=== PATIENT | male | born 1935 | race Caucasian/White ===

== ENCOUNTER → 2017-03-19 | Day surgery (SDC) | payer MEDICARE, BC ==
[2017-03-18 12:30] VITALS: BMI 30.7
[~2017-03-19] MED LIST: Diprivan 20 ML ONE; Propofol 200 MG/20 ML VIAL ONE
--- NOTE | 2017-03-19 09:13 | ECHO ---
TRANSESOPHAGEAL ECHOCARDIOGRAM: DATE OF PROCEDURE: 03/19/17 INDICATION: This is an 81-year-old gentleman with chronic atrial fibrillation. Status post Watchman procedure. DESCRIPTION OF PROCEDURE: The patient was taken to the PACU. The patient was sedated by anesthesiology. A transesophageal probe was placed in the distal esophagus and stomach. Echocardiographic images were obtained. The transesophageal probe was removed. FINDINGS: 1. Moderate decrease in left ventricular systolic function. 2. Biatrial enlargement. 3. Left ventricle is dilated. 4. Moderate mitral regurgitation. 5. Moderate to severe aortic regurgitation. 6. Three small leaflets were noted in the Watchman device. A 2 mm in the center of the device with two peripheral 1 mm leaks noted. 7. Atherosclerotic debris in the descending aorta. 8. Defibrillator wires noted in the right ventricle. IMPRESSION: Status post Watchman with three small leaks with the largest approximately 2 mm. MTDD
--- NOTE | 2017-03-20 06:26 | EKG ---
Test Reason : PREOP ALFONSO Blood Pressure : / mmHG Vent. Rate : 080 BPM Atrial Rate : 079 BPM P-R Int : 000 ms QRS Dur : 164 ms QT Int : 482 ms P-R-T Axes : 000 023 118 degrees QTc Int : 555 ms Electronic ventricular pacemaker Confirmed by BRENDA QUINTANILLA ([id number]) on 03/20/2017 6:26:37 AM Referred By: NETTIE Confirmed By:BRENDA QUINTANILLA
== END ==
LOC: CCL 05:43
PROVIDERS: ATTEND Internal Medicine Cardiovascular Disease
DX: I48.1 Persistent atrial fibrillation (principal); I48.2 Chronic atrial fibrillation; I08.0 Rheumatic disorders of both mitral and aortic valves; I11.9 Hypertensive heart disease without heart failure; R60.9 Edema, unspecified; C92.10 Chronic myeloid leukemia, BCR/ABL-positive, not having achieved remission; T82.538A Leakage of other cardiac and vascular devices and implants, initial encounter; N40.1 Benign prostatic hyperplasia with lower urinary tract symptoms; N39.498 Other specified urinary incontinence; R33.8 Other retention of urine; Z79.01 Long term (current) use of anticoagulants; Z79.899 Other long term (current) drug therapy; Z95.810 Presence of automatic (implantable) cardiac defibrillator; Z95.818 Presence of other cardiac implants and grafts; Z91.81 History of falling
CPT/HCPCS: 93005; 93010; 93312; J2704

== ENCOUNTER 2017-07-14 14:40 | Inpatient (IN) | payer MEDICARE, BC ==
[2017-07-14 15:49] LABS: Bilirubin Small (Negative); Blood, Urine Large (Negative); Clarity TURBID (Clear); Glucose, Urine (Dipstick) Negative (Negative); Leukocyte Large (Negative); Nitrite Negative (Negative); Protein, Urine (Dipstick) Trace mg/dL (Neg-Trace); Specific Gravity, Urine 1.018 (1.002-1.036)
--- NOTE | 2017-07-14 15:50 | RAD ---
PORTABLE CHEST ONE VIEW: 07/14/17 at 3:31 p.m. HISTORY: Cough, wheezing, shortness of breath. FINDINGS/IMPRESSION: Comparison made with exam dated 12/25/10. Left sided pacing device has been placed in the interim. The heart is enlarged. There is consolidatio n/atelectatic changes in the left lung base with probable complete effusion. No pneumothoraces are se en. There is no evidence of karoline pulmonary edema. POS: [facility]
[2017-07-14 15:51] LABS: Bacteria/HPF 3+ HPF (None Seen); Hyaline Casts/LPF 0-3 HYALINE CAST LPF (0-3 Hyaline); Pathc Cast-AUWi Flag 0.13 (0-2.49); RBC/HPF 21-50 HPF (0-3); Squamous Epithelial None Seen HPF (0-3)
--- NOTE | 2017-07-14 15:51 | CT ---
CT BRAIN WITHOUT CONTRAST: HISTORY: Altered mental status. COMPARISON: None. FINDINGS: No acute territorial infarct or hemorrhage. No midline shift or mass effect. Mild atrophy. Mild mi crovascular ischemic changes. The calvarium is intact. The paranasal sinuses and mastoids are clear. IMPRESSION: No acute intracranial abnormality. POS: [facility]
[2017-07-14 15:57] LABS: #Lymphocytes 0.4 thou/uL (1.20-3.40); #Monocytes 0.5 thou/uL (0.11-0.59); #Neutrophils 9.6 thou/uL (1.40-6.50); %Basophils 0.5 % (0.0-1.0); %Eosinophils 0.2 % (0.0-10.0); %Lymphocytes 3.7 % (21.0-51.0); %Monocytes 4.5 % (0.0-10.0); %Neutrophils 91.2 % (42.0-75.0); Hemoglobin 12.9 g/dL (14.0-18.0); Mean Corpuscular Hemoglobin 33.1 pg (27.0-31.0); Platelet Count 126 thou/uL (130-400); RBC Distribution Width 16.1 % (11.5-14.5); Red Blood Cell (RBC) Count 3.91 mill/uL (4.70-6.10); White Blood Cell (WBC) Count 10.5 thou/uL (4.8-10.8)
[2017-07-14 15:59] LABS: Yeast-AUWi Flag 114.5 (0-25.0)
[2017-07-14 16:01] LABS: INR-International Normal Ratio 1.3; PTT 24.5 SEC (22.9-36.1); Prothrombin Time 16.6 SEC (12.0-14.7)
[2017-07-14 16:09] LABS: ALT (SGPT) 33 U/L (8-55); AST (SGOT) 34 U/L (5-34); Albumin 3.2 g/dL (3.4-4.8); Alkaline Phosphatase 135 U/L (40-150); Anion Gap 14 mmol/L (10-20); BUN (Urea Nitrogen) 89 mg/dL (8.4-25.7); CK (CPK) 45 U/L (30-200); Calc. Creatinine Clearance 0 mL/min (70-130); Calcium 8.8 mg/dL (7.8-10.44); Carbon Dioxide 25 mmol/L (23-31); Chloride 106 mmol/L (98-107); Estimated GFR-MDRD 33; Glucose 149 mg/dL (83-110); Lipase 24 U/L (8-78); Potassium 5.3 mmol/L (3.5-5.1); Protein, Total 6.2 g/dL (5.8-8.1); Sodium 140 mmol/L (136-145)
[2017-07-14 16:10] LABS: Yeast-All Forms None Seen HPF (None Seen)
[2017-07-14 16:11] LABS: Actual Bicarbonate (HCO3a) 26.7 mEq/L (22-26); CO2 Tension 61.7 mmHg (35.0-45.0); O2 Tension (PaO2) 79.9 mmHg (80.0-100.0); pH, Arterial 7.25 (7.35-7.45)
[2017-07-14 16:12] LABS: Base Excess (BEa) -1.4 mEq/L (0 (+/-) 2.5); Hematocrit-ABG 38.5 % (42.0-52.0); Hemoglobin (Hb) 12.1 g/dL (14.0-18.0)
[2017-07-14 16:13] LABS: ALV-art Gradient 42.615 (0-20); Analyzer IN Cardio ER; Calcium, Ionized 1.2 mmol/L (1.12-1.30); Puncture Site RBRACH
[2017-07-14 16:14] LABS: Troponin I 0.115 ng/mL (< 0.028)
[2017-07-14 16:15] LABS: CKMB 7.4 ng/mL (0-6.6)
[2017-07-14 16:16] LABS: Anisocytosis SLIGHT = 6-15 cells (100X) (0-5/hpf); MDiff Complete? YES; Macrocytosis SLIGHT = 6-15 cells (100X) (0-5/hpf); Ovalocytes SLIGHT = 2-5 cells (100X) (0-1/hpf); PLT Morphology Comment Appears Decreased; Polychromasia SLIGHT = 2-3 cells (100X) (0-2/hpf); Tear Drops SLIGHT = 2-5 cells (100X) (0-1/hpf)
[2017-07-14] MEDS ORDERED: Vecuronium 10 MG VIAL ONE (16:46)
[2017-07-14] MEDS ORDERED: Water For Injection,Sterile 20 ML ONE (16:47)
[2017-07-14 17:35] LABS: CO2 Tension 34.6 mmHg (35.0-45.0); pH, Arterial 7.43 (7.35-7.45)
[2017-07-14 17:36] LABS: Actual Bicarbonate (HCO3a) 22.6 mEq/L (22-26); Base Excess (BEa) -1.1 mEq/L (0 (+/-) 2.5); Calcium, Ionized 1.1 mmol/L (1.12-1.30); Hematocrit-ABG 36.1 % (42.0-52.0); Hemoglobin (Hb) 11.5 g/dL (14.0-18.0); O2 Tension (PaO2) 112.7 mmHg (80.0-100.0)
[2017-07-14 17:37] LABS: Analyzer IN Cardio ER; Puncture Site LRA
[2017-07-14] MEDS ORDERED: Sedation Protocol FS ONE (17:42)
[2017-07-14] MEDS ORDERED: Aspirin 300 MG Suppository ONE (17:44)
[2017-07-14] MEDS ORDERED: cefTRIAXone\\ROCEPHIN 1 GM in Sodium Chloride 0.9% 100 ML IVPB SCH (17:45)
[2017-07-14] MEDS ORDERED: DISCONTINUE PREVIOUS NARCOTIC PAIN MEDICATIONS AND BENZODIAZEPINES FS SCH (17:55)
[2017-07-14] MEDS ORDERED: Propofol 1,000 MG/100 ML VIAL IV PRN (17:55)
[2017-07-14] MEDS ORDERED: Lorazepam 2 MG/ML VIAL SLOW IVP PRN (17:55)
[2017-07-14] MEDS ORDERED: Morphine 2 MG/ML SYRINGE SLOW IVP PRN (17:55)
[2017-07-14] MEDS ORDERED: Fentanyl BOLUS 250 ML IVPB PRN (17:55)
[2017-07-14] MEDS ORDERED: fentaNYL Citrate/PF 2,000 MCG in Sodium Chloride 0.9% 60 ML IV SCH (18:00)
[2017-07-14] MEDS ORDERED: Fentanyl CADD 0 ML ONE (19:00)
[2017-07-14] MEDS ORDERED: Fentanyl 100 MCG/2 ML VIAL ONE (19:00)
[2017-07-14 19:06] LABS: Troponin I 0.116 ng/mL (< 0.028)
[2017-07-14] MEDS ORDERED: Lorazepam 2 MG/ML VIAL ONE (19:08)
--- NOTE | 2017-07-14 19:31 | RAD ---
PORTABLE CHEST 07/14/17 HISTORY: Post central line placement. COMPARISON: Earlier exam same day. Endotracheal and NG tubes have been placed. NG tube tip is below the hemidiaphragm. Endotracheal tube is in satisfactory position. The right subclavian line is placed. Catheter tip overlying the superio r vena cava. I see no signs of pneumothorax. Pleural and parenchymal changes in the left base appears stable. IMPRESSION: 1. Right subclavian line. Catheter tip overlying the superior vena cava. No signs of pneumothora x. 2. Endotracheal and NG tubes in satisfactory position. POS: [facility]
[2017-07-14] MEDS ORDERED: Nitroglycerin 0.4 MG TAB (25 Tab Bottle) PO PRN (21:00)
[2017-07-14] MEDS ORDERED: Bisacodyl 10 MG SUPP PR PRN (21:00)
[2017-07-14] MEDS ORDERED: Ondansetron ODT 4 MG TAB PO PRN (21:00)
[2017-07-14] MEDS ORDERED: Ondansetron HCl/PF 4 MG/2 ML Vial IVP PRN (21:00)
[2017-07-14] MEDS: cefTRIAXone\\ROCEPHIN 1 GM, Syringe 0.4 ML in Sterile Water 9.6 ML SLOW IVP SCH (21:01)
[2017-07-14] MEDS ORDERED: Lacri-Lube Opth Oint 3.5 GM TUBE EA EYE PRN (21:02)
[2017-07-14] MEDS ORDERED: Acetaminophen 650 MG/20.3 ML UDCUP PO PRN (21:05)
[2017-07-14] MEDS ORDERED: Carvedilol 3.125 MG TAB PER TUBE SCH (21:15)
--- NOTE | 2017-07-14 21:35 | HP ---
DATE OF ADMISSION: 07/14/2017 PRIMARY CARE PHYSICIAN: Dr. Tico Flores. PRIMARY RECRUITING ASSISTANT: Dr. Remington Raygoza. PRIMARY UROLOGIST: Dr. Gideon Guillen. CHIEF COMPLAINT: Shortness of breath, generalized weakness with fever of 3 days' duration. HISTORY OF PRESENT ILLNESS: Patient is an 82-year-old white male with chronic systolic heart failure ; chronic atrial fibrillation, status post Watchman procedure; hypertension; prostate cancer, status post suprapubic catheter; and CML presented to the hospital by EMS with above complaints. Patient was discharged from inpatient rehabilitation last week. Over the last 3-4 days, patient deve loped gradual worsening shortness of breath along with generalized weakness. He was febrile since night. The shortness of breath was worse on lying down as well as minimal exertion. He also had some cough productive of small amount of thick phlegm. Patient tried using [id number] cough me dications without much help. The home healthcare nurse instructed, the patient to call EMS after dis cussion with his primary care physician. In the emergency room, his initial vital signs showed temperature 97.7, respirations 19, pulse of 74, blood pressure of 117/62 with O2 saturation of 88% on room air. His initial blood gas showed pH of 7.25 with pCO2 of 61.7. He was subsequently intubated and placed on mechanical ventilation. His inf luenza B testing was positive. His troponin was 0.115 with BNP closed to 9000. His creatinine was a lso elevated at 1.93 compared to his baseline of 1.3. He received Levaquin, vancomycin, aspirin with IV fluids. A central line was also placed. PAST MEDICAL HISTORY: 1. Chronic systolic heart failure, ejection fraction 30%-35% range, status post AICD. This was upgr aded to biventricular ICD in 01/2017. 2. Hypertension. 3. Chronic kidney disease, stage 3. 4. Chronic myeloid leukemia. 5. Prostatic enlargement with urinary retention, status post suprapubic catheter. 6. Chronic atrial fibrillation, status post Watchman device. Patient is not on anticoagulation at t his time. 7. History of recurrent falls. 8. Physical deconditioning. 9. Chronic venous stasis with ulceration followed by home wound care. PAST SURGICAL HISTORY: 1. Thyroglossal duct excision. 2. Hemorrhoidectomy. 3. Uvula surgery. 4. Decortication of the right chest. 5. Defibrillator placement with subsequent upgrade. 6. AV hiren ablation. ALLERGIES: No known drug allergies. CURRENT HOME MEDICATIONS: To be verified with the family. Please note that the history was obtained from the spouse at the bedside. Patient is currently intubated and sedated after noninvasive positi ve pressure ventilation failure. SOCIAL HISTORY: Patient currently lives at home with his family. No tobacco, alcohol, or drug use. He is FULL CODE, makes his own decisions with the help of his family. 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 FAMILY HISTORY: Positive for diabetes. REVIEW OF SYSTEMS: Cannot be obtained from the patient due to current cognitive status. PHYSICAL EXAMINATION: VITAL SIGNS: As discussed above. GENERAL: An 82-year-old male, intubated on mechanical ventilation. HEENT: Head atraumatic, normocephalic. Sclerae anicteric. Dry mucous membranes. No oral lesion. NECK: Supple. Neck veins somewhat distended. No carotid bruit. LUNGS: Showed bibasilar crackles with scattered rhonchi. No wheezing. Endotracheal tube noted. HEART: S1, S2 present. Regular rate and rhythm. No rubs or gallops appreciated, 2/6 systolic murmu r over the mitral area. ABDOMEN: Soft, bowel sounds present. No rigidity or guarding. EXTREMITIES: Changes from chronic venous stasis right leg more than left leg noted. There was 2+ ed yifan. NEUROLOGIC AND PSYCHIATRIC: Could not be done due to current cognitive status. SKIN: As discussed above. LYMPH NODES: No palpable lymph nodes in the neck. PERIPHERAL VASCULAR: Radial pulses palpable bilaterally. MUSCULOSKELETAL: No joint swelling or tenderness. LABORATORY FINDINGS: As discussed above. Platelet was 126 with hemoglobin 12.9. ABGs as discussed above. Potassium was 5.3. Repeat troponin 0.116. Urinalysis showed greater than 50 wbc's with 3+ b acteria. Influenza B testing was positive. Chest x-ray by my review showed consolidation at the lef t lung base. EKG by my review showed paced rhythm. IMPRESSION: 1. Acute hypoxic and hypercapnic respiratory failure secondary to pneumonia and influenza B infectio n. 2. Healthcare-associated pneumonia, suspected pneumococcal. 3. Acute influenza B infection. 4. Chronic systolic heart failure, ejection fraction 30%-35% range, status post biventricular AICD. 5. Hyperkalemia. 6. Acute kidney injury on chronic kidney disease, stage 3. 7. Chronic anemia. 8. Thrombocytopenia. 9. History of chronic-myeloid leukemia. 10. History of atrial fibrillation, status post Watchman device. 11. Chronic venous stasis with ulceration followed by Wound Care. 12. 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 13. Physical deconditioning. 14. Abnormal liver function tests, probably secondary to passive hepatic congestion from congestive heart failure. Bilirubin was 2.0. 15. Questionable urinary tract infection versus colonization from suprapubic catheter. 16. Elevated troponins probably secondary to demand ischemia. 17. Mild protein-calorie malnutrition. PLAN: Patient will be monitored in the critical care unit. Empiric antibiotics will be continued. We will treat influenza B with Tamiflu dose adjusted for renal function. Cardiology, Pulmonary, and Urology consultation. Repeat labs on the daily basis. Gentle IV hydration due to acute kidney injur y. Hold diuretics for now. Confirm home medications and start accordingly. Vital signs per protoco l. Nebulizer treatment as needed.
[2017-07-14] MEDS: Famotidine/PF 20 mg/2ml Vial SLOW IVP SCH (21:50)
[2017-07-14] MEDS: Oseltamivir 6 MG/ML ORAL SUSP PO SCH (21:51)
[2017-07-14 22:37] LABS: Troponin I 0.113 ng/mL (< 0.028)
--- NOTE | 2017-07-15 02:52 | CON ---
DATE OF CONSULTATION: 07/14/2017 HISTORY OF PRESENT ILLNESS: Clement Alvarez is an 82-year-old gentleman whom I have seen in the remote past. I got his extensive history from his . He is presently intubated. He came to the ER with mental status change, found to be hypoxic, less responsive, ER physician intubated him. states for the last week, he has been feeling poorly. He has been having a cough, but over the last 24-48 hours, his condition got worse with fever, yellow sputum. Called the primary care physici an, Dr. Flores, he was told to come to the hospital and get admitted. Extensive history as previously outlined. In January, he underwent a Watchman procedure at [facility]. Hospital course was complicated by him having a suprapubic placed and he has got a large prostate . He then saw [facility] urologist, Dr. Guillen, and placed a suprapubic. We actually planned to duffy ve resection, but because of his overall weakness, this has been postponed. He was in the rehab for a period of time, has had home health at home with marked lower extremity swelling and marked weaknes s. The appetite has been good. PAST MEDICAL HISTORY: Pertinent for previous CLL, chronic atrial fibrillation, renal failure. PAST SURGICAL HISTORY: As noted decortication years ago, hemorrhoid surgery, pacemaker insertion, AI CD. MEDICATIONS: List of medicine from home includes Coumadin 5, , Entresto, Lasix 60, , Coreg 50 twice a day, Tylenol, Xanax. ALLERGIES: None. SOCIAL HISTORY: No tobacco abuse at this time. FAMILY HISTORY: Unremarkable. 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 He does have vision problems basically. REVIEW OF SYSTEMS: Unobtainable. Post-intubation, he is sedated on the vent. PHYSICAL EXAMINATION: VITAL SIGNS: His sats were 96%, blood pressure 130/80, respirations 18. CHEST: Bilateral rhonchi. CARDIOVASCULAR: Normal S1, S2. No gallops. IMAGING: All x-rays and reports were reviewed. He has got cardiomegaly, pacemaker, left pleural eff usion. CT of the brain was unremarkable. LABORATORY DATA: White count 10,000, H&H 12 and 41, platelet count is 126. PO2 prior to intubation 79, pCO2 of 60, pH 7.25; post-intubation, pO2 of 112, pCO2 of 37, pH 7.43. INR is 1.3. Creatinine is 1.93, BUN is 89. BNP was 8883. CK-MB 74. Urine shows blood. Influenza A is positive. IMPRESSION: 1. Multiorgan failure. 2. Influenza A with superimposed tracheobronchitis pneumonia. 3. Indwelling Dailey. 4. Recent Watchman. 5. Stasis. 6. Renal failure. 7. Respiratory failure. 8. Previous decortication. PLAN: He will be transferred to the ICU once the bed is available. Vent support, Tamiflu, antibiotics, minimize sedation. Forty minutes critical care time.
[2017-07-15 05:37] LABS: #Lymphocytes 0.4 thou/uL (1.20-3.40); #Monocytes 0.3 thou/uL (0.11-0.59); #Neutrophils 8.7 thou/uL (1.40-6.50); %Basophils 0.1 % (0.0-1.0); %Eosinophils 0.2 % (0.0-10.0); %Lymphocytes 4.1 % (21.0-51.0); %Monocytes 3.4 % (0.0-10.0); %Neutrophils 92.2 % (42.0-75.0); Hemoglobin 11.4 g/dL (14.0-18.0); Mean Corpuscular HGB CONC 32.2 g/dL (32.0-36.0); Mean Corpuscular Hemoglobin 33.4 pg (27.0-31.0); Mean Platelet Volume 9.1 fL (7.4-10.4); Platelet Count 103 thou/uL (130-400); Red Blood Cell (RBC) Count 3.42 mill/uL (4.70-6.10); White Blood Cell (WBC) Count 9.5 thou/uL (4.8-10.8)
[2017-07-15 05:58] LABS: Digoxin 0.79 ng/mL (0.8-2.0)
[2017-07-15 06:05] LABS: ALT (SGPT) 28 U/L (8-55); AST (SGOT) 31 U/L (5-34); Albumin 2.5 g/dL (3.4-4.8); Alkaline Phosphatase 105 U/L (40-150); Anion Gap 12 mmol/L (10-20); BUN (Urea Nitrogen) 86 mg/dL (8.4-25.7); Bilirubin, Total 1.6 mg/dL (0.2-1.2); Calc. Creatinine Clearance 40 mL/min (70-130); Calcium 8.4 mg/dL (7.8-10.44); Carbon Dioxide 27 mmol/L (23-31); Chloride 109 mmol/L (98-107); Estimated GFR-MDRD 36; Globulin 2.4 g/dL (2.4-3.5); Glucose 74 mg/dL (83-110); Magnesium 2.2 mg/dL (1.6-2.6); Phosphorus 3.4 mg/dL (2.3-4.7); Potassium 4.5 mmol/L (3.5-5.1); Protein, Total 4.9 g/dL (5.8-8.1); Sodium 143 mmol/L (136-145)
[2017-07-15] MEDS ORDERED: ALPRAZolam 0.25 MG TAB PO SCH (06:20)
[2017-07-15 07:47] LABS: Actual Bicarbonate (HCO3a) 23.8 mEq/L (22-26); Analyzer IN Cardio ER; Base Excess (BEa) 0.3 mEq/L (0 (+/-) 2.5); CO2 Tension 34.8 mmHg (35.0-45.0); Calcium, Ionized 1.2 mmol/L (1.12-1.30); Hemoglobin (Hb) 11.4 g/dL (14.0-18.0); O2 Tension (PaO2) 108.8 mmHg (80.0-100.0); pH, Arterial 7.45 (7.35-7.45)
[2017-07-15 07:48] LABS: Puncture Site L.R.
--- NOTE | 2017-07-15 08:16 | RAD ---
PORTABLE CHEST ONE VIEW: Date: 07-15-17 Time: 5:14 a.m. History: Respiratory failure. FINDINGS/IMPRESSION: No significant interval change is seen since the previous day's exam. POS: [facility]
[2017-07-15] MEDS ORDERED: Carvedilol 3.125 MG TAB PER TUBE SCH (09:00)
[2017-07-15] MEDS: Aspirin 81 mg Enteric Coated Tablet PO SCH (09:30)
[2017-07-15] MEDS: Oseltamivir 6 MG/ML ORAL SUSP PO SCH ×2 (09:30→20:32)
[2017-07-15] MEDS: Clopidogrel Bisulfate 75 MG TAB PO SCH (09:30)
[2017-07-15] MEDS: Enoxaparin Sodium 30 MG/0.3 ML SYRINGE SC SCH (09:30)
[2017-07-15] MEDS: Saccharomyces boulardii 250 MG CAP PER TUBE SCH (09:30)
--- NOTE | 2017-07-15 11:01 | PDOC.PN ---
- Subjective Encounter Start Date: 07/15/17 Encounter Start Time: 10:59 Mr. Alvarez was seen in follow-up of acute respiratory failure. He is intubated, and wake, and alert following commands. He indicates no problems. - Objective Resuscitation Status: Resuscitation Status FULL:Full Resuscitation MAR Reviewed: Yes Vital Signs & Weight: Vital Signs (12 hours) Temp Pulse Resp BP 07/15/17 10:25 70 140/55 L 07/15/17 06:49 70 127/55 L 07/15/17 06:00 20 07/15/17 04:00 20 07/15/17 03:00 98.4 F 07/15/17 02:51 70 137/62 07/15/17 02:00 20 07/15/17 00:12 71 136/63 07/15/17 00:00 98 F 20 Weight Weight 197 lb 5.019 oz Most Recent Monitor Data Heart Rate from ECG 70 NIBP 132/60 NIBP BP-Mean 101 Respiration from ECG 20 SpO2 100 I&O: 07/14/17 07/15/17 07/16/17 06:59 06:59 06:59 Intake Total 49 Output Total 890 60 Balance -841 -60 Result Diagrams: 07/15/17 05:15 07/15/17 05:15 Additional Labs: Accuchecks 07/15/17 00:51 POC Glucose 96 Phys Exam - Physical Examination HEENT: PERRLA Respiratory: wheezing present + rhonchi and wheezing bilaterally Cardiovascular: RRR, no significant murmur Gastrointestinal: soft, non-tender, positive bowel sounds Musculoskeletal: edema present trace pedal edema, and chronic venous stasis changes Dx/Plan (1) Acute and chronic respiratory failure Code(s): J96.20 - ACUTE AND CHR RESP FAILURE, UNSP W HYPOXIA OR HYPERCAPNIA Status: Acute (2) Pneumonia, community acquired Code(s): J18.9 - PNEUMONIA, UNSPECIFIED ORGANISM Status: Acute (3) Chronic systolic heart failure Code(s): I50.22 - CHRONIC SYSTOLIC (CONGESTIVE) HEART FAILURE Status: Acute (4) Chronic kidney disease, stage 3 Code(s): N18.3 - CHRONIC KIDNEY DISEASE, STAGE 3 (MODERATE) Status: Acute - Plan * Acute on chronic respiratory failure due to Pneumonia, and INfluenza B- he is currently on the ventilator, wean as per Pulmonary/Critical care * Continue Rocephin and Levaquin * Influenza B- Continue Tamiflu * Chronic systolic heart failure- clinically compensated * Continue GI, and DVT prophylaxis.
--- NOTE | 2017-07-15 11:35 | PRG ---
DATE OF SERVICE: 07/15/2017 SUBJECTIVE: This morning, he is sedated in low dose Diprivan. OBJECTIVE: VITAL SIGNS: Sats are 100%, respirations 18, pulse 80, blood pressure 130/80. GENERAL: He opens his eyes. He is weak. CHEST: Decreased breath sounds without any wheezing. CARDIAC: Normal S1, S2, no gallops. ABDOMEN: Soft, no masses. LABORATORY DATA AND X-RAY FINDINGS: X-ray shows left pleural effusion. White count 9000, H&H is 11 and 35, platelet count is low 103, PO2 was 108, PCO2 34, pH 7.45, rate of 20, 40%. Creatinine is 1.8 , BUN is 86. Albumin is low 2.5. IMPRESSION: Respiratory failure, azotemia, influenza A, severe deconditioning and dementia. PLAN: Start IV fluids at 50 an hour, start nutrition, PT, minimize sedation. In the meantime, deep venous thrombosis prophylaxis, proton pump inhibitors, Tamiflu, antibiotics. W e will follow. One-half hour critical care time.
[2017-07-15] MEDS ORDERED: Sodium Chloride 0.9% 1,000 ML IV SCH (12:00)
[2017-07-15] MEDS ORDERED: DC Sedation Protocol FS ONE (14:16)
[2017-07-15] MEDS: Meropenem 1 GM in Sterile Water 20 ML SLOW IVP SCH (16:07)
--- NOTE | 2017-07-15 18:37 | CON ---
DATE OF CONSULTATION: 07/15/2017 HISTORY OF PRESENT ILLNESS: Clement Alvarez is an 82-year-old gentleman who presents with weakness and respiratory failure. The patient has a history of cardiomyopathy. He previously has had an automatic implantable cardiac defibrillator. He also has had a history of chronic renal insufficiency. The patient also has atrial fibrillation and has undergone Watchman procedure. The patient also has had a suprapubic catheter placed for prostate carcinoma. The patient was in his usual state of health when he started having fevers and chills for several days and he has started feeling extremely weak. The patient was emergently intubated and sent to the ICU. PAST MEDICAL HISTORY: 1. Cardiomyopathy. 2. CML. 3. CAD. 4. Prostate carcinoma. 5. Atrial fibrillation. PAST SURGICAL HISTORY: Hemorrhoidectomy, uvula surgery, and decortication of his chest. ALLERGIES: None. MEDICATIONS: See nursing list. SOCIAL HISTORY: Lives with his . REVIEW OF SYSTEMS: Not obtainable. PHYSICAL EXAMINATION: GENERAL: Intubated gentleman who was sedated with blood pressure 132/57. NECK: Full. LUNGS: Coarse breath sounds bilateral. HEART: Regular rate and rhythm, normal S1, S2 with a 2/6 systolic murmur. ABDOMEN: Distended. EXTREMITIES: Showed moderate bilateral edema. LABORATORY DATA AND IMAGING DATA: White blood count 9.5, hemoglobin 11.4, hematocrit 35.5, and platelets 103. Sodium is 143, potassium 4.5, chloride 109 , bicarbonate 27, BUN 86, creatinine 1.8, troponin 0.113. His EKG revealed ventricular paced rhythm. IMPRESSION: 1. Sepsis, enterococcal sepsis. 2. Influenza. 3. Cardiomyopathy. 4. History of automated implantable cardioverter-defibrillator placement. 5. Permanent atrial fibrillation. 6. History of Watchman device. 7. Chronic renal failure. 8. Prostate carcinoma. 9. History of CLL. PLAN: This gentleman presents with enterococcal sepsis. From a cardiac standpoint, he is receiving IV antibiotics for his infection. We will check an echocardiogram to see if there is any evidence of vegetations. We will follow this patient with you through his hospitalization. Critical care time 30 minutes. [facility]
[2017-07-15] MEDS: Famotidine/PF 20 mg/2ml Vial SLOW IVP SCH (20:31)
[2017-07-15] MEDS: Carvedilol 6.25 MG TAB PER TUBE SCH (20:31)
[2017-07-15] MEDS: cefTRIAXone\\ROCEPHIN 1 GM, Syringe 0.4 ML in Sterile Water 9.6 ML SLOW IVP SCH (20:31)
[2017-07-15] MEDS ORDERED: Meropenem 1 GM in Sodium Chloride 0.9% 100 ML IVPB SCH (22:00)
[2017-07-16] MEDS ORDERED: Dextrose 5% in Water 1,000 ML IV PRN (00:06)
[2017-07-16] MEDS ORDERED: Dextrose 50% Abboject 50 ML SYRINGE IVP PRN (00:06)
[2017-07-16] MEDS: Dextrose 5 %-0.45 % NaCl 1,000 ML IV SCH ×2 (00:07→18:17)
[2017-07-16 04:45] LABS: #Basophils 0.1 thou/uL (0.0-0.2); #Lymphocytes 0.3 thou/uL (1.20-3.40); #Monocytes 0.6 thou/uL (0.11-0.59); #Neutrophils 9.5 thou/uL (1.40-6.50); %Basophils 0.8 % (0.0-1.0); %Eosinophils 0.2 % (0.0-10.0); %Monocytes 5.4 % (0.0-10.0); %Neutrophils 90.7 % (42.0-75.0); Hemoglobin 11.8 g/dL (14.0-18.0); Mean Corpuscular HGB CONC 31.1 g/dL (32.0-36.0); Mean Platelet Volume 8.9 fL (7.4-10.4); Platelet Count 103 thou/uL (130-400); RBC Distribution Width 16.3 % (11.5-14.5); Red Blood Cell (RBC) Count 3.57 mill/uL (4.70-6.10); White Blood Cell (WBC) Count 10.5 thou/uL (4.8-10.8)
[2017-07-16 05:43] LABS: ALT (SGPT) 26 U/L (8-55); AST (SGOT) 27 U/L (5-34); Albumin 2.5 g/dL (3.4-4.8); Alkaline Phosphatase 102 U/L (40-150); Anion Gap 11 mmol/L (10-20); BUN (Urea Nitrogen) 71 mg/dL (8.4-25.7); Bilirubin, Total 1.6 mg/dL (0.2-1.2); Calc. Creatinine Clearance 46 mL/min (70-130); Calcium 8.1 mg/dL (7.8-10.44); Carbon Dioxide 27 mmol/L (23-31); Chloride 112 mmol/L (98-107); Estimated GFR-MDRD 42; Globulin 2.6 g/dL (2.4-3.5); Glucose 77 mg/dL (83-110); Magnesium 2.2 mg/dL (1.6-2.6); Phosphorus 4.1 mg/dL (2.3-4.7); Potassium 4.1 mmol/L (3.5-5.1); Protein, Total 5.1 g/dL (5.8-8.1); Sodium 146 mmol/L (136-145)
--- NOTE | 2017-07-16 08:43 | RAD ---
PORTABLE UPRIGHT FRONTAL CHEST RADIOGRAPH: Date: 07-16-17 History: Ventilated patient. Comparison: 07-15-17 FINDINGS: There is a metallic structure overlying the left aspect of the cardiac silhouette inferior to the lef t mainstem bronchus, stable. This may represent a closure device. Stable right sided vascular cathete r. Nasogastric tube and endotracheal tube have been removed. There is no pneumothorax. There is mild increased linear density in the medial right base, stable. There is dense opacity in the left lung base suggesting left lower lobe consolidation/collapse and le ft pleural effusion. IMPRESSION: Interval removal of endotracheal tube and nasogastric tube. Dense opacity in the left lung base for w hich follow up is advised. POS: [facility]
--- NOTE | 2017-07-16 08:59 | PRG ---
DATE OF SERVICE: 07/16/2017 This morning he is awake and responsive. He was choking on some liquids. X-ray shows pleural effusi on. Echo was done which shows EF is 20% plus apparently there is vegetation in the mitral valve, thi s is something unusual. PHYSICAL EXAMINATION: VITAL SIGNS: Blood pressure 130/56, sats 97, respirations 21, temperature 97. CHEST: Chest revealed decreased breath sounds without any wheezing. CARDIAC: Normal S1-S2. ABDOMEN: Soft. No masses. LABORATORY: White count 10,000, H&H 11 and 30, platelet count 103. Creatinine is 1.5, BUN 71. Albu min 2.4. Enterococcus in the blood. IMPRESSION: 1. Respiratory failure. 2. Encephalopathy with influenza A. 3. Left pleural effusion. 4. Renal failure. 5. Congestive heart failure. 6. Encephalopathy. 7. Deconditioning. 8. Presumably endocarditis. PLAN: Meropenem was started yesterday, adjusted for his renal dose for his Enterococcus, so far the blood cultures are negative. 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 Await input from Cardiology. He already has and elevated BUN and creatinine. He was given diuretics, monitor his renal function. Prognosis remains guarded. I will follow.
[2017-07-16] MEDS: Spironolactone 25 MG TAB PO SCH (09:25)
[2017-07-16] MEDS: Clopidogrel Bisulfate 75 MG TAB PO SCH ×2 (09:26→11:53)
[2017-07-16] MEDS: Aspirin 81 mg Enteric Coated Tablet PO SCH ×3 (09:26→11:54)
[2017-07-16] MEDS: Carvedilol 6.25 MG TAB PER TUBE SCH ×3 (09:26→20:31)
[2017-07-16] MEDS: Sacubitril 24.5 MG/Valsartan 25.5 MG TABLET PO SCH ×3 (09:27→20:32)
[2017-07-16] MEDS: Oseltamivir 6 MG/ML ORAL SUSP PO SCH ×3 (09:27→20:32)
[2017-07-16] MEDS: Saccharomyces boulardii 250 MG CAP PER TUBE SCH ×2 (09:27→11:53)
[2017-07-16] MEDS: Enoxaparin Sodium 30 MG/0.3 ML SYRINGE SC SCH (09:29)
[2017-07-16] MEDS: Meropenem 1 GM in Sterile Water 20 ML SLOW IVP SCH ×4 (09:29→23:41)
--- NOTE | 2017-07-16 09:36 | PDOC.PN ---
- Subjective Encounter Start Date: 07/16/17 Encounter Start Time: 09:34 Mr. Alvarez has been extubated. He is very weak. He denies feeling short of breath. He denies chest pain. - Objective Resuscitation Status: Resuscitation Status FULL:Full Resuscitation MAR Reviewed: Yes Vital Signs & Weight: Vital Signs (12 hours) Temp Pulse Resp Pulse Ox 07/16/17 07:31 97 07/16/17 07:29 70 21 H 97 07/16/17 07:14 97.8 F 70 20 97 07/16/17 03:00 98.8 F 07/15/17 23:33 70 24 H 100 07/15/17 23:00 98.8 F Weight Admit Weight 197 lb Weight 198 lb 6.656 oz Most Recent Monitor Data Heart Rate from ECG 70 NIBP 130/58 NIBP BP-Mean 67 Respiration from ECG 20 SpO2 99 I&O: 07/15/17 07/16/17 07/17/17 06:59 06:59 06:59 Intake Total 49 1420 50 Output Total 890 2075 234 [facility] -841 -655 -184 Result Diagrams: 07/16/17 04:20 07/16/17 04:20 Additional Labs: Accuchecks 07/16/17 07/15/17 07/15/17 04:25 22:57 16:50 POC Glucose 74 68 L 77 Phys Exam - Physical Examination HEENT: PERRLA + wheezing bilaterally no rales Cardiovascular: RRR, no significant murmur Gastrointestinal: soft, non-tender, positive bowel sounds Musculoskeletal: no edema + chronic venous stasis changes Dx/Plan (1) Acute and chronic respiratory failure Code(s): J96.20 - ACUTE AND CHR RESP FAILURE, UNSP W HYPOXIA OR HYPERCAPNIA Status: Acute (2) Pneumonia, community acquired Code(s): J18.9 - PNEUMONIA, UNSPECIFIED ORGANISM Status: Acute (3) Chronic systolic heart failure Code(s): I50.22 - CHRONIC SYSTOLIC (CONGESTIVE) HEART FAILURE Status: Acute (4) Chronic kidney disease, stage 3 Code(s): N18.3 - CHRONIC KIDNEY DISEASE, STAGE 3 (MODERATE) Status: Acute - Plan * Influenza B with Pneumonia- Continue Tamiflu, and Meropenem and Levaquin * Patient has been found to have Enterococcus sepsis, and a possible vegetation on one of his heart valves- will continue Meropenem, and Consult ID for further recommendations * Chronic systolic heart failure- compensated * History of AFIB, and s/p Watchman procedure * CKD stage 3- stable .
[2017-07-16] MEDS: Furosemide 40 MG/4 ML VIAL SLOW IVP SCH (15:28)
--- NOTE | 2017-07-16 17:40 | CON ---
DATE OF CONSULTATION: 07/16/2017 REASON FOR CONSULTATION: Bacteremia. HISTORY OF PRESENT ILLNESS: An 82-year-old who has a history of renal insufficiency and chronic myeloid leukemia and cardiomyopathy with systolic CHF , EF 30%-35% with an AICD in place, recently upgraded to a biventricular ICD in 01/2017. The patient also had a Watchman device placed to allow withholding of anticoagulation because of concern with his falling episodes. Patient also has prostate cancer and enlarged prostate gland and has had a suprapubic catheter placed and is monitored by Dr. Gideon Guillen. The patient was in rehab and then was discharged and over the past few days developed worsening dyspnea and fever and then it became dyspneic to the extent that he could not tolerate any effort. A little bit of cough, but no sputum production. He was then brought to emergency room. In the emergency room, he had a temperature 97, respirations 19, pulse 74, pressure 117/62, O2 sat 88%. Initial pH 7.25 and pCO2 61. Following this, he was intubated. His influenza B test was positive, troponin 0.115. BNP was 9000, creatinine was 1.93, which was elevated compared with his baseline. He was given vancomycin, Levaquin, and IV fluids, central line placed in the right subclavian position, has been extubated and was transferred to the [facility]. He is awake and oriented, a little drowsy, in the room with him, has had no headaches, no visual symptoms, sore throat, odynophagia, dysphagia, no back pain, no chest pain or abdominal pain. His suprapubic catheter has been exchanged by Dr. Guillen. He has had no diarrhea. PAST MEDICAL HISTORY: Cardiomyopathy with EF 30%-35%, AICD in place, Watchman device placed, hypertension, renal insufficiency stage 3, CML, prostate cancer with suprapubic catheter, chronic atrial fibrillation, and venous stasis with ulceration. PAST SURGICAL HISTORY: Thyroglossal duct excision, some uvula surgery, right chest decortication for unknown reason, AICD placement, AV hiren ablation, and Watchman procedure placement. ALLERGIES: None. CURRENT MEDICATIONS: Tylenol, DuoNeb, Ecotrin, Dulcolax, Coreg, ceftriaxone, Plavix, dextrose, enoxaparin, furosemide, levofloxacin, meropenem, oseltamivir, and sacubitril/valsartan. 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 Never smoker, and lives in [place]. FAMILY HISTORY: Diabetes mellitus type 2. PHYSICAL EXAMINATION: VITAL SIGNS: Temperature max of 101, is currently 97.7, blood pressure 119/49, pulse 70, respirations 21, and O2 sat 100%. SKIN: Shows area of bruising in the mental region. He has a lot of areas of bruising in some superficial lacerations in the upper extremities and evidence of stasis dermatitis with shallow punched out ulcers in the feet, right and left side area of extensive bruising in the left lower extremity. The patient has a right subclavian central line and a suprapubic catheter in place. There is no lymphadenopathy. Male pattern alopecia. Oral cavity with still quite numerous teeth in place with the expected decay and gum disease. HEENT: Ocular movements are conjugate. Pupils are equal and reactive. NECK: Supple neck and some jugular venous distention. LUNGS: Basilar inspiratory crackles. HEART: S1, S2 with a soft murmur at the aortic area. Irregular rate. ABDOMEN: Soft, not distended or tender. No ascites. No bladder distention. The suprapubic catheter exit site appears normal, diffusely weak, but able to move four extremities equally. Trace edema in lower extremities. Pulses are 1 + in dorsalis pedis. NEUROLOGIC: He is awake, knows his name, recognizes his , oriented. LABORATORY DATA: White cell count 10.5, hemoglobin 11.8, MCV 106, platelets 103 with 90% neutrophils. INR 1.3. Last blood gas pH 7.45, pCO2 of 34, pO2 108 , sodium 146, creatinine is down to 1.59, calcium 8.1, bilirubin 1.6, AST and ALT normal, alkaline phosphatase is 102, albumin 2.5. Urinalysis with greater than 50 wbcs. The microbiology showed Enterococcus faecalis in 2/2 sets of blood cultures, the vancomycin resistance gene was not detected. Urine culture had gram negative monique and gram positive cocci and Enterococcus species identified. All three had greater than 100,000 CFUs per mL. The patient had a chest x-ray with interval removal of endotracheal tube and dense opacity of the left lung base for which followup was advised. Brain CT with no acute intracranial abnormality. ASSESSMENT: 1. Cardiomyopathy, does not appear to be ischemic cardiomyopathy by the history with AICD in place. 2. Watchman on device in place. 3. Atrial fibrillation. 4. Prostate cancer with suprapubic catheter. 5. Chronic myeloid leukemia. 4. Enterococcus faecalis bacteremia. 5. Abnormal urinalysis with positive urine cultures with polymicrobial jeffrey. 6. Influenza B infection. DISCUSSION: The main issue here that needs yet to be addressed is the Enterococcus faecalis bacteremia source. The main concern evidently would be the colonization of the device in the chest with endocarditis as a possibility. The patients with suprapubic catheters will inevitably carry bacteria in their bladders and those are (00:00) not necessarily associated with clinical symptoms. In his case, it is possible that the urinary isolate of Enterococcus could be the same, one in the blood and therefore, there could be a relationship between the urine findings and the blood cultures, however, it is also possible that he became colonized in the AICD leads and now we are having bacteremia from AICD involvement. Once he is stable enough for testing, I would recommend a transesophageal echocardiogram to clarify this issue. This would then help us decide if he would need long-term antimicrobial therapy. If the AICD has shown to be colonized then evidently would have to consider removal of the device or conservative treatments. Other areas of involvement at this time could also include the lungs, but no evidence of bone or joint involvement. No evidence of intra-abdominal inflammatory process either. MTDD
[2017-07-16] MEDS: cefTRIAXone\\ROCEPHIN 1 GM, Syringe 0.4 ML in Sterile Water 9.6 ML SLOW IVP SCH (18:17)
[2017-07-16] MEDS: Famotidine/PF 20 mg/2ml Vial SLOW IVP SCH (20:31)
--- NOTE | 2017-07-17 06:10 | CON ---
DATE OF CONSULTATION: 07/16/2017 REASON FOR CONSULTATION: 1. 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 2. Indwelling suprapubic tube. 3. Enterococcus bacteremia. 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 The patient has Enterococcus in his blood and this has also been isolated from his indwelling suprapubic tube, which was placed outside of the hospital. I know Mr. Alvarez due to his history of prostate cancer and ongoing urinary retention, which has been going on since this summer. Mr. Alvarez had Dailey catheters for a number of months and ultimately switched to a suprapubic tube for management of his outlet obstruction. He has unfortunately never been healthy enough to undergo any type of treatment for his prostate cancer related outlet obstruction. Professor Alvarez, at the present time, has altered mental status and is not suitable to provide any history. His provides all of the history today. Mrs. Alvarez relates that professor Alvarez's suprapubic tube would intermittently drain for few days approximately 2 weeks after placement. She noticed that urine would soak his clothing and bedding and she was having the used towels to catch the urine that was coming around the suprapubic tube. This suggests that transient obstruction of some type or the catheter being pulled up into the suprapubic tube tract. The patient eventually started draining urine, but by that time he had become dehydrated and had altered mental status. He was brought to the emergency room for evaluation and assessment. Since hospital admission he has had urine and blood specimens, which returned with evidence of Enterococcus. Ordinarily colonization of a suprapubic tube is not a major concern; however, in this case we have an oral history of probable obstruction of the suprapubic tube, which would allow an infection to fester and potentially become a sepsis episode. PAST MEDICAL HISTORY: 1. Cardiomyopathy with reduced ejection fraction of 30% to 35%. 2. AICD in place. 3. Watchman device placed. 4. Hypertension. 5. Renal insufficiency, stage 3. 6. Chronic myelogenous leukemia. 7. Prostate cancer. 8. 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 9. Chronic atrial fibrillation. 10. 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 PAST SURGICAL HISTORY: 1. Thyroglossal duct excision. 2. Uvula surgery. 3. Right chest decortication. 4. AICD placement. 5. AV hiren ablation. 6. Watchman procedure. 7. Prostate needle biopsy. ALLERGIES: No known drug allergies. CURRENT MEDICATIONS: List includes the followin. Tylenol. 2. DuoNebs. 3. Aspirin. 4. Dulcolax. 5. Carvedilol. 6. Ceftriaxone. 7. Clopidogrel bisulfate. 8. Lovenox. 9. Famotidine. 10. Furosemide. 11. Glucagon. 12. Lactulose. 13. Levofloxacin. 14. Meropenem. 15. Zofran ODT. 16. Tamiflu. 17. Entresto. 18. Spironolactone. 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 He is a lifelong nonsmoker and is . His is very attentive and is at bedside. They reside in [place]. FAMILY MEDICAL HISTORY: Significant for diabetes mellitus type 2. REVIEW OF SYSTEMS: The patient himself is unable to participate in the review of systems. Subjectively, Constitutional: The patient had development of altered mental status and generalized illness prior to hospital admission. Eyes : Negative. Head, Ears, Nose, and Throat: Negative. Respiratory: Positive for pulmonary difficulties. Cardiovascular: The patient has known past history of congestive heart failure and atrial fibrillation. Gastrointestinal: No complaints. Genitourinary: The obstructive history of patient's suprapubic tube is relevant to this presentation. The patient also has chronic urinary retention secondary to outlet obstruction from prostate cancer and has renal insufficiency as well. Musculoskeletal: The patient has motor use of the bilateral lower extremities, but does have chronic difficulties with venous stasis ulcers on the bilateral lower extremities. Neurologic: The patient is not able to participate in exam, evaluation, or assessment today. Behavior and Psychologic: The patient acts appropriately, but has altered mental status today. Allergic and Immunologic: Negative history. The patient has no history of drug allergies. PHYSICAL EXAMINATION: VITAL SIGNS: Currently afebrile at 97.6, pulse 70, respirations 22, O2 saturation 99%, blood pressure 124/51. GENERAL: This is a pleasant, elderly white male with altered mental status, not able to participate in his evaluation and assessment. HEAD, EYES, EARS, NOSE AND THROAT: Extraocular movements are intact. Sclerae are anicteric. Oropharynx is clear. LUNGS: Coarse breath sounds heard bilaterally with fine crackles. The patient has an AICD and Watchman device. ABDOMEN: Soft and nontender. Suprapubic tube is in place and appears to be draining correctly at the present time. Due to the acute consideration and contamination of the bladder with an infected SP tube, I did recommend changing that today and did perform sterile change of the patient's suprapubic tube. We replaced his existing 18 Malawian SP tube with a new 18 Malawian SP tube, which passed into the bladder without difficulty. The patient's bladder was irrigated prior to the exchange until clear and then exchanged for a new SP tube. GENITOURINARY: Digital rectal examination was not repeated due to the patient' s known history of prostate cancer. The patient's prostate gland is enlarged to greater than 60 grams by palpation on his last exam and by ultrasound is known to be about 77 grams. The patient's urethra is notable for changes consistent with erosion secondary to indwelling Dailey catheter. EXTREMITIES: The patient's bilateral lower extremities are notable today for markedly reduced edema relative to his usual state. He has chronic changes associated with venous stasis. There is no significant edema present on exam today. LABORATORY STUDIES: The patient's PSA on 12/10/2016 was 10.1, while on maximal medical therapy for obstruction and due to Avodart use the corrected PSA would be over 20. Anatomical pathology reviewed from [facility] shows the patient's multicore prostate needle biopsy performed on 02/24/2017 demonstrated the presence of Brittney pattern 3+4=7 prostate cancer in the patient's right transition zone and patterns of 3+3=6 in the left base and left apex areas of the prostate gland. Current laboratories from [facility] show a white count of 10,500, hemoglobin today is 11.8 with hematocrit of 37.9. The patient does have left shift with 90.7% neutrophils. His ANC is elevated at 9500. Microbiology results showed the presence of blood culture obtained on 07/14/2017 with Enterococcus faecalis in the blood from his right arm, also had Enterococcus species isolated from his bladder as well as gram positive and gram negative cocci consistent with general colonization of the SP tube. Influenza nasal swab obtained on 07/14/2017 was positive for influenza B antigen. ASSESSMENT AND PLAN: 1. Pulmonary presentation with both influenza B and Enterococcus findings. The patient likely has an Enterococcus sepsis, I have think this is probably from a urinary origin based on the patient's 's oral history of several days of obstruction of the suprapubic tube. Usually a functioning suprapubic tube may drain a small amount about the catheter, but not large amounts like described. She also a decreased output through the actual suprapubic tube during the same time. As there was drainage that suggest obstruction event, possibly the catheter being pulled into the tract or kinking of the catheter within the patient's bladder itself. I did go ahead and change his suprapubic tube today with respect to current colonization issues. 2. Prostate cancer. The patient's prostate cancer is not a major at this point , is not contributed to his current presentation. 3. Long-term urinary retention management. Patient and I previously discussed possible radical prostatectomy. He is 82 years old and main reason for that would be to unobstruct him and to get him out of a constant need for an indwelling Dailey catheter or suprapubic tube. At the present time, he does not appear to be in any type of medical condition, we will allow him to proceed with an intervention. Based on the patient's 's request, I am taking him off of the operative schedule and we will reassess his condition at follow up. 4. Suprapubic tube management. I am recommending his suprapubic tube will be changed on a weekly basis, this could be performed by home health. Over 80 minutes of consultation time was spent on the evaluation, assessment of this patient. Coordination with providers and review of records from two hospitalist systems [id number]. RANDA
[2017-07-17] MEDS: Furosemide 40 MG/4 ML VIAL SLOW IVP SCH ×2 (06:30→14:23)
--- NOTE | 2017-07-17 08:14 | RAD ---
PORTABLE CHEST 1 VIEW: DATE: 07/17/17. TIME: 4:48 a.m. HISTORY: Respiratory failure. FINDINGS: Comparison is made with the exam from the previous day. A right-sided central line and left-sided pacemaker device remain in place. The heart is enlarged. There is increased opacification of the left hemithorax likely due to layering of the pleural effusio n. There is pulmonary vascular congestion. No pneumothoraces are seen. POS: CRUZ
[2017-07-17] MEDS: Sacubitril 24.5 MG/Valsartan 25.5 MG TABLET PO SCH ×2 (09:13→20:39)
[2017-07-17] MEDS: Carvedilol 6.25 MG TAB PER TUBE SCH ×2 (09:14→20:39)
[2017-07-17] MEDS: Saccharomyces boulardii 250 MG CAP PER TUBE SCH (09:14)
[2017-07-17] MEDS: Spironolactone 25 MG TAB PO SCH (09:15)
[2017-07-17] MEDS: Oseltamivir 6 MG/ML ORAL SUSP PO SCH ×2 (09:16→20:40)
[2017-07-17] MEDS: Enoxaparin Sodium 30 MG/0.3 ML SYRINGE SC SCH (09:16)
[2017-07-17] MEDS: Clopidogrel Bisulfate 75 MG TAB PO SCH (09:16)
--- NOTE | 2017-07-17 11:56 | PRG ---
DATE OF SERVICE: 07/17/2017 OBJECTIVE: GENERAL: This morning, he is more awake and responsive. VITAL SIGNS: Blood pressure is 133/57, sats on 2 liters, respirations 18, responsive, but extr nel weak. CHEST: Decreased breath sounds, no wheezing. CARDIAC: Normal S1, S2. No gallops. ABDOMEN: Soft. No masses. IMPRESSION: 1. Influenza A. 2. Respiratory failure. 3. Encephalopathy. 4. Possible endocarditis. 5. Enterococcus urinary tract infection. 6. Sepsis. 7. Left-sided pleural effusion. PLAN: He still has a large volume of pleural effusion. He is asymptomatic. We will consider thoracentesis if effusion persists. Continue antibiotics, supportive care. We will follow.
[2017-07-17] MEDS ORDERED: Meropenem 1 GM in Sterile Water 20 ML SLOW IVP SCH (12:00)
--- NOTE | 2017-07-17 12:46 | PDOC.PN ---
- Subjective Encounter Start Date: 07/17/17 Encounter Start Time: 10:40 -: old records requested/rev Pt seen and exmained, chart reviewe din its entirety, this is my first visit with this patient Wfie at bedside, updated to findings and plan Pt cold today, no chills, no Fevers, no CP, no SOB, no N/V/D/C, no GI bleeding, non-productive cough. 10 point ROS performed and neg for all systems except as per HPI - Objective Resuscitation Status: Resuscitation Status FULL:Full Resuscitation MAR Reviewed: Yes Vital Signs & Weight: Vital Signs (12 hours) Temp Pulse Pulse Pulse Pulse Pulse Pulse 07/17/17 09:14 07/17/17 08:46 70 72 80 76 87 07/17/17 08:09 07/17/17 08:06 70 07/17/17 08:00 98.0 F 70 07/17/17 07:00 98.0 F 07/17/17 03:00 98.6 F Resp BP BP BP BP BP BP 07/17/17 09:14 133/54 L 07/17/17 08:46 128/53 L 133/54 L 112/50 L 108/67 110/54 L 07/17/17 08:09 07/17/17 08:06 20 07/17/17 08:00 20 07/17/17 07:00 07/17/17 03:00 Pulse Ox Pulse Ox Pulse Ox Pulse Ox Pulse Ox 07/17/17 09:14 07/17/17 08:46 100 100 98 98 07/17/17 08:09 100 07/17/17 08:06 100 07/17/17 08:00 100 07/17/17 07:00 07/17/17 03:00 Weight Admit Weight 197 lb Weight 192 lb 0.362 oz Most Recent Monitor Data Heart Rate from ECG 86 NIBP 110/54 NIBP BP-Mean 61 Respiration from ECG 23 SpO2 97 I&O: 07/16/17 07/17/17 07/18/17 06:59 06:59 06:59 Intake Total 1420 1258 60 Output Total 4528 1908 800 Balance -655 -1836 -740 Result Diagrams: 07/16/17 04:20 07/16/17 04:20 Additional Labs: Accuchecks 07/17/17 07/17/17 07/16/17 11:48 06:34 23:54 POC Glucose 140 H 128 H 143 H Radiology Reviewed by me: Yes EKG Reviewed by me: Yes Phys Exam - Physical Examination Constitutional: NAD HEENT: PERRLA, moist MMs, sclera anicteric, oral pharynx no lesions Neck: no nodes, no JVD, supple, full ROM Respiratory: no wheezing, no rales, no rhonchi, clear to auscultation bilateral Cardiovascular: RRR, no significant murmur, no rub Gastrointestinal: soft, non-tender, no distention, positive bowel sounds Musculoskeletal: pulses present, edema present Neurological: non-focal, normal sensation, moves all 4 limbs Lymphatic: no nodes Psychiatric: normal affect, A&O x 3 Skin: no rash, normal turgor, cap refill <2 seconds Dx/Plan (1) Influenza Code(s): J11.1 - FLU DUE TO UNIDENTIFIED INFLUENZA VIRUS W OTH RESP MANIFEST Status: Acute Comment: on tamiflu. on prophylaxis (2) Bacteremia due to Enterococcus Code(s): R78.81 - BACTEREMIA; B95.2 - ENTEROCOCCUS THE CAUSE OF DISEASES CLASSIFIED ELSEWHERE Status: Acute Comment: 2/2 sets poitive. on rocpehin - doesnt cover enterococcus, will adjust (3) Acute and chronic respiratory failure Code(s): J96.20 - ACUTE AND CHR RESP FAILURE, UNSP W HYPOXIA OR HYPERCAPNIA Status: Acute Qualifiers: Respiratory failure complication: hypoxia Qualified Code(s): J96.21 - Acute and chronic respiratory failure with hypoxia (4) Chronic kidney disease, stage 3 Code(s): N18.3 - CHRONIC KIDNEY DISEASE, STAGE 3 (MODERATE) Status: Acute Comment: Cr trendign down. 1.59 yesterday. recheck in AM (5) Chronic systolic heart failure Code(s): I50.22 - CHRONIC SYSTOLIC (CONGESTIVE) HEART FAILURE Status: Chronic (6) Pneumonia, community acquired Code(s): J18.9 - PNEUMONIA, UNSPECIFIED ORGANISM Status: Acute Qualifiers: Lung location: unspecified part of lung - Plan cont current plan of care, continue antibiotics, PT/OT, respiratory therapy, out of bed/ambulate * .
[2017-07-17] MEDS: Acetaminophen 325 MG TAB PO PRN (14:19)
[2017-07-17] MEDS ORDERED: Ampicillin 2 GM in Sodium Chloride 0.9% 100 ML IVPB SCH (18:00)
[2017-07-17] MEDS: Ampicillin 2 GM, Syringe 5.2 ML in Sterile Water 14.8 ML SLOW IVP SCH ×2 (18:20→23:46)
[2017-07-17] MEDS: Dextrose 5 %-0.45 % NaCl 1,000 ML IV SCH (18:20)
[2017-07-17] MEDS: Famotidine/PF 20 mg/2ml Vial SLOW IVP SCH (20:39)
[2017-07-17] MEDS ORDERED: Piperacillin/Tazobactam 2.25 GM in Sodium Chloride 0.9% 100 ML IVPB SCH (22:00)
[2017-07-18 04:40] LABS: #Eosinphils 0.1 thou/uL (0.0-0.7); #Lymphocytes 0.5 thou/uL (1.20-3.40); #Monocytes 0.6 thou/uL (0.11-0.59); #Neutrophils 8.3 thou/uL (1.40-6.50); %Eosinophils 0.8 % (0.0-10.0); %Lymphocytes 5.5 % (21.0-51.0); %Monocytes 5.9 % (0.0-10.0); %Neutrophils 87.7 % (42.0-75.0); Hemoglobin 12.1 g/dL (14.0-18.0); Mean Corpuscular Hemoglobin 32.7 pg (27.0-31.0); Mean Platelet Volume 9.1 fL (7.4-10.4); Platelet Count 84 thou/uL (130-400); Red Blood Cell (RBC) Count 3.68 mill/uL (4.70-6.10); White Blood Cell (WBC) Count 9.5 thou/uL (4.8-10.8)
[2017-07-18] MEDS: Furosemide 40 MG/4 ML VIAL SLOW IVP SCH ×2 (05:13→13:13)
[2017-07-18 05:15] LABS: Anion Gap 11 mmol/L (10-20); BUN (Urea Nitrogen) 56 mg/dL (8.4-25.7); Calc. Creatinine Clearance 58 mL/min (70-130); Calcium 8.4 mg/dL (7.8-10.44); Carbon Dioxide 30 mmol/L (23-31); Chloride 110 mmol/L (98-107); Estimated GFR-MDRD 58; Glucose 154 mg/dL (83-110); Potassium 3.8 mmol/L (3.5-5.1); Sodium 147 mmol/L (136-145)
[2017-07-18] MEDS: Ampicillin 2 GM, Syringe 5.2 ML in Sterile Water 14.8 ML SLOW IVP SCH ×3 (06:19→17:31)
[2017-07-18] MEDS: Spironolactone 25 MG TAB PO SCH (07:57)
[2017-07-18] MEDS: Carvedilol 6.25 MG TAB PER TUBE SCH ×2 (08:02→20:08)
[2017-07-18] MEDS: Clopidogrel Bisulfate 75 MG TAB PO SCH (08:03)
[2017-07-18] MEDS: Enoxaparin Sodium 30 MG/0.3 ML SYRINGE SC SCH (08:03)
[2017-07-18] MEDS: Saccharomyces boulardii 250 MG CAP PER TUBE SCH (08:03)
[2017-07-18] MEDS: Aspirin 81 mg Enteric Coated Tablet PO SCH (08:03)
--- NOTE | 2017-07-18 10:19 | PRG ---
DATE OF SERVICE: 07/18/2017 SERVICE: Pulmonary Medicine. INTERVAL HISTORY: The patient is doing well from a respiratory standpoint. He is breathing comforta enoch on room air. He remains extraordinarily weak. He requires 2 people to assist him out of bed int o a chair. Outside of this, there has been no interval change to his condition and he seems to be mo ving in right direction. PHYSICAL EXAMINATION: VITAL SIGNS: Afebrile, pulse 71, blood pressure 110/41, respirations 30, saturation 99% on room air. GENERAL: The patient is awake and alert, in no apparent distress. LUNGS: Decent air entry. There are crackles present. No prolonged expiratory phase or wheezing is appreciated. Rhonchi are present, but clear with cough. HEART: Normal rate, regular. ABDOMEN: Soft, nontender, nondistended. Bowel sounds are positive. MUSCULOSKELETAL: No cyanosis or clubbing. There is trace pitting in the bilateral lower extremities with signs of rapid water loss. GENITOURINARY: Dailey catheter in place. NEUROLOGIC: Grossly nonfocal. LABORATORY DATA: WBC 9.5, hemoglobin 12.1, platelets 84,000 and down trending. INR 1.3. Prior pH w as 7.45 with pCO2 of 35, pO2 of 108. Creatinine 1.20 and down trending. BUN 56 and also down trendi ng. Sodium 147 and trending upward. Basic metabolic profile is otherwise unremarkable. Blood cultu re is growing Enterococcus faecalis in 2/2. There is a pansensitive organism. Urine culture is grow ing Enterococcus, Staph, and Pseudomonas. Staph organism is essentially villa resistant, but does demo nstrate sensitivity to vancomycin and linezolid. Influenza A is negative. Influenza B is positive. ASSESSMENT: 1. Acute hypoxic respiratory failure, resolved. 2. Metabolic encephalopathy, resolved. 3. Deconditioning, severe. 4. 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 5. Urinary tract infection. 6. Severe sepsis, improving. 7. Acute kidney injury, improving. 8. Influenza B. 9. Pleural effusion on the left. PLAN: I will switch his which fluids over to D5 water and continue to make 50 mL per hour for the ne xt 24 hours. We will continue to allow the patient to auto diurese if possible. A dose of Lasix paige l be considered in the morning. If the pleural effusion persists, thoracentesis may need to be consi dered, but he seems to have cleared his inflammatory profile quite nicely. We will continue our mobi lization efforts. The patient is stable for transition out of the ICU to either IMCU or telemetry un it. Pulmonary will continue to follow.
[2017-07-18] MEDS: Dextrose 5% in Water 1,000 ML IV SCH (11:01)
[2017-07-18] MEDS: Acetaminophen 325 MG TAB PO PRN ×2 (11:05→16:28)
[2017-07-18] MEDS: Sacubitril 24.5 MG/Valsartan 25.5 MG TABLET PO SCH ×2 (11:35→20:08)
[2017-07-18] MEDS: Oseltamivir 6 MG/ML ORAL SUSP PO SCH ×2 (11:36→20:08)
--- NOTE | 2017-07-18 12:07 | EKG ---
Test Reason : Blood Pressure : / mmHG Vent. Rate : 070 BPM Atrial Rate : 153 BPM P-R Int : 000 ms QRS Dur : 164 ms QT Int : 430 ms P-R-T Axes : 000 006 053 degrees QTc Int : 464 ms Ventricular-paced rhythm Abnormal ECG Confirmed by YOLANDE BRICE, ROBERT ([id number]), telegraph editor NAKUL ERICKSON ([id number]) on 07/18/2017 12:07:31 PM Referred By: Confirmed By:ROBERT LANIER MD
--- NOTE | 2017-07-18 15:58 | PDOC.PN ---
- Subjective Encounter Start Date: 07/18/17 Encounter Start Time: 11:45 Pt sitting up, getting tired. Breathin g is stable. No CP, no N/V, david po when fed. at bedsdie, still hypervigilant. No overnight vents. questions answered. Pt streamlined to ampicillin for enterococcal bacteremia, ID note reviewed, obvious concern for infected watchman or AICD. PTs said ALFONSO planned for thursday. TTE with possible small mobile vegetation. Would give 2 major Post's Criteria.\ On Cipro for Urine coiverage, though no evidence its more than colonization no other overnight events 10 point ROS performed and neg for all systems except as above - Objective Resuscitation Status: Resuscitation Status FULL:Full Resuscitation MAR Reviewed: Yes Vital Signs & Weight: Vital Signs (12 hours) Temp Pulse Resp BP Pulse Ox 07/18/17 08:02 104/44 L 07/18/17 08:00 97.8 F 70 24 H 100 07/18/17 07:00 97.8 F 07/18/17 06:56 96 07/18/17 06:53 70 23 H 96 07/18/17 04:00 97.7 F Weight Admit Weight 197 lb Weight 191 lb 12.835 oz Most Recent Monitor Data Heart Rate from ECG 70 NIBP 123/54 NIBP BP-Mean 92 Respiration from ECG 17 SpO2 93 I&O: 07/17/17 07/18/17 07/19/17 06:59 06:59 06:59 Intake Total 1258 2122 725 Output Total 3094 2150 985 [facility] -1836 -28 -260 Result Diagrams: 07/18/17 04:15 07/18/17 04:15 Additional Labs: Accuchecks 07/18/17 00:20 POC Glucose 176 H Radiology Reviewed by me: Yes EKG Reviewed by me: Yes Phys Exam - Physical Examination Constitutional: NAD HEENT: PERRLA, moist MMs, sclera anicteric, oral pharynx no lesions Neck: no nodes, no JVD, supple, full ROM coarse rales bilaterally in all lung jackson, sounds wet Cardiovascular: RRR, no significant murmur, no rub Gastrointestinal: soft, non-tender, no distention, positive bowel sounds Musculoskeletal: pulses present, edema present Neurological: non-focal, normal sensation, moves all 4 limbs Lymphatic: no nodes Psychiatric: normal affect, A&O x 3 Skin: no rash, normal turgor, cap refill <2 seconds Dx/Plan (1) Influenza Code(s): J11.1 - FLU DUE TO UNIDENTIFIED INFLUENZA VIRUS W OTH RESP MANIFEST Status: Acute Comment: on tamiflu. on prophylaxis (2) Bacteremia due to Enterococcus Code(s): R78.81 - BACTEREMIA; B95.2 - ENTEROCOCCUS THE CAUSE OF DISEASES CLASSIFIED ELSEWHERE Status: Acute Comment: 2/2 sets positive. on rocephin - doesn't cover enterococcus, changed to Ampicillin. ? ALFONSO thursday. ID following, will need 4-6 weeks of IV antibiotics if endocarditis diagnosed. May need ot consider adding in Gent for artificial device incolvement, but given history of ASHLEY/CKD would be cautius. Cr continues to improve now (3) Acute and chronic respiratory failure Code(s): J96.20 - ACUTE AND CHR RESP FAILURE, UNSP W HYPOXIA OR HYPERCAPNIA Status: Acute Qualifiers: Respiratory failure complication: hypoxia Qualified Code(s): J96.21 - Acute and chronic respiratory failure with hypoxia (4) Chronic kidney disease, stage 3 Code(s): N18.3 - CHRONIC KIDNEY DISEASE, STAGE 3 (MODERATE) Status: Acute Comment: Cr trendign down. 1.59 yesterday. recheck in AM (5) Chronic systolic heart failure Code(s): I50.22 - CHRONIC SYSTOLIC (CONGESTIVE) HEART FAILURE Status: Chronic (6) Pneumonia, community acquired Code(s): J18.9 - PNEUMONIA, UNSPECIFIED ORGANISM Status: Acute Qualifiers: Lung location: unspecified part of lung - Plan * .
[2017-07-18] MEDS: Famotidine/PF 20 mg/2ml Vial SLOW IVP SCH (20:08)
[2017-07-18] MEDS: Insulin Regular 300 UNITS/3 ML VIAL SC PRN (20:57)
[2017-07-19] MEDS: Ampicillin 2 GM, Syringe 5.2 ML in Sterile Water 14.8 ML SLOW IVP SCH ×5 (00:19→23:56)
[2017-07-19 05:11] LABS: Anion Gap 10 mmol/L (10-20); BUN (Urea Nitrogen) 54 mg/dL (8.4-25.7); Calc. Creatinine Clearance 55 mL/min (70-130); Carbon Dioxide 32 mmol/L (23-31); Chloride 106 mmol/L (98-107); Estimated GFR-MDRD 54; Glucose 79 mg/dL (83-110); Magnesium 1.9 mg/dL (1.6-2.6); Phosphorus 2.3 mg/dL (2.3-4.7); Sodium 144 mmol/L (136-145)
[2017-07-19 05:48] LABS: #Eosinphils 0.1 thou/uL (0.0-0.7); #Lymphocytes 0.4 thou/uL (1.20-3.40); #Monocytes 0.5 thou/uL (0.11-0.59); #Neutrophils 7.9 thou/uL (1.40-6.50); %Lymphocytes 4.8 % (21.0-51.0); %Monocytes 5.2 % (0.0-10.0); Hemoglobin 11.8 g/dL (14.0-18.0); MDiff Complete? YES; Mean Corpuscular HGB CONC 30.8 g/dL (32.0-36.0); Mean Corpuscular Hemoglobin 32.6 pg (27.0-31.0); Mean Platelet Volume 9.9 fL (7.4-10.4); Ovalocytes SLIGHT = 2-5 cells (100X) (0-1/hpf); PLT Morphology Comment Appears Decreased; Platelet Count 80 thou/uL (130-400); RBC Distribution Width 16.1 % (11.5-14.5); Red Blood Cell (RBC) Count 3.61 mill/uL (4.70-6.10); White Blood Cell (WBC) Count 8.8 thou/uL (4.8-10.8)
[2017-07-19] MEDS: Furosemide 40 MG/4 ML VIAL SLOW IVP SCH ×2 (06:20→13:29)
[2017-07-19] MEDS: Dextrose 5% in Water 1,000 ML IV SCH (06:20)
[2017-07-19] MEDS: Spironolactone 25 MG TAB PO SCH (07:56)
[2017-07-19] MEDS: Carvedilol 6.25 MG TAB PER TUBE SCH ×2 (08:00→20:09)
[2017-07-19] MEDS: Clopidogrel Bisulfate 75 MG TAB PO SCH (08:00)
[2017-07-19] MEDS: Saccharomyces boulardii 250 MG CAP PER TUBE SCH (08:00)
[2017-07-19] MEDS: Aspirin 81 mg Enteric Coated Tablet PO SCH (08:00)
[2017-07-19] MEDS: Enoxaparin Sodium 30 MG/0.3 ML SYRINGE SC SCH (08:01)
[2017-07-19] MEDS: Sacubitril 24.5 MG/Valsartan 25.5 MG TABLET PO SCH ×2 (09:37→20:10)
[2017-07-19] MEDS: Oseltamivir 6 MG/ML ORAL SUSP PO SCH (09:37)
[2017-07-19] MEDS: Acetaminophen 325 MG TAB PO PRN (12:24)
--- NOTE | 2017-07-19 14:16 | PDOC.PN ---
- Subjective Encounter Start Date: 07/19/17 Encounter Start Time: 11:40 Sitting up, looks a little stronger. no F/c, very weak cough. no N/V/D/C, no CP, still very SOB with HARE not at bedside at present 10 point ROS performed and neg for all systems except as above - Objective Resuscitation Status: Resuscitation Status FULL:Full Resuscitation MAR Reviewed: Yes Vital Signs & Weight: Vital Signs (12 hours) Temp Pulse Pulse Pulse Resp BP BP 07/19/17 12:00 98.0 F 07/19/17 09:20 83 72 120/53 L 07/19/17 09:00 97.9 F 07/19/17 08:00 97.9 F 70 14 115/47 L 07/19/17 06:58 07/19/17 06:54 70 16 07/19/17 04:00 97.9 F BP Pulse Ox Pulse Ox Pulse Ox 07/19/17 12:00 07/19/17 09:20 109/44 L 96 99 07/19/17 09:00 07/19/17 08:00 97 07/19/17 06:58 96 07/19/17 06:54 96 07/19/17 04:00 Weight Admit Weight 197 lb Weight 192 lb 10.944 oz Most Recent Monitor Data Heart Rate from ECG 70 NIBP 131/61 NIBP BP-Mean 70 Respiration from ECG 28 SpO2 98 I&O: 07/18/17 07/19/17 07/20/17 06:59 06:59 06:59 Intake Total 2122 2397 250 Output Total 2150 2175 595 Balance -28 222 -345 Result Diagrams: 07/19/17 03:35 07/19/17 03:35 Additional Labs: Accuchecks 07/19/17 07/18/17 07/18/17 11:36 20:07 16:15 POC Glucose 141 H 239 H 174 H Radiology Reviewed by me: Yes EKG Reviewed by me: Yes Phys Exam - Physical Examination Constitutional: NAD HEENT: PERRLA, moist MMs, sclera anicteric, oral pharynx no lesions Neck: no nodes, no JVD, supple, full ROM coarse bilateral BS, soem upper gurgling, no wheezes, + rhonchi Cardiovascular: RRR, no significant murmur, no rub Gastrointestinal: soft, non-tender, no distention, positive bowel sounds Musculoskeletal: pulses present, edema present Neurological: non-focal, normal sensation, moves all 4 limbs srength 3-4/5 X 4 Lymphatic: no nodes Psychiatric: normal affect, A&O x 3 Deviation from normal: slow Skin: no rash, normal turgor, cap refill <2 seconds Dx/Plan (1) Influenza Code(s): J11.1 - FLU DUE TO UNIDENTIFIED INFLUENZA VIRUS W OTH RESP MANIFEST Status: Acute Comment: on tamiflu. on prophylaxis (2) Bacteremia due to Enterococcus Code(s): R78.81 - BACTEREMIA; B95.2 - ENTEROCOCCUS THE CAUSE OF DISEASES CLASSIFIED ELSEWHERE Status: Acute Comment: 2/2 sets positive. on rocephin - doesn't cover enterococcus, changed to Ampicillin. ? ALFONSO thursday. ID following, will need 4-6 weeks of IV antibiotics if endocarditis diagnosed. May need ot consider adding in Gent for artificial device incolvement, but given history of ASHLEY/CKD would be cautius. Cr continues to improve now (3) Acute and chronic respiratory failure Code(s): J96.20 - ACUTE AND CHR RESP FAILURE, UNSP W HYPOXIA OR HYPERCAPNIA Status: Acute Qualifiers: Respiratory failure complication: hypoxia Qualified Code(s): J96.21 - Acute and chronic respiratory failure with hypoxia (4) Chronic kidney disease, stage 3 Code(s): N18.3 - CHRONIC KIDNEY DISEASE, STAGE 3 (MODERATE) Status: Acute Comment: Cr trendign down. 1.59 yesterday. recheck in AM (5) Chronic systolic heart failure Code(s): I50.22 - CHRONIC SYSTOLIC (CONGESTIVE) HEART FAILURE Status: Chronic (6) Pneumonia, community acquired Code(s): J18.9 - PNEUMONIA, UNSPECIFIED ORGANISM Status: Acute Qualifiers: Lung location: unspecified part of lung - Plan * .
--- NOTE | 2017-07-19 14:53 | PRG ---
DATE OF SERVICE: 07/19/2017 SERVICE: Pulmonary Medicine. INTERVAL HISTORY: The patient is doing fine from a respiratory standpoint. He is breathing comforta enoch on 1 liter nasal cannula. There were no events overnight. He still remains extraordinarily weak and deconditioned. That being said, he has been getting up into a chair and this seems to be cleari ng slowly. PHYSICAL EXAMINATION: VITAL SIGNS: Afebrile, pulse 70, blood pressure is 132/55, respirations 31, saturation 99% on 1 lite r nasal cannula. GENERAL: The patient is awake and alert, no apparent distress. LUNGS: Decent air entry. There is no prolonged expiratory phase, wheezing, rhonchi or crackles. HEART: Normal rate, regular. ABDOMEN: Soft, nontender, nondistended. Bowel sounds are positive. MUSCULOSKELETAL: No cyanosis or clubbing. There is no pitting in the bilateral lower extremities. NEUROLOGIC: Grossly nonfocal. LABORATORY DATA: WBC 8.8, hemoglobin 11.8, platelets 80,000 and stable. INR is 1.3. BUN is 54 and down trending gently. Creatinine has up trended to 1.27. Basic metabolic profile, magnesium and cher sphorus are otherwise unremarkable. Blood cultures are positive for Enterococcus faecalis in 2/2. U rine cultures are positive for multiple species. Repeat blood cultures are negative to date. IMAGING: Possible for probable small mobile vegetation possibly consistent with endocarditis. ASSESSMENT: 1. Acute hypoxic respiratory failure, resolved. 2. Metabolic encephalopathy, resolved. 3. Deconditioning, severe. 4. Bacteremia secondary to Enterococcus. 5. Endocarditis, possible. 6. Urinary tract infection. 7. Severe sepsis, improving. 8. Acute kidney injury, resolved. 9. Influenza B. 10. Left-sided pleural effusion. PLAN: I will continue the free water for an additional 24 hours. If it is looks like the patient's sodium continues to improve, lab to determine whether or not he requires any IV fluids moving forward based on his p.o. intake Pulmonary Critical Care will continue to follow while he remains in this l ocation, but from my perspective, he is stable for transition out of the ICU.
[2017-07-19] MEDS ORDERED: guaiFENesin ER 600 MG TAB PO SCH ×2 (16:30→21:00)
--- NOTE | 2017-07-19 16:59 | PRG ---
DATE OF SERVICE: 07/19/2017 SUBJECTIVE: The patient is more comfortable at rest, cough intermittently, but he is oriented, follo ws commands. No abdominal pain. Suprapubic catheter without problems. OBJECTIVE: VITAL SIGNS: Temperature max 97.9. LABORATORY DATA: White cell count 8.8. ALFONSO is scheduled for tomorrow. ASSESSMENT AND DISCUSSION: Cardiomyopathy with Watchman device, atrial fibrillation, prostate cancer with suprapubic catheter, chronic myelogenous leukemia, Enterococcus faecalis bacteremia, influenza B infection. If the transesophageal echocardiogram does not demonstrate vegetations, then would shi t as bacteremia secondary to the urinary tract process. In that case, the patient could be transitio radha to oral ampicillin for continuation of therapy. On the other hand, if the vegetation has been de monstrated, then obviously he will need therapy for Enterococcal endocarditis. In that case, would a dvise a combination of ampicillin plus Rocephin for 6 weeks.
[2017-07-19] MEDS: Famotidine/PF 20 mg/2ml Vial SLOW IVP SCH (20:10)
[2017-07-20] MEDS: Dextrose 5% in Water 1,000 ML IV SCH (04:47)
[2017-07-20 05:55] LABS: #Eosinphils 0.1 thou/uL (0.0-0.7); #Lymphocytes 0.7 thou/uL (1.20-3.40); #Monocytes 0.7 thou/uL (0.11-0.59); #Neutrophils 7.4 thou/uL (1.40-6.50); %Basophils 0.2 % (0.0-1.0); %Eosinophils 1.7 % (0.0-10.0); %Lymphocytes 8.3 % (21.0-51.0); %Monocytes 7.6 % (0.0-10.0); %Neutrophils 82.3 % (42.0-75.0); Hemoglobin 11.3 g/dL (14.0-18.0); Mean Corpuscular HGB CONC 31.2 g/dL (32.0-36.0); Mean Corpuscular Hemoglobin 32.9 pg (27.0-31.0); Mean Platelet Volume 9.7 fL (7.4-10.4); Platelet Count 81 thou/uL (130-400); RBC Distribution Width 15.9 % (11.5-14.5); Red Blood Cell (RBC) Count 3.44 mill/uL (4.70-6.10); White Blood Cell (WBC) Count 8.9 thou/uL (4.8-10.8)
[2017-07-20 06:10] LABS: Anion Gap 9 mmol/L (10-20); BUN (Urea Nitrogen) 54 mg/dL (8.4-25.7); Calc. Creatinine Clearance 56 mL/min (70-130); Calcium 7.9 mg/dL (7.8-10.44); Carbon Dioxide 31 mmol/L (23-31); Chloride 103 mmol/L (98-107); Estimated GFR-MDRD 55; Glucose 116 mg/dL (83-110); Potassium 4.1 mmol/L (3.5-5.1); Sodium 139 mmol/L (136-145)
[2017-07-20] MEDS: Furosemide 40 MG/4 ML VIAL SLOW IVP SCH (06:12)
[2017-07-20] MEDS: Ampicillin 2 GM, Syringe 5.2 ML in Sterile Water 14.8 ML SLOW IVP SCH ×3 (06:28→18:23)
[2017-07-20] MEDS ORDERED: Sacubitril 24.5 MG/Valsartan 25.5 MG TABLET PO SCH (09:00)
--- NOTE | 2017-07-20 09:27 | ECHO ---
TRANSESOPHAGEAL ECHOCARDIOGRAM: DATE OF PROCEDURE: 07/20/17 INDICATION: 82-year-old gentleman with enterococcal sepsis and mitral regurgitation. DESCRIPTION OF PROCEDURE: The patient was in the ICU.. The patient was sedated by anesthesiology. A transesophageal probe was placed in the distal esophagus and stomach. Echocardiographic images were obtained. The transesophageal probe was removed. IMPRESSION: 1. Severe decrease in left systolic function. 2. Biatrial enlargement. 3. Small masses noted attached to the anterior mitral valve leaflet suggestive of either a ruptured chordae tendineae or a small vegetation. 4. Mild to moderate mitral regurgitation. 5. Mild tricuspid regurgitation. 6. The Watchman device was well positioned with a 0.2 cm leak noted. 7. No vegetations were noted on the pacemaker wires. 8. Atherosclerotic debris in the descending aorta. IMPRESSION: Small mass attached to the anterior mitral valve leaflet suggestive of a ruptured chordae tendineae or a possible small vegetation with mild to moderate mitral regurgitation. [facility]
[2017-07-20] MEDS: Enoxaparin Sodium 30 MG/0.3 ML SYRINGE SC SCH (10:25)
[2017-07-20] MEDS: Spironolactone 25 MG TAB PO SCH (10:26)
--- NOTE | 2017-07-20 10:40 | PRG ---
DATE OF SERVICE: 07/20/2017 This morning he is awake, alert, responsive, he is status post ALFONSO. I am told ALFONSO was negative for v egetation. PHYSICAL EXAMINATION: VITAL SIGNS: Blood pressure 108/41, sats 94, respirations 18. CHEST: Chest reveals bilateral crackles. CARDIAC: Normal S1, S2. LABORATORY DATA: White count 8000, H&H 11 and 36, platelet count is low at 81, BUN and creatinine 54 and 1.25. IMPRESSION: 1. Enterococcus urinary tract infection. More than likely this is colonization from his indwelling Dailey. 2. Adult endocarditis. 3. Influenza on Tamiflu. 4. Abnormal chest x-ray, a large left pleural effusion. PLAN: Continue diuretics, continue neb treatments. May consider a thoracentesis tomorrow. I will follow.
[2017-07-20] MEDS: Carvedilol 6.25 MG TAB PER TUBE SCH ×2 (10:52→20:12)
[2017-07-20] MEDS: Aspirin 81 mg Enteric Coated Tablet PO SCH (10:52)
[2017-07-20] MEDS: Saccharomyces boulardii 250 MG CAP PER TUBE SCH (10:52)
[2017-07-20] MEDS: guaiFENesin ER 600 MG TAB PO SCH ×2 (10:54→20:09)
[2017-07-20] MEDS: Sacubitril 49 MG/Valsartan 51 MG TABLET PO SCH ×2 (10:55→20:11)
[2017-07-20] MEDS: Clopidogrel Bisulfate 75 MG TAB PO SCH (10:55)
--- NOTE | 2017-07-20 11:38 | PDOC.PN ---
- Subjective Encounter Start Date: 07/20/17 Encounter Start Time: 11:33 Subjective: seen and examined still coughing but denies new complaint - Objective Resuscitation Status: Resuscitation Status FULL:Full Resuscitation Vital Signs & Weight: Vital Signs (12 hours) Temp Pulse Resp BP Pulse Ox 07/20/17 10:52 126/58 L 07/20/17 07:53 96.7 F L 70 19 96 07/20/17 07:46 99 07/20/17 07:44 70 19 99 07/20/17 07:00 96.7 F L 07/20/17 04:00 97.6 F 07/19/17 23:54 70 28 H 97 Weight Admit Weight 197 lb Weight 195 lb 12.328 oz Most Recent Monitor Data Heart Rate from ECG 70 NIBP 135/58 NIBP BP-Mean 70 Respiration from ECG 20 SpO2 97 I&O: 07/19/17 07/20/17 07/21/17 06:59 06:59 06:59 Intake Total 2397 1794 Output Total 1581 8 1080 Balance 222 -231 -1080 Result Diagrams: 07/20/17 04:40 07/20/17 04:40 Additional Labs: Accuchecks 07/19/17 07/19/17 07/19/17 20:20 17:17 11:36 POC Glucose 121 H 123 H 141 H Phys Exam - Physical Examination Constitutional: NAD HEENT: PERRLA, moist MMs, sclera anicteric, TM's clear Neck: no nodes, no JVD, supple, full ROM Respiratory: no wheezing Cardiovascular: RRR, no significant murmur, no rub Gastrointestinal: soft, non-tender, no distention, positive bowel sounds Musculoskeletal: pulses present Dx/Plan (1) Acute and chronic respiratory failure Code(s): J96.20 - ACUTE AND CHR RESP FAILURE, UNSP W HYPOXIA OR HYPERCAPNIA Status: Acute Qualifiers: Respiratory failure complication: hypoxia Qualified Code(s): J96.21 - Acute and chronic respiratory failure with hypoxia (2) Bacteremia due to Enterococcus Code(s): R78.81 - BACTEREMIA; B95.2 - ENTEROCOCCUS THE CAUSE OF DISEASES CLASSIFIED ELSEWHERE Status: Acute Comment: 2/2 sets positive. on rocephin - doesn't cover enterococcus, changed to Ampicillin. ? ALFONSO thursday. ID following, will need 4-6 weeks of IV antibiotics if endocarditis diagnosed. May need ot consider adding in Gent for artificial device incolvement, but given history of ASHLEY/CKD would be cautius. Cr continues to improve now (3) Chronic kidney disease, stage 3 Code(s): N18.3 - CHRONIC KIDNEY DISEASE, STAGE 3 (MODERATE) Status: Acute Comment: Cr trendign down. 1.59 yesterday. recheck in AM (4) Influenza Code(s): J11.1 - FLU DUE TO UNIDENTIFIED INFLUENZA VIRUS W OTH RESP MANIFEST Status: Acute Comment: on tamiflu. on prophylaxis (5) Pneumonia, community acquired Code(s): J18.9 - PNEUMONIA, UNSPECIFIED ORGANISM Status: Acute Qualifiers: Lung location: unspecified part of lung (6) Chronic systolic heart failure Code(s): I50.22 - CHRONIC SYSTOLIC (CONGESTIVE) HEART FAILURE Status: Chronic - Plan plan discussed w/ family, continue antibiotics, PT/OT, addiction social worker, respiratory therapy ALFONSO -ve -: Continue diuresis -: Possible thoracentesis tommorrow-defer to pulmonary team * .
[2017-07-20] MEDS: Famotidine 20 MG TAB PO SCH (20:08)
[2017-07-20] MEDS ORDERED: Sodium Chloride 0.9% 10 ML ONE (20:26)
[2017-07-20] MEDS ORDERED: Sacubitril 49 MG/Valsartan 51 MG TABLET PO SCH (21:00)
[2017-07-21] MEDS: Ampicillin 2 GM, Syringe 5.2 ML in Sterile Water 14.8 ML SLOW IVP SCH ×5 (00:29→20:34)
[2017-07-21 06:21] LABS: Anion Gap 12 mmol/L (10-20); BUN (Urea Nitrogen) 59 mg/dL (8.4-25.7); Calc. Creatinine Clearance 55 mL/min (70-130); Calcium 8.2 mg/dL (7.8-10.44); Carbon Dioxide 31 mmol/L (23-31); Chloride 102 mmol/L (98-107); Estimated GFR-MDRD 53; Glucose 79 mg/dL (83-110); Potassium 4.6 mmol/L (3.5-5.1); Sodium 140 mmol/L (136-145)
[2017-07-21] MEDS: Furosemide 40 MG TAB PO SCH (07:47)
[2017-07-21] MEDS: Spironolactone 25 MG TAB PO SCH (07:47)
[2017-07-21] MEDS: Carvedilol 6.25 MG TAB PER TUBE SCH ×2 (07:49→20:34)
[2017-07-21] MEDS: Clopidogrel Bisulfate 75 MG TAB PO SCH (07:50)
[2017-07-21] MEDS: Aspirin 81 mg Enteric Coated Tablet PO SCH (07:51)
[2017-07-21] MEDS: Saccharomyces boulardii 250 MG CAP PER TUBE SCH (07:51)
[2017-07-21] MEDS: Sacubitril 49 MG/Valsartan 51 MG TABLET PO SCH ×2 (07:52→20:34)
[2017-07-21] MEDS: guaiFENesin ER 600 MG TAB PO SCH ×2 (07:52→20:34)
[2017-07-21] MEDS: Enoxaparin Sodium 30 MG/0.3 ML SYRINGE SC SCH (07:54)
--- NOTE | 2017-07-21 08:30 | PRG ---
DATE OF SERVICE: 07/21/2017 This morning he is awake, responsive. Echo transthoracic, ALFONSO, decreased EF, no significant vegetati on. PHYSICAL EXAMINATION. VITAL SIGNS: Pulse 76, blood pressure 135/56, O2 sat 90%, respirations 26. CHEST: Chest revealed decreased breath sounds, no wheezing. CARDIAC: Normal S1-S2. ABDOMEN: Soft, no masses. LABORATORY: Creatinine 1.3. X-ray shows lobular pleural effusion. IMPRESSION: 1. Pleural effusion. 2. Enterococcus septicemia on ampicillin and Cipro. 3. Influenza, on adequate medication. PLAN: Continue PT and supportive care. I will consider a thoracentesis after discussing with the . I will follow.
--- NOTE | 2017-07-21 08:37 | RAD ---
RADIOGRAPH CHEST 1 VIEW: Date: 07-21-17 Time: 4:52 a.m. HISTORY: 82-year-old male in respiratory distress. COMPARISON: 07-17-17 FINDINGS: Right subclavian central line. Left subclavian AICD. Moderate or large left pleural effusion. Consoli dation of left lower lobe. Severe haziness throughout the left upper lobe. Patchy mild airspace densi ties at the right base. No pneumothorax identified. No interval change overall. IMPRESSION: 1. No significant interval change since 07-17-17. 2. This includes moderate or large left pleural effusion and poor aeration of the left lung. LAURA POS: PAUL
[2017-07-21] MEDS ORDERED: Lidocaine 1% (PF) 30 ML VIAL ONE (10:00)
[2017-07-21 12:14] LABS: Fluid, Triglycerides 17 mg/dL (Not Available); Pleural Fluid, Amylase Less than 30 U/L (Not Available); Pleural Fluid, Glucose 103 mg/dL; Pleural Fluid, LDH 120 U/L (Not Available); Pleural Fluid, Protein 1.9 g/dL
--- NOTE | 2017-07-21 12:14 | RAD ---
RADIOGRAPH CHEST 1 VIEW: Date: 07/21/2017 Time: 10:38 a.m. HISTORY: An 82-year-old male status post left thoracentesis for left pleural effusion. COMPARISON: 07/21/2017 FINDINGS: The left pleural effusion has become much smaller and is currently not visible on this single frontal view, although the left base has been excluded from the field of view now. There is no evidence of pneumothorax. The decrease in pleural effusion has resulted in much better aeration of the entire le ft lung. The left upper lobe is no longer hazy. The consolidation of the retrocardiac left lower lo be has significantly improved, indicating that it was atelectasis. The mild air space density at the right lower lung zone is unchanged. There is pulmonary vascular engorgement. There is cardiomegaly . The right subclavian central line and the left subclavian AICD remain. There are mildly displaced fractures of the posterolateral aspects of the left fourth, fifth, and sixth ribs, without visible c allus. These were present as far back as 07/14/2017. They were not present on the CT angiogram of t he chest of 01/13/2017. IMPRESSION: 1. Interval significant decrease in volume of left pleural effusion following left thoracentesis. 2. Significant interval improvement in aeration of the left lung following the left thoracentesis. 3. No pneumothorax. 4. Multiple subacute, traumatic, displaced left posterior rib fractures. 5. Mild congestive heart failure. 6. Nonspecific air space densities in the right lower lung zone, unchanged. LAURA [] POS: PAUL
[2017-07-21 13:05] LABS: BF Color Red; Body Fluid Source THORACENTESIS FLD; Clarity Hazy (Clear); Tube # EDTA; WBC Background Count 0.01
[2017-07-21 13:06] LABS: RBC Background Count 0.013; RBC Count-Automated 11000 /cumm
[2017-07-21 13:13] LABS: BF WBC/Nonhematics Ct. - Manua 4.44 /cumm
--- NOTE | 2017-07-21 14:18 | OP ---
PROCEDURE: Thoracentesis. INDICATION: Pleural effusion. PROCEDURE IN DETAIL: After informed consent, the left posterior thorax was cleaned with chlorhexidin e, 1% lidocaine was infiltrated until the left ninth intercostal space and pleural cavity entered and initially was 20 mL of sanguineous fluid. Thereafter, using an 8-Brazilian catheter, a total of 1900 m L of bloody effusion removed without difficulty. Fluid was sent for appropriate studies including cu lture and cytology. The patient tolerated the procedure well.
--- NOTE | 2017-07-21 14:40 | PRG ---
DATE OF SERVICE: 07/21/2017 The patient is a little bit confused today, does not appear in distress. No chest pain, no abdominal pain. Still with an indwelling Dailey, does not appear in distress. PHYSICAL EXAMINATION: LUNGS: Symmetric air entry with a few crackles at the bases. CARDIAC: A soft aortic murmur. Regular rate. EXTREMITIES: Moves extremities. NEURO: A bit confused, some delusional thinking process. LABORATORY: White cell count 8.9, hemoglobin 11, platelets 81,000. Creatinine 1.3, GFR 53. Repeat blood cultures negative thus far from 07/18/2017. ALFONSO with evidence of mitral valve masses, possibl e vegetations. ASSESSMENT AND DISCUSSION: Cardiomyopathy. Watchman device, atrial fibrillation with prostate cance r with suprapubic catheter, CML, E. faecalis bacteremia and influenza B infection. In view of the fi ndings on ALFONSO will write for a PICC line placement and treat for 6 weeks with Rocephin and ampicillin . Disposition will probably require transfer to a fpc unit.
[2017-07-21] MEDS: cefTRIAXone\\ROCEPHIN 2 GM in Sodium Chloride 0.9% 100 ML IVPB SCH (14:42)
--- NOTE | 2017-07-21 15:22 | PQF ---
CLINICAL DOCUMENTATION IMPROVEMENT CLARIFICATION FORM: ICD-10 Updated PLEASE DO AN ADDENDUM TO THE PROGRESS NOTE WITH ANY DOCUMENTATION UPDATES OR ADDITIONS AND CARRY THROUGH TO DC SUMMARY. THANK YOU. DATE: 07/21/17 ATTN: Dr. Caban Please exercise your independent, professional judgment in responding to the clarification form. Clinical indicators are provided on the bottom of this form for your review Please check appropriate box(s): [ ] UTI please specify if due to or related to (as applicable): [ ] Suprapubic catheter [ ] Unable to determine etiology [ ] Other diagnosis [ ] Unable to determine In addition, please specify: Present on Admission (POA): [ ] Yes [ ] No [ ] Unable to determine For continuity of documentation, please document condition throughout progress notes and discharge summary. Thank You. CLINICAL INDICATORS - SIGNS / SYMPTOMS / LABS UROLOGY CONSULT 07/16: THE PT HAS ENTEROCOCCUS IN HIS BLOOD & THIS HAS ALSO BEEN ISOLATED FROM HIS INDWELLING SUPRAPUBIC TUBE, WHICH WAS PLACED OUTSIDE OF THE HOSPITAL. PT LIKELY HAS AN ENTEROCOCCUS SEPSIS, I THINK THIS IS PROBABLY FROM A URINARY ORIGIN BASED ON PT'S 'S ORAL HX OF SEVERAL DAYS OF OBSTRUCTION OF THE SUPRAPUBIC TUBE. RISKS: UROLOGY CONSULT: URINARY RETENTION 2/2 PROSTATE CANCER W/ CHRONIC SUPRAPUBIC TUBE. TREATMENT: UROLOGY CONSULT: PERFORM STERILE CHANGE OF THE PATIENT'S SUPRAPUBIC TUBE. SUPRAPUBIC TUBE MANAGEMENT. RECOMMENDING SUPRAPUBIC TUBE BE CHANGED ON A WEEKLY BASIS CPOE 07/21: ROCEPHIN 2 GM IV 1400 Thank you, Luda (This form is maintained as a part of the permanent medical record) 2015 [employer]. All Rights Reserved Luda Muhammad, RN, BSN [email or web address] Office: [phone] [facility]
[2017-07-21] MEDS ORDERED: Ampicillin 2 GM in Sodium Chloride 0.9% 100 ML IVPB SCH (17:00)
[2017-07-21] MEDS: Acetaminophen 325 MG TAB PO PRN (17:22)
[2017-07-21] MEDS: Famotidine 20 MG TAB PO SCH (20:35)
--- NOTE | 2017-07-22 00:12 | PDOC.PN ---
- Subjective Encounter Start Date: 07/21/17 Encounter Start Time: 16:30 Patient seen and examined. No new complaints. No overnight events. Sitting on chair. - Objective Resuscitation Status: Resuscitation Status FULL:Full Resuscitation MAR Reviewed: Yes Vital Signs & Weight: Vital Signs (12 hours) Temp Pulse Resp BP Pulse Ox 07/21/17 20:34 122/66 07/21/17 20:00 97.7 F 70 20 94 L 07/21/17 18:38 70 27 H 98 07/21/17 16:00 97.6 F 07/21/17 13:14 70 20 99 Weight Admit Weight 197 lb Weight 197 lb 12.074 oz Most Recent Monitor Data Heart Rate from ECG 70 NIBP 130/65 NIBP BP-Mean 75 Respiration from ECG 24 SpO2 96 I&O: 07/20/17 07/21/17 07/22/17 06:59 06:59 06:59 Intake Total 1794 1466 1900 Output Total 2814 3827 3048 [facility] -231 -1229 -725 Result Diagrams: 07/20/17 04:40 07/21/17 05:30 Additional Labs: Accuchecks 07/21/17 07/21/17 07/21/17 20:34 16:28 11:25 POC Glucose 141 H 122 H 102 07/21/17 05:38 POC Glucose 80 EKG Reviewed by me: Yes Phys Exam - Physical Examination Constitutional: NAD Respiratory: no wheezing, no rhonchi Scat rales at base Cardiovascular: RRR, no rub Gastrointestinal: soft, non-tender, positive bowel sounds Dx/Plan - Plan DVT proph w/SCDs IMPRESSION: 1. E fecalis Endocardiitis/bacteremia - On Ampicillin/Ceftriaxone per ID 2. Acute hypoxic/hypercapnic resp failure 3. Catheter associated UTI 4. Acute Influenza B infection 5. HCAP 6. CKD 3 / Other issues per H&P PLAN: * PICC line in AM * Critical care/ID following * Cont ACEI/BB * Cont to monitor * AM labs Review of Systems - Review of Systems Respiratory: negative: Cough, Dry, Shortness of Breath, Hemoptysis, SOB with Excertion, Pleuritic Pain, Sputum, Wheezing Gastrointestinal: negative: Nausea, Vomiting, Abdominal Pain, Diarrhea, Constipation, Melena, Hematochezia - Medications/Allergies Allergies/Adverse Reactions: Allergies Allergy/AdvReac Type Severity Reaction Status Date / Time No Known Allergies Allergy Verified 07/15/17 00:57 Medications: Current Medications Acetaminophen (Tylenol) 650 mg PO Q4H PRN PRN Reason: Headache/Fever or Pain Last Admin: 07/21/17 17:22 Dose: 650 mg Acetaminophen (Tylenol Elixir) 650 mg PO Q4H PRN PRN Reason: pain/fever Last Admin: 07/16/17 15:49 Dose: 650 mg Albuterol/Ipratropium (Duoneb) 3 ml NEB [id number] [facility] Last Admin: 07/21/17 18:38 Dose: 3 ml Aspirin (Ecotrin) 81 mg PO DAILY [facility] Last Admin: 07/21/17 07:51 Dose: 81 mg Bisacodyl (Dulcolax) 10 mg W[place] Q24H PRN PRN Reason: Constipation Carvedilol (Coreg) 6.25 mg PER TUBE BID [facility] Last Admin: 07/21/17 20:34 Dose: 6.25 mg Clopidogrel Bisulfate (Plavix) 75 mg PO QAM [facility] Last Admin: 07/21/17 07:50 Dose: 75 mg Dextrose/Water (Dextrose 50%) 25 gm IVP PRN PRN PRN Reason: HYPOGLYCEMIA PROTOCOL Famotidine (Pepcid) 20 mg PO 2100 [facility] Last Admin: 07/21/17 20:35 Dose: 20 mg Furosemide (Lasix) 40 mg PO DAILY-AC [facility] Last Admin: 07/21/17 07:47 Dose: 40 mg Glucagon (Glucagon) 1 mg IM PRN PRN PRN Reason: HYPOGLYCEMIA PROTOCOL Guaifenesin (Mucinex) 1,200 mg PO Q12HR [facility] Last Admin: 07/21/17 20:34 Dose: 1,200 mg Dextrose/Water (D5w) 1,000 mls @ 0 mls/hr IV INF PRN; As Directed PRN Reason: HYPOGLYCEMIA PROTOCOL Ceftriaxone Sodium 2 gm/ (Sodium Chloride) 100 mls @ 200 mls/hr IVPB 1400 [facility] Last Admin: 07/21/17 14:42 Dose: 100 mls Ampicillin Sodium 2 gm/ (Syringe 5.2 ml/ Sterile Water) 20 mls @ 60 mls/hr SLOW IVP Q4HR [facility] Last Admin: 07/21/17 20:34 Dose: 20 mls Insulin Human Regular (Humulin R) 0 units SC .MILD SLIDING PRN; Protocol PRN Reason: MILD SLIDING SCALE Last Admin: 07/18/17 20:57 Dose: 3 unit Lactulose (Lactulose) 20 gm PO DAILYPRN PRN PRN Reason: Constipation Mineral Oil/White Petrolatum (Lacri-Lube Ointment) 0 gm EA EYE PRN PRN PRN Reason: Dry Eyes Miscellaneous Medication (Pharmacy To Dose) 1 each IVPB ONE PRN PRN Reason: Pharmacy to dose Stop: 08/13/17 20:57 Nitroglycerin (Nitrostat) 0.4 mg PO Q5MIN PRN PRN Reason: Chest Pain Ondansetron HCl (Zofran Odt) 4 mg PO Q6H PRN PRN Reason: Nausea/Vomiting Ondansetron HCl (Zofran) 4 mg IVP Q6H PRN PRN Reason: Nausea/Vomiting Saccharomyces Boulardii (Florastor) 250 mg PER TUBE DAILY [facility] Last Admin: 07/21/17 07:51 Dose: 250 mg Sacubitril/Valsartan (Entresto 49 Mg-51 Mg Tablet) 1 tab PO BID [facility] Last Admin: 07/21/17 20:34 Dose: 1 tab Sodium Chloride (Flush - Normal Saline) 10 ml IVF PRN PRN PRN Reason: Saline Flush Spironolactone (Aldactone) 25 mg PO QA[facility] Last Admin: 07/21/17 07:47 Dose: 25 mg
[2017-07-22] MEDS: Ampicillin 2 GM, Syringe 5.2 ML in Sterile Water 14.8 ML SLOW IVP SCH ×6 (02:02→21:06)
[2017-07-22 05:03] LABS: #Lymphocytes 0.4 thou/uL (1.20-3.40); #Monocytes 0.5 thou/uL (0.11-0.59); #Neutrophils 6.6 thou/uL (1.40-6.50); %Basophils 0.3 % (0.0-1.0); %Eosinophils 0.4 % (0.0-10.0); %Lymphocytes 5.6 % (21.0-51.0); %Monocytes 6.7 % (0.0-10.0); %Neutrophils 87.1 % (42.0-75.0); Hemoglobin 11.4 g/dL (14.0-18.0); Mean Corpuscular HGB CONC 31.5 g/dL (32.0-36.0); Mean Platelet Volume 9.3 fL (7.4-10.4); Platelet Count 93 thou/uL (130-400); RBC Distribution Width 15.7 % (11.5-14.5); Red Blood Cell (RBC) Count 3.44 mill/uL (4.70-6.10); White Blood Cell (WBC) Count 7.5 thou/uL (4.8-10.8)
[2017-07-22 05:19] LABS: Anion Gap 11 mmol/L (10-20); BUN (Urea Nitrogen) 63 mg/dL (8.4-25.7); Calc. Creatinine Clearance 55 mL/min (70-130); Calcium 8.5 mg/dL (7.8-10.44); Carbon Dioxide 31 mmol/L (23-31); Chloride 104 mmol/L (98-107); Estimated GFR-MDRD 52; Glucose 91 mg/dL (83-110); Magnesium 1.9 mg/dL (1.6-2.6); Potassium 4.4 mmol/L (3.5-5.1); Sodium 142 mmol/L (136-145)
[2017-07-22] MEDS: Furosemide 40 MG TAB PO SCH (07:55)
[2017-07-22] MEDS: Spironolactone 25 MG TAB PO SCH (07:56)
[2017-07-22] MEDS: Saccharomyces boulardii 250 MG CAP PER TUBE SCH (08:04)
[2017-07-22] MEDS ORDERED: Carvedilol 6.25 MG TAB PER TUBE SCH (08:38)
[2017-07-22] MEDS: guaiFENesin ER 600 MG TAB PO SCH ×2 (09:19→20:05)
[2017-07-22] MEDS: Aspirin 81 mg Enteric Coated Tablet PO SCH (09:19)
[2017-07-22] MEDS: Clopidogrel Bisulfate 75 MG TAB PO SCH (09:20)
[2017-07-22] MEDS: Carvedilol 6.25 MG TAB PER TUBE SCH ×2 (09:20→20:05)
[2017-07-22] MEDS: Sacubitril 49 MG/Valsartan 51 MG TABLET PO SCH ×2 (09:21→20:05)
[2017-07-22] MEDS: Enoxaparin Sodium 40 MG/0.4 ML SYRINGE SC SCH (09:24)
--- NOTE | 2017-07-22 09:27 | PRG ---
DATE OF SERVICE: 07/22/2017 This morning he is awake, alert, responsive. He has got severe hip and knee pain on the left side. PHYSICAL EXAMINATION: VITAL SIGNS: Blood pressure is 130/62, O2 sat 93% on room air, respirations 18. I's and O's have be en 1466 in, 2697 out. CHEST: Chest reveals decreased breath sounds, no wheezing. CARDIAC: Normal S1, S2, no gallops. White count 7000, H&H 11 and 36, platelet count is low at 93. His creatinine is 1.7, BUN 63. IMPRESSION: 1. Respiratory failure. 2. Congestive heart failure. 3. Left pleural effusion, traumatic multiple rib fractures. 4. Severe arthritis. 5. Sepsis. PLAN: Antibiotics per Infectious Disease. Pleural fluid was a bloody transudate. Probably slow tho k from multiple rib fractures. Orthopedics will consult for severe pain. At this stage, continue PT and supportive care. Hopefully, can transfer out of the ICU. He still thrombocytopenic. He is still azotemic. We will follow.
[2017-07-22] MEDS ORDERED: Acetaminophen/Codeine 30-300mg Tablet PO PRN (11:35)
--- NOTE | 2017-07-22 11:38 | PDOC.PN ---
- Subjective Encounter Start Date: 07/22/17 Encounter Start Time: 10:45 -: old records requested/rev Pt seen and examined chart reviewed in its entirety. This is my first visit with this patient in several days Pt seen by Dr Pelayo, committed to 4-6 weeks of IV amp and Rocpehin. PICC to be placed today. Pt complaining of LLE pain, no increased edema, no discoloration, requestion tylenol 3. no F/C, no n/v/D/C, no CP, breathing is okay Pt feels weak. not much PT last few days due to procedures 10 point ROS performed and neg for all systems except as per HPI - Objective Resuscitation Status: Resuscitation Status FULL:Full Resuscitation MAR Reviewed: Yes Vital Signs & Weight: Vital Signs (12 hours) Temp Pulse Resp BP Pulse Ox 07/22/17 09:20 127/55 L 07/22/17 07:44 97.8 F 70 21 H 99 07/22/17 07:08 98 07/22/17 07:00 97.8 F 07/22/17 04:00 97.7 F 07/22/17 00:24 70 22 H 92 L 07/22/17 00:00 97.8 F 95 Weight Admit Weight 197 lb Weight 187 lb 13.341 oz Most Recent Monitor Data Heart Rate from ECG 71 NIBP 130/62 NIBP BP-Mean 71 Respiration from ECG 19 SpO2 100 I&O: 07/21/17 07/22/17 07/23/17 06:59 06:59 06:59 Intake Total 1466 2020 350 Output Total 2695 3095 215 Balance -1229 -1075 135 Result Diagrams: 07/22/17 04:45 07/22/17 04:45 Additional Labs: Accuchecks 07/22/17 07/22/17 07/21/17 10:41 04:49 20:34 POC Glucose 91 89 141 H 07/21/17 07/21/17 16:28 11:25 POC Glucose 122 H 102 Radiology Reviewed by me: Yes EKG Reviewed by me: Yes Phys Exam - Physical Examination Constitutional: NAD HEENT: PERRLA, moist MMs, sclera anicteric, oral pharynx no lesions Neck: no nodes, no JVD, supple, full ROM Respiratory: no wheezing, no rales, no rhonchi, clear to auscultation bilateral Cardiovascular: RRR, no significant murmur, no rub Gastrointestinal: soft, non-tender, no distention, positive bowel sounds Musculoskeletal: edema present Neurological: non-focal, normal sensation, moves all 4 limbs 3/5 strength x 4 Lymphatic: no nodes Psychiatric: normal affect, A&O x 3 Skin: no rash, normal turgor, cap refill <2 seconds Dx/Plan (1) Influenza Code(s): J11.1 - FLU DUE TO UNIDENTIFIED INFLUENZA VIRUS W OTH RESP MANIFEST Status: Resolved Comment: treated with tamiflu. on prophylaxis. completed course. 8 days post diagnosis, can D/c isolation (2) Bacteremia due to Enterococcus Code(s): R78.81 - BACTEREMIA; B95.2 - ENTEROCOCCUS THE CAUSE OF DISEASES CLASSIFIED ELSEWHERE Status: Acute Comment: 2/2 sets positive. on rocephin - doesn't cover enterococcus, changed to Ampicillin. ? ALFONSO thursday. ID following, will need 4-6 weeks of IV antibiotics. May need ot consider adding in Gent for artificial device incolvement, but given history of ASHLEY/CKD would be cautius. Cr continues to improve now (3) Acute and chronic respiratory failure Code(s): J96.20 - ACUTE AND CHR RESP FAILURE, UNSP W HYPOXIA OR HYPERCAPNIA Status: Acute Qualifiers: Respiratory failure complication: hypoxia Qualified Code(s): J96.21 - Acute and chronic respiratory failure with hypoxia (4) Chronic kidney disease, stage 3 Code(s): N18.3 - CHRONIC KIDNEY DISEASE, STAGE 3 (MODERATE) Status: Acute Comment: Cr trending down. 1.3X today. recheck in AM (5) Chronic systolic heart failure Code(s): I50.22 - CHRONIC SYSTOLIC (CONGESTIVE) HEART FAILURE Status: Chronic (6) Pneumonia, community acquired Code(s): J18.9 - PNEUMONIA, UNSPECIFIED ORGANISM Status: Acute Qualifiers: Lung location: unspecified part of lung - Plan cont current plan of care, plan discussed w/ family, continue antibiotics, PT/OT , respiratory therapy, out of bed/ambulate, DVT proph w/lovenox * .
[2017-07-22] MEDS: Acetaminophen/Codeine 30-300mg Tablet PO PRN ×3 (12:39→21:28)
[2017-07-22] MEDS: cefTRIAXone\\ROCEPHIN 2 GM in Sodium Chloride 0.9% 100 ML IVPB SCH (13:14)
--- NOTE | 2017-07-22 14:01 | PQF ---
CLINICAL DOCUMENTATION IMPROVEMENT CLARIFICATION FORM: ICD-10 Updated PLEASE DO AN ADDENDUM TO THE PROGRESS NOTE WITH ANY DOCUMENTATION UPDATES OR ADDITIONS AND CARRY THROUGH TO DC SUMMARY. THANK YOU. DATE: 07/22/17 / 07/23/17 ATTN: Dr. Owen/ 07/27/17, Dr. Chaves Please exercise your independent, professional judgment in responding to the clarification form. Clinical indicators are provided on the bottom of this form for your review Please check appropriate box(es): [ ] Sepsis due to Catheter associated UTI. [ ] Sepsis due to AICD Device. [ ] Sepsis due to other : [ x ] Severe sepsis with acute organ dysfunction of: _Resp Failure (Examples: respiratory failure, encephalopathy, acute kidney failure, other) [ ] Other diagnosis [ ] Unable to determine In addition, please specify: Present on Admission (POA): [ x ] Yes [ ] No [ ] Unable to determine For continuity of documentation, please document condition throughout progress notes and discharge summary. Thank You. CLINICAL INDICATORS - SIGNS / SYMPTOMS / LAB PN 2: PT HAS BEEN FOUND TO HAVE ENTEROCOCCUS SEPSIS & POSSIBLE VEGETATION ON ONE OF HIS HEART VALVES. ID CONSULT 07/16: MICROBIOLOGY SHOWED ENTEROCOCCUS FAECALIS IN 2/2 SETS OF BLOOD CULTURES. URINE CULTURE HAD GRAM NEGATIVE VERA & GRAM POSITIVE COCCI & ENTEROCOCCUS SPECIES IDENTIFIED. ENTEROCOCCUS FAECALIS BACTEREMIA ID PN 07/21: ALFONSO W/ EVIDENCE OF MITRAL VALVE MASSES, POSSIBLE VEGETATIONS. RISKS: H&P: CHRONIC SYSTOLIC HEART FAILURE S/P AICD. UPGRADED TO BIVENTRICULAR ICD IN 01/2017. PROSTATIC ENLARGEMENT W/ URINARY RETENTION, S/P SUPRAPUBIC CATHETER. CHRONIC A FIB, S/P WATCHMAN DEVICE. PN 2: E FAECALIS ENDOCARDIITS/ BACTEREMIA. CATHETER ASSOCIATED UTI TREATMENT: ID PN 07/21: WRITE FOR A PICC LINE PLACEMENT & TREAT FOR 6 WEEKS W/ ROCEPHIN & AMPICILLIN. Thank you, Luda (This form is maintained as a part of the permanent medical record) 2014 [employer]. All Rights Reserved Luda Muhammad, [email or web address] Office: [phone] RANDA
--- NOTE | 2017-07-22 14:14 | CON ---
DATE OF CONSULTATION: 07/22/2017 REQUESTING PHYSICIAN: Dr. Owens. CONSULTING PHYSICIAN: Dr. Gerald Coto REASON FOR CONSULTATION: Left hip and left knee pain. BRIEF CLINICAL HISTORY: This is an 82-year-old male admitted to the ICU 8 days ago for Enterococcus bacteremia. The patient reports worsening left knee and left hip pain. Our service has been consult ed for suspicious concern for pyogenic arthritis. A brief review of medical records shows that the colton geiger was seen and treated as an outpatient by Dr. Viera for both hip and knee osteoarthritis. X-r ays were done in clinic last August which showed degenerative changes. The patient and his repor t today that he last received steroid injections into his knees in December of last year. PHYSICAL EXAMINATION: VITAL SIGNS: Stable. The patient is afebrile. GENERAL: The patient is awake and alert. He converses appropriately and cooperative with exam findi ngs. EXTREMITIES: Bilateral lower extremities with active range of motion. Straight leg raise negative b ilaterally. No extensor lag. No joint effusions. Normal ligamentous exam findings. Knee is not te nse. No guarding on exam. Distal neurovascular status is intact. SKIN: Appropriate for age with reverse appearance. X-rays taken in the clinic on 09/03/2016 including an AP pelvis as well as 4 views of right and left knees including AP bilateral standing view show advanced tricompartmental osteoarthritis in both knee s with collapse of joint space medially. There is evidence for subchondral sclerosis and periarticul ar osteophytes. There appears to be small joint effusions present bilaterally on lateral films. The re is periarticular osteophytes also visible on the sunrise view. Mild osteoarthritic findings on th e AP pelvis. ASSESSMENT AND PLAN: Enterococcus bacteremia with left hip and left knee pain. Likely secondary to osteoarthritis flare. Low suspicion for septic arthritis at this time. We agree with current pain c ontrol with codeine. The patient may weightbear as tolerated. He may continue to work with physical therapy. We will update plain films with new pelvis and knee films. We will reexamine in the next 24 hours.
[2017-07-22] MEDS ORDERED: Heparin 1,000 UNITS/ML VIAL ONE (16:02)
--- NOTE | 2017-07-22 16:07 | RAD ---
LEFT KNEE TWO VIEWS: History: Knee pain. Comparison: None. FINDINGS: There is flattening of the medial compartment with subchondral cyst formation, erosions and osteophyt es. Small osteophytes in the lateral patellofemoral compartments. No significant joint effusion. IMPRESSION: Severe medial compartment degenerative disease. No displaced fracture. POS: OFF
--- NOTE | 2017-07-22 16:09 | RAD ---
RIGHT KNEE TWO VIEWS: History: Pain. Comparison: None. FINDINGS: There is a large joint effusion. There is a fracture of the medial tibial plateau along the medial ri m. There is subchondral cyst formation in the medial compartment. Small osteophytes in the lateral compartment. IMPRESSION: Findings indicating a medial tibial rim intraarticular fracture with large joint effusion. POS: OFF
--- NOTE | 2017-07-22 16:11 | RAD ---
AP PELVIS: History: Hip pain. Comparison: None. FINDINGS: There is an abnormal lucency of the intertrochanteric portion of the left femur. Obturator rings appe ar to be intact. SI joints appear fused. IMPRESSION: Abnormal lucency intertrochanteric portion left femur. Left hip radiographs recommended. POS: OFF
--- NOTE | 2017-07-22 16:22 | SPC ---
RIGHT UPPER EXTREMITY PICC LINE ULTRASOUND AND FLUOROSCOPIC GUIDANCE: PROCEDURE: After informed consent had been obtained, the patient was placed on the interventional suite table in a supine position. The right arm was prepped and draped in a standard sterile fashion. Topical ane sthesia was achieved utilizing 1% Lidocaine and sodium bicarbonate. Under real-time sonography, the brachial vein of the right upper extremity was accessed with a small caliber needle with venous flash present at the needle hub. A guidewire was then advanced in to the needle, and under real-time fluo roscopy, the guidewire was advanced to the level of the inferior vena cava to confirm appropriate carlos ous placement. A small skin incision was made and the needle was removed. Over the guidewire, a lizeth ble lumen PICC line was cut to 38 cm. The PICC line was advanced under real-time fluoroscopy over th e guidewire to the level of the cavoatrial junction. The guidewire and peelaway sheath were then rem kirstin. PICC line flushed and aspirated appropriately and was secured to the right upper extremity. T here were no procedural complications. Incidental note of bilateral pulmonary parenchymal opacities incompletely assessed. Recommend continu ed chest radiographic follow up. IMPRESSION: Technically successful ultrasound and fluoroscopic-guided right PICC line placement, as above. POS: PAUL
[2017-07-22] MEDS: Famotidine 20 MG TAB PO SCH (20:04)
[2017-07-22] MEDS: Insulin Regular 300 UNITS/3 ML VIAL SC PRN (20:06)
[2017-07-23] MEDS: Ampicillin 2 GM, Syringe 5.2 ML in Sterile Water 14.8 ML SLOW IVP SCH ×6 (01:02→21:08)
[2017-07-23 04:58] LABS: #Eosinphils 0.1 thou/uL (0.0-0.7); #Lymphocytes 0.5 thou/uL (1.20-3.40); #Monocytes 0.5 thou/uL (0.11-0.59); #Neutrophils 4.9 thou/uL (1.40-6.50); %Basophils 0.4 % (0.0-1.0); %Lymphocytes 7.8 % (21.0-51.0); %Monocytes 7.9 % (0.0-10.0); %Neutrophils 82.9 % (42.0-75.0); Hemoglobin 11.4 g/dL (14.0-18.0); Mean Corpuscular HGB CONC 30.9 g/dL (32.0-36.0); Mean Corpuscular Hemoglobin 32.5 pg (27.0-31.0); Mean Platelet Volume 9.8 fL (7.4-10.4); Platelet Count 97 thou/uL (130-400); RBC Distribution Width 15.7 % (11.5-14.5); Red Blood Cell (RBC) Count 3.51 mill/uL (4.70-6.10); White Blood Cell (WBC) Count 5.9 thou/uL (4.8-10.8)
[2017-07-23 05:07] LABS: Anion Gap 14 mmol/L (10-20); BUN (Urea Nitrogen) 64 mg/dL (8.4-25.7); Calc. Creatinine Clearance 48 mL/min (70-130); Calcium 8.5 mg/dL (7.8-10.44); Carbon Dioxide 30 mmol/L (23-31); Chloride 103 mmol/L (98-107); Estimated GFR-MDRD 47; Glucose 114 mg/dL (83-110); Potassium 4.7 mmol/L (3.5-5.1); Sodium 142 mmol/L (136-145)
[2017-07-23] MEDS: Spironolactone 25 MG TAB PO SCH (08:02)
[2017-07-23] MEDS: Furosemide 40 MG TAB PO SCH (08:02)
--- NOTE | 2017-07-23 08:45 | PRG ---
DATE OF SERVICE: 07/23/2017 He is awake, alert, responsive. PHYSICAL EXAMINATION: VITAL SIGNS: Blood pressure 130/62, O2 sat 100% on room air, pulse 70, respirations 26. I's and O's 202 in, 3035 out. CHEST: Chest revealed decreased breath sounds with bilateral crackles. CARDIAC: Normal S1-S2. ABDOMEN: Soft. No masses. X-ray; cardiomegaly, small left pleural effusion. Creatinine 1.4, BUN 64, white count 5000, H&H 9 an d 36. IMPRESSION: 1. Status post thoracentesis with multiple rib fractures on the left side. 2. Congestive heart failure. 3. Cardiomyopathy, ejection fraction 20%. 4. Urinary tract infection sepsis, Enterococcus. PLAN: Antibiotic Ampicillin, ceftriaxone as per Infectious Disease. PT, nutrition and supportive ca re and diuretics. He can be transferred out of the ICU.
--- NOTE | 2017-07-23 09:07 | RAD ---
PORTABLE AP CHEST: Date: 07/23/17 HISTORY: CHF. Follow-up evaluation. COMPARISON: 07/21/17. FINDINGS: A right-sided PICC line is now noted in place of the previously seen right subclavian central venous catheter. Tip overlies the expected location of the proximal SVC. A dual lead left subclavian cardiac pacemaking device remains in place. Cardiac silhouette is magnified by projection. Pulmonary vascula ture is at the upper limits of normal. Left-sided rib fractures are again seen with suggestion of a t iny left pleural effusion. Again noted are increased interstitial densities at the right lung base wh ich could be related to volume loss or pneumonitis. Given differences in technique, there has been no significant interval change compared to the prior exam. IMPRESSION: 1. Overall stable chest. There is probable tiny left pleural effusion with atelectasis versus pneumo nitis at the right lung base. 2. Left-sided rib fractures. POS: OFF
[2017-07-23] MEDS: Sacubitril 49 MG/Valsartan 51 MG TABLET PO SCH ×2 (09:38→21:11)
[2017-07-23] MEDS: guaiFENesin ER 600 MG TAB PO SCH ×2 (09:39→21:09)
[2017-07-23] MEDS: Saccharomyces boulardii 250 MG CAP PER TUBE SCH (09:40)
[2017-07-23] MEDS: Clopidogrel Bisulfate 75 MG TAB PO SCH (09:40)
[2017-07-23] MEDS: Aspirin 81 mg Enteric Coated Tablet PO SCH (09:41)
[2017-07-23] MEDS: Carvedilol 6.25 MG TAB PER TUBE SCH ×2 (09:42→21:09)
[2017-07-23] MEDS: Enoxaparin Sodium 40 MG/0.4 ML SYRINGE SC SCH (09:42)
[2017-07-23] MEDS: Acetaminophen/Codeine 30-300mg Tablet PO PRN ×3 (10:46→19:23)
--- NOTE | 2017-07-23 12:25 | PDOC.PN ---
- Subjective Encounter Start Date: 07/23/17 Encounter Start Time: 10:40 Pt sleeping, but arousable. PICC placed later yesterday, no PT. No F/c, no n/V/D/C, no CP. SOB stable. weak cough, nonproductive 10 point ROS performed and neg for all systems except as per HPI - Objective Resuscitation Status: Resuscitation Status FULL:Full Resuscitation MAR Reviewed: Yes Vital Signs & Weight: Vital Signs (12 hours) Temp Pulse Resp BP Pulse Ox 07/23/17 12:00 97.5 F L 07/23/17 09:42 147/79 H 07/23/17 08:00 98.5 F 70 16 100 07/23/17 06:55 92 L 07/23/17 04:00 98.2 F Weight Admit Weight 197 lb Weight 186 lb 1.122 oz Most Recent Monitor Data Heart Rate from ECG 78 NIBP 127/59 NIBP BP-Mean 107 Respiration from ECG 22 SpO2 100 I&O: 07/22/17 07/23/17 07/24/17 06:59 06:59 06:59 Intake Total 2019 1160 200 Output Total 3095 1255 200 Balance -1075 -95 0 Result Diagrams: 07/23/17 04:35 07/23/17 04:35 Additional Labs: Accuchecks 07/23/17 07/22/17 07/22/17 12:03 19:56 17:04 POC Glucose 125 H 155 H 110 EKG Reviewed by me: Yes Phys Exam - Physical Examination Constitutional: NAD HEENT: PERRLA, moist MMs, sclera anicteric, oral pharynx no lesions Neck: no nodes, no JVD, supple, full ROM Respiratory: no wheezing, no rhonchi poor air movememnt, bibasilar crackles Cardiovascular: RRR, no significant murmur, no rub Gastrointestinal: soft, non-tender, no distention, positive bowel sounds Musculoskeletal: pulses present, edema present Neurological: non-focal, normal sensation, moves all 4 limbs Lymphatic: no nodes Psychiatric: normal affect, A&O x 3 Skin: no rash, normal turgor, cap refill <2 seconds Dx/Plan (1) Influenza Code(s): J11.1 - FLU DUE TO UNIDENTIFIED INFLUENZA VIRUS W OTH RESP MANIFEST Status: Resolved Comment: treated with tamiflu. on prophylaxis. completed course. 9 days post diagnosis, off isolation (2) Bacteremia due to Enterococcus Code(s): R78.81 - BACTEREMIA; B95.2 - ENTEROCOCCUS THE CAUSE OF DISEASES CLASSIFIED ELSEWHERE Status: Acute Comment: 2/2 sets positive. on rocephin - doesn't cover enterococcus, changed to Ampicillin. ? ALFONSO thursday. ID following, will need 4-6 weeks of IV antibiotics. May need ot consider adding in Gent for artificial device incolvement, but given history of ASHLEY/CKD would be cautius. Cr continues to improve now (3) Acute and chronic respiratory failure Code(s): J96.20 - ACUTE AND CHR RESP FAILURE, UNSP W HYPOXIA OR HYPERCAPNIA Status: Acute Qualifiers: Respiratory failure complication: hypoxia Qualified Code(s): J96.21 - Acute and chronic respiratory failure with hypoxia (4) Chronic kidney disease, stage 3 Code(s): N18.3 - CHRONIC KIDNEY DISEASE, STAGE 3 (MODERATE) Status: Acute Comment: Cr trending down. 1.44 today. recheck in AM (5) Chronic systolic heart failure Code(s): I50.22 - CHRONIC SYSTOLIC (CONGESTIVE) HEART FAILURE Status: Chronic (6) Pneumonia, community acquired Code(s): J18.9 - PNEUMONIA, UNSPECIFIED ORGANISM Status: Acute Qualifiers: Lung location: unspecified part of lung - Plan cont current plan of care, plan discussed w/ family, PT/OT, incentive spirometry , out of bed/ambulate, DVT proph w/lovenox * . transfer to [facility]. slowly improving. needs more PT
[2017-07-23] MEDS: cefTRIAXone\\ROCEPHIN 2 GM in Sodium Chloride 0.9% 100 ML IVPB SCH (14:45)
--- NOTE | 2017-07-23 14:51 | PRG ---
DATE OF SERVICE: 07/23/2017 SUBJECTIVE: This is a recheck on a consultation from yesterday. Our service was consulted for left knee and left hip pain. Patient states today that his pain is improved with Tylenol with codeine. He has not ambulated with therapy since our visit yesterday. He denies any new complaints. We did obtain new x- rays of the pelvis and knees since our visit yesterday. OBJECTIVE: VITAL SIGNS: Stable. The patient is afebrile. Bilateral knees without any sign for effusion. Active range of motion without pain. EXTREMITIES: No extensor lag. Quad tendon intact. Negative log roll. Ruborous changes distally bilaterally that appear unchanged from yesterday. X-RAYS: X-rays obtained in the hospital including AP pelvis and 2 views of the left knee as well as 2 views of the right knee consistent with osteoarthritis changes most pronounced in the medial compartments of both knees with bone on bone contact. There is subchondral sclerosis and osteophyte formation present. These appear unchanged when compared with x-rays done in the office in August of last year. ASSESSMENT AND PLAN: 1. Left knee and left hip pain consistent with osteoarthritis. Low concern for septic arthritis. Continue weightbear as tolerated. Continue physical therapy. Agree with Tylenol with Codeine for pain control. Reconsult if needed. [email or web address]
[2017-07-23] MEDS: Famotidine 20 MG TAB PO SCH (21:10)
--- NOTE | 2017-07-23 22:46 | CON ---
DATE OF CONSULTATION: 07/23/2017 REASON FOR INITIAL CONSULTATION: 1. 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 2. Indwelling suprapubic tube. 3. Enterococcus bacteremia and Enterococcus urinary tract infection. 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 He had Enterococcus in his blood and this was also isolated from his suprapubic tube, which was placed outside of the hospital. Dr. Alvarez had his SP tube changed on 07/16/2017. Since then he has improved somewhat in is currently on the Intensive Care Unit. He has been making a gradual progress. With respect to his suprapubic tube has been indwelling for a week and does need exchange. PHYSICAL EXAMINATION: VITAL SIGNS: Temperature is 96.8, pulse 70, respirations are 19, O2 saturations are 100% on 2 liters by nasal cannula. Blood pressure is 129/62. GENERAL: This is awake, alert, white male who is breathing on his own. He is able to communicate, recognizes that quite a few things have gone wrong since he has been here by his report. He reports that he seems to have one problem after another. The patient overall seems to be in reasonable spirits considering his turn of events over the last 2 weeks. HEAD, EYES, EARS, NOSE AND THROAT: Extraocular movements are intact. Sclerae are anicteric. Oropharynx is clear. NECK: Supple. LUNGS: Clear to auscultation bilaterally with crackles heard in the bilateral bases. He is breathing oxygen by nasal cannula. ABDOMEN: Soft and nontender. An existing suprapubic tube is seen in place, straw colored urine is draining, does not appear to have significant amount of particulates in it. I did go ahead and change his suprapubic tube on rounds today. We sterilely prepped the suprapubic tube insertion site, irrigated the patient's bladder to verify clearance of particulates using sterile water. We then back filled the bladder to 120 mL capacity and discontinue the existing 18 Indian Silastic catheter. We then replaced 18 Indian Silastic catheter with a new 20 Indian Silastic catheter, balloon was inflated to 20 mL and was left indwelling, this drained appropriately and this was subsequently secured to his abdomen by nursing staff. LABORATORY STUDIES: The patient's white count is in the normal range at 5900 today, hemoglobin is 11.4, hematocrit of 36.9. The patient remains with a relative neutrophil shift with 82.9% neutrophils. ANC today is the first day when he has been in the normal range at 4900. Serum chemistries show the patient's current blood urea nitrogen of 64 with a creatinine of 1.44 indicating fairly prerenal status. Estimated glomerular filtration rate is 47. ASSESSMENT AND PLAN: 1. Prostate cancer, currently untreated and likely cause of patient's current outlet obstruction. The patient was previously scheduled for a radical prostatectomy for management of his prostate cancer, but is no longer on the schedule for that. We will plan on managing his prostate cancer medically as an outpatient. At the present time, his outlet obstruction is managed with a suprapubic tube. 2. Urinary retention, currently managed with suprapubic tube, catheter was changed today, and I am recommending that it will be changed on a weekly basis. We did upsize to 20 Indian catheter today. 3. Pulmonary issues. The patient seems to be making gradual progress and is now down to O2 by nasal cannula. 4. Enterococcus urinary tract infection and sepsis. The patient has been on appropriate antibiotic coverage while in hospital and is currently on ceftriaxone as primary antibiotic with coverage of his urinary tract infection. Over 35 minutes of subsequent evaluation and assessment time was spent in evaluation and assessment of this patient, over of which was in face to face evaluation, or in coordination of care, or communication with the patient's family () regarding care, exclusive of any procedures performed, [id number]. [facility]
[2017-07-24] MEDS: Ampicillin 2 GM, Syringe 5.2 ML in Sterile Water 14.8 ML SLOW IVP SCH ×6 (01:32→21:21)
[2017-07-24 04:17] LABS: #Basophils 0.1 thou/uL (0.0-0.2); #Eosinphils 0.1 thou/uL (0.0-0.7); #Lymphocytes 0.4 thou/uL (1.20-3.40); #Monocytes 0.5 thou/uL (0.11-0.59); #Neutrophils 5.2 thou/uL (1.40-6.50); %Basophils 1.5 % (0.0-1.0); %Eosinophils 0.9 % (0.0-10.0); %Monocytes 8.5 % (0.0-10.0); %Neutrophils 83.1 % (42.0-75.0); Hemoglobin 11.3 g/dL (14.0-18.0); Mean Corpuscular HGB CONC 31.6 g/dL (32.0-36.0); Mean Corpuscular Hemoglobin 33.2 pg (27.0-31.0); Mean Platelet Volume 9.7 fL (7.4-10.4); Platelet Count 109 thou/uL (130-400); RBC Distribution Width 15.6 % (11.5-14.5); Red Blood Cell (RBC) Count 3.39 mill/uL (4.70-6.10); White Blood Cell (WBC) Count 6.2 thou/uL (4.8-10.8)
[2017-07-24 04:28] LABS: Anion Gap 14 mmol/L (10-20); BUN (Urea Nitrogen) 71 mg/dL (8.4-25.7); Calc. Creatinine Clearance 42 mL/min (70-130); Calcium 8.7 mg/dL (7.8-10.44); Carbon Dioxide 30 mmol/L (23-31); Chloride 102 mmol/L (98-107); Estimated GFR-MDRD 41; Glucose 104 mg/dL (83-110); Potassium 5.2 mmol/L (3.5-5.1); Sodium 141 mmol/L (136-145)
[2017-07-24] MEDS ORDERED: Sodium Chloride 0.9% 500 ML IV SCH (08:00)
[2017-07-24] MEDS ORDERED: Furosemide 40 MG TAB PO SCH (08:18)
[2017-07-24] MEDS ORDERED: Furosemide 20 MG TAB PO SCH (08:30)
[2017-07-24] MEDS: Furosemide 40 MG TAB PO SCH (09:07)
[2017-07-24] MEDS: guaiFENesin ER 600 MG TAB PO SCH ×3 (09:08→20:23)
[2017-07-24] MEDS: Aspirin 81 mg Enteric Coated Tablet PO SCH (09:08)
[2017-07-24] MEDS: Spironolactone 25 MG TAB PO SCH ×2 (09:08→09:24)
[2017-07-24] MEDS: Clopidogrel Bisulfate 75 MG TAB PO SCH (09:08)
[2017-07-24] MEDS: Sacubitril 49 MG/Valsartan 51 MG TABLET PO SCH ×2 (09:08→20:15)
[2017-07-24] MEDS: Saccharomyces boulardii 250 MG CAP PER TUBE SCH (09:08)
[2017-07-24] MEDS: Carvedilol 6.25 MG TAB PER TUBE SCH ×2 (09:08→20:15)
[2017-07-24] MEDS: Enoxaparin Sodium 40 MG/0.4 ML SYRINGE SC SCH (09:09)
--- NOTE | 2017-07-24 09:18 | PRG ---
DATE OF SERVICE: 07/24/2017 He is awake, alert, responsive. He is better, less short of breath, but very weak. PHYSICAL EXAMINATION: VITAL SIGNS: His sats are 96% on 2 liters, temperature 96, blood pressure 140/68. His I's and O's h ave been 1167 in 1025 out. CHEST: Chest reveals decreased breath sounds without any wheezing. CARDIAC: Normal S1-S2. No gallops. ABDOMEN: Soft, no masses. Creatinine is 1.6, BUN is 71, it has steadily increased. IMPRESSION: 1. Increasing azotemia, probably from diuretics. 2. Congestive heart failure. 3. Urosepsis. 4. Respiratory failure. PLAN: I would hold Lasix until his kidney function improves. Antibiotics as per Infectious Disease. Aggressive PT, supportive care. I will follow.
--- NOTE | 2017-07-24 14:02 | PRG ---
DATE OF SERVICE: 07/24/2017 HISTORY: He is sitting by the bedside with in the room with coughing intermittently, appears chronically ill and weak, but he is oriented, difficulty with speech because of the intermittent coughing plus the weakness, anorexia. He does not like the hospital food, not eating much. No chest pain, no abdominal pain. Still with an indwelling Dailey catheter. PHYSICAL EXAMINATION: VITAL SIGNS: T-max 97.8, currently 96.2, blood pressure 160/67, pulse ox is 96 % on room air. HEENT: Ocular movements are conjugate. Pale conjunctivae, somewhat dry oral mucosa, but not much dryness, no lesions except for a little bit of bruising in the left side of his throat, probably procedural related. LUNGS: Lungs with symmetric basilar crackles. HEART: S1, S2 with a soft murmur at the apex. ABDOMEN: Soft, mildly distended, but not tender. : No bladder distention. EXTREMITIES: Able to move extremities equally. Stasis dermatitis, bruising in the lower extremities, asymmetric swelling with right side more edematous than the left. LABORATORY: White cell count 6.2, hemoglobin 11, platelets 104,000, 83% neutrophils. The creatinine is 1.61, which is a bit higher than previously noted, probably secondary to diuresis which has been discontinued or withheld. The patient had a thoracentesis which had 11,000 RBCs and not many WBCs, protein was 1.9 and LDH 120, consistent with a transudative effusion. The effusion culture negative thus far, acid fast negative. The patient has an indwelling suprapubic tube. ASSESSMENT AND DISCUSSION: Cardiomyopathy, a Watchman device, atrial fibrillation, prostate cancer with suprapubic catheter, CML, E. faecalis bacteremia and influenza B infection plus of findings on ALFONSO suggestive of possible vegetations I believe the mitral valve. The patient will continue with Rocephin and ampicillin. The end date of therapy will be 09/03/2017, weekly labs including CBC, CRP, CMP. Follow up blood cultures. [facility]
--- NOTE | 2017-07-24 14:17 | PDOC.PN ---
- Subjective Encounter Start Date: 07/24/17 Encounter Start Time: 09:30 Pt looks more awake today. transferrred ot IMCU yesterday afternoon. No F/C, no N/V/D/c, feeels weak. Pt saw yesterday, stood up twice. bed exercises. 10 point ROas performed and neg x as above. Ortho has signed off. left hip and leg hurts when immobile. - Objective Resuscitation Status: Resuscitation Status FULL:Full Resuscitation MAR Reviewed: Yes Vital Signs & Weight: Vital Signs (12 hours) Temp Pulse Resp BP BP Pulse Ox 07/24/17 11:36 96.2 F L 70 163/67 H 98 07/24/17 09:08 138/61 07/24/17 07:55 96.7 F L 71 20 148/68 H 97 Weight Admit Weight 197 lb Weight 184 lb 1.6 oz Most Recent Monitor Data Heart Rate from ECG 70 NIBP 130/58 NIBP BP-Mean 86 Respiration from ECG 21 SpO2 98 I&O: 07/23/17 07/24/17 07/25/17 06:59 06:59 06:59 Intake Total 1160 1450 Output Total 1255 1400 Balance -95 50 Result Diagrams: 07/24/17 03:54 07/24/17 03:54 Additional Labs: Accuchecks 07/24/17 07/24/17 07/23/17 10:42 06:01 21:06 POC Glucose 111 H 120 H 138 H 07/23/17 17:14 POC Glucose 123 H Radiology Reviewed by me: Yes EKG Reviewed by me: Yes Phys Exam - Physical Examination Constitutional: NAD HEENT: PERRLA, moist MMs, sclera anicteric, oral pharynx no lesions Neck: no nodes, no JVD, supple, full ROM Respiratory: no wheezing, no rales, no rhonchi, clear to auscultation bilateral Cardiovascular: RRR, no significant murmur, no rub Gastrointestinal: soft, non-tender, no distention, positive bowel sounds Musculoskeletal: pulses present, edema present improved edema Neurological: non-focal, normal sensation, moves all 4 limbs Lymphatic: no nodes Psychiatric: normal affect, A&O x 3 Skin: no rash, normal turgor, cap refill <2 seconds Dx/Plan (1) Bacteremia due to Enterococcus Code(s): R78.81 - BACTEREMIA; B95.2 - ENTEROCOCCUS THE CAUSE OF DISEASES CLASSIFIED ELSEWHERE Status: Acute Comment: 2/2 sets positive. on rocephin - doesn't cover enterococcus, changed to Ampicillin. ? ALFONSO thursday. ID following, will need 4-6 weeks of IV antibiotics. May need ot consider adding in Gent for artificial device incolvement, but given history of ASHLEY/CKD would be cautious. Cr continues up now due to overdiuresis (2) Acute and chronic respiratory failure Code(s): J96.20 - ACUTE AND CHR RESP FAILURE, UNSP W HYPOXIA OR HYPERCAPNIA Status: Acute Qualifiers: Respiratory failure complication: hypoxia Qualified Code(s): J96.21 - Acute and chronic respiratory failure with hypoxia (3) Chronic kidney disease, stage 3 Code(s): N18.3 - CHRONIC KIDNEY DISEASE, STAGE 3 (MODERATE) Status: Acute Comment: Cr trending up. 1.7x today, 500mL bolus, hold diruetics for a couple of days. recheck in AM (4) Chronic systolic heart failure Code(s): I50.22 - CHRONIC SYSTOLIC (CONGESTIVE) HEART FAILURE Status: Chronic (5) Pneumonia, community acquired Code(s): J18.9 - PNEUMONIA, UNSPECIFIED ORGANISM Status: Acute Qualifiers: Lung location: unspecified part of lung (6) Influenza Code(s): J11.1 - FLU DUE TO UNIDENTIFIED INFLUENZA VIRUS W OTH RESP MANIFEST Status: Resolved Comment: treated with tamiflu. on prophylaxis. completed course. 9 days post diagnosis, off isolation - Plan cont current plan of care, plan discussed w/ family, continue antibiotics, PT/OT , respiratory therapy, out of bed/ambulate, DVT proph w/lovenox * .
[2017-07-24] MEDS: cefTRIAXone\\ROCEPHIN 2 GM in Sodium Chloride 0.9% 100 ML IVPB SCH (14:58)
[2017-07-24] MEDS: Famotidine 20 MG TAB PO SCH ×2 (20:15→20:25)
[2017-07-24] MEDS ORDERED: Acetaminophen 650 MG in Premix Bag 1 BAG IVPB PRN (21:56)
[2017-07-25] MEDS: Ampicillin 2 GM, Syringe 5.2 ML in Sterile Water 14.8 ML SLOW IVP SCH ×6 (01:42→21:29)
[2017-07-25 06:01] LABS: #Lymphocytes 0.3 thou/uL (1.20-3.40); #Monocytes 0.5 thou/uL (0.11-0.59); #Neutrophils 4.6 thou/uL (1.40-6.50); %Basophils 0.2 % (0.0-1.0); %Eosinophils 0.9 % (0.0-10.0); %Lymphocytes 5.8 % (21.0-51.0); %Monocytes 8.8 % (0.0-10.0); %Neutrophils 84.3 % (42.0-75.0); Hemoglobin 11.2 g/dL (14.0-18.0); Mean Corpuscular HGB CONC 30.8 g/dL (32.0-36.0); Mean Corpuscular Hemoglobin 32.6 pg (27.0-31.0); Mean Platelet Volume 9.4 fL (7.4-10.4); Platelet Count 104 thou/uL (130-400); RBC Distribution Width 15.7 % (11.5-14.5); Red Blood Cell (RBC) Count 3.43 mill/uL (4.70-6.10); White Blood Cell (WBC) Count 5.5 thou/uL (4.8-10.8)
[2017-07-25 06:20] LABS: Anion Gap 13 mmol/L (10-20); BUN (Urea Nitrogen) 74 mg/dL (8.4-25.7); Calc. Creatinine Clearance 39 mL/min (70-130); Calcium 8.7 mg/dL (7.8-10.44); Carbon Dioxide 30 mmol/L (23-31); Chloride 103 mmol/L (98-107); Estimated GFR-MDRD 39; Glucose 77 mg/dL (83-110); Magnesium 2.1 mg/dL (1.6-2.6); Potassium 4.8 mmol/L (3.5-5.1); Sodium 141 mmol/L (136-145)
[2017-07-25] MEDS ORDERED: Furosemide 20 MG TAB PO SCH (07:30)
[2017-07-25] MEDS: Carvedilol 6.25 MG TAB PER TUBE SCH ×2 (08:40→21:28)
[2017-07-25] MEDS: Aspirin 81 mg Enteric Coated Tablet PO SCH (08:41)
[2017-07-25] MEDS: Sodium Chloride 0.9% 500 ML IV SCH ×2 (08:41→09:30)
[2017-07-25] MEDS: Clopidogrel Bisulfate 75 MG TAB PO SCH (08:41)
[2017-07-25] MEDS: Spironolactone 25 MG TAB PO SCH (09:29)
[2017-07-25] MEDS: Enoxaparin Sodium 40 MG/0.4 ML SYRINGE SC SCH (09:34)
--- NOTE | 2017-07-25 10:32 | PDOC.CTH ---
Cardiology Progress Note - Subjective No new issues. - Objective Vital Signs Temp Pulse Resp BP BP Pulse Ox 07/25/17 08:40 124/60 07/25/17 07:20 97.8 F 72 18 129/60 94 L 07/25/17 04:25 97.0 F L 71 18 135/64 98 07/25/17 00:15 92 L 07/24/17 23:57 96.8 F L 70 18 118/57 L 97 Admit Weight 197 lb Weight 194 lb 5.012 oz 07/24/17 07/25/17 07/26/17 06:59 06:59 06:59 Intake Total 1450 160 Output Total 1400 400 Balance 50 -240 - Physical Examination General/Neuro: NAD Neck: no JVD present Lungs: CTA, unlabored respirations Heart: RRR Abdomen: NT/ND Extremities: + edema B (none) - Telemetry Telemetry Rhythm: NSR - Labs Result Diagrams: 07/25/17 05:20 07/25/17 05:20 Troponin/CKMB CK-MB (CK-2) 7.4 ng/mL (0-6.6) H* 07/14/17 15:10 Troponin I 0.113 ng/mL (< 0.028) H 07/14/17 22:05 - Assessment/Plan 1. Acute on chronic systolic heart failure. 2. ASHLEY on CKD. 3. Enteroccoccus bacteremia 4. 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 Ischemic CM, EF at 20-25% 6. Presence of an AICD. PLAN: - Agree with holding lasix for today. - Gentle hydration given reduced EF but would restart PO lasix in the next 24 to 48 hrs once creatinine turns around. - Abx per pirmary team.
[2017-07-25] MEDS: Dextrose 5 %-0.45 % NaCl 1,000 ML IV SCH (10:50)
[2017-07-25] MEDS: guaiFENesin ER 600 MG TAB PO SCH ×2 (12:07→21:28)
[2017-07-25] MEDS: Sacubitril 49 MG/Valsartan 51 MG TABLET PO SCH ×2 (12:08→21:28)
[2017-07-25] MEDS: Saccharomyces boulardii 250 MG CAP PER TUBE SCH (12:08)
--- NOTE | 2017-07-25 12:50 | PRG ---
DATE OF SERVICE: 07/25/2017 SUBJECTIVE: This morning, he is weak. He was encephalopathic last night. OBJECTIVE: VITAL SIGNS: Sats 98% on room air, blood pressure 124/60, temperature is 97, respirations 18. His I's and O's 1450 in and 400 out. CHEST: Chest revealed rhonchi. CARDIAC: Normal S1, S2. LABORATORY DATA: White count 5000, H and H 9 and 36, platelet count 105. Improved creatinine is 1.7 . BUN 74. IMPRESSION: 1. Sepsis. 2. Possible endocarditis, severe deconditioning, pleural effusion, congestive heart failure. Avoid Lasix until his renal function improves, metabolic encephalopathy. PT and supportive care. We will follow.
[2017-07-25] MEDS: cefTRIAXone\\ROCEPHIN 2 GM in Sodium Chloride 0.9% 100 ML IVPB SCH (14:00)
--- NOTE | 2017-07-25 15:16 | PDOC.PN ---
- Subjective Encounter Start Date: 07/25/17 Encounter Start Time: 09:05 Pt somnolent, no acute overnight events,. no f/C, no N/v/D/C, no CP, no cough. up to chair twice yesterday. took steps wth PT pt too sleepy to give a good ROS today, just had a bath. T3 stopped for AMS, pt responds to repositioning fine when leg pain erupts - Objective Resuscitation Status: Resuscitation Status FULL:Full Resuscitation MAR Reviewed: Yes Vital Signs & Weight: Vital Signs (12 hours) Temp Pulse Resp BP BP Pulse Ox 07/25/17 12:05 96.6 F L 70 20 122/59 L 95 07/25/17 11:20 96.6 F L 70 20 122/59 L 95 07/25/17 08:40 124/60 07/25/17 08:00 97.8 F 72 18 94 L 07/25/17 07:20 97.8 F 72 18 129/60 94 L 07/25/17 04:25 97.0 F L 71 18 135/64 98 Weight Admit Weight 197 lb Weight 194 lb 5.012 oz Most Recent Monitor Data Heart Rate from ECG 70 NIBP 130/58 NIBP BP-Mean 86 Respiration from ECG 21 SpO2 98 I&O: 07/24/17 07/25/17 07/26/17 06:59 06:59 06:59 Intake Total 1450 160 250 Output Total 1400 400 Balance 50 -240 250 Result Diagrams: 07/25/17 05:20 07/25/17 05:20 Additional Labs: Accuchecks 07/25/17 07/25/17 07/25/17 13:09 10:28 05:32 POC Glucose 100 77 73 07/24/17 07/24/17 20:44 16:28 POC Glucose 118 H 92 Phys Exam - Physical Examination Constitutional: NAD HEENT: PERRLA, moist MMs, sclera anicteric, oral pharynx no lesions Neck: no nodes, no JVD, supple, full ROM Respiratory: no wheezing, no rales, no rhonchi, clear to auscultation bilateral Cardiovascular: RRR, no significant murmur, no rub Gastrointestinal: soft, non-tender, no distention, positive bowel sounds Musculoskeletal: pulses present, edema present Neurological: non-focal, normal sensation, moves all 4 limbs Lymphatic: no nodes Skin: no rash, normal turgor, cap refill <2 seconds Dx/Plan (1) Bacteremia due to Enterococcus Code(s): R78.81 - BACTEREMIA; B95.2 - ENTEROCOCCUS THE CAUSE OF DISEASES CLASSIFIED ELSEWHERE Status: Acute Comment: 2/2 sets positive. on rocephin - doesn't cover enterococcus, changed to Ampicillin. ? ALFONSO thursday. ID following, will need 4-6 weeks of IV antibiotics. May need ot consider adding in Gent for artificial device incolvement, but given history of ASHLEY/CKD would be cautious. Cr continues up now due to overdiuresis. Aldactone and lasix on hold, given another 5oomL fluid back, AM labs (2) Acute and chronic respiratory failure Code(s): J96.20 - ACUTE AND CHR RESP FAILURE, UNSP W HYPOXIA OR HYPERCAPNIA Status: Acute Qualifiers: Respiratory failure complication: hypoxia Qualified Code(s): J96.21 - Acute and chronic respiratory failure with hypoxia (3) Chronic kidney disease, stage 3 Code(s): N18.3 - CHRONIC KIDNEY DISEASE, STAGE 3 (MODERATE) Status: Acute Comment: Cr trending up. 1.7x today, 500mL bolus, hold diruetics for a couple of days. recheck in AM (4) Chronic systolic heart failure Code(s): I50.22 - CHRONIC SYSTOLIC (CONGESTIVE) HEART FAILURE Status: Chronic (5) Pneumonia, community acquired Code(s): J18.9 - PNEUMONIA, UNSPECIFIED ORGANISM Status: Acute Qualifiers: Lung location: unspecified part of lung (6) Influenza Code(s): J11.1 - FLU DUE TO UNIDENTIFIED INFLUENZA VIRUS W OTH RESP MANIFEST Status: Resolved Comment: treated with tamiflu. on prophylaxis. completed course. 9 days post diagnosis, off isolation - Plan * .
[2017-07-25] MEDS: Famotidine 20 MG TAB PO SCH (21:29)
[2017-07-26] MEDS: Sodium Chloride 0.9% 500 ML IV SCH (00:15)
[2017-07-26] MEDS: Ampicillin 2 GM, Syringe 5.2 ML in Sterile Water 14.8 ML SLOW IVP SCH ×6 (01:06→22:18)
[2017-07-26 05:44] LABS: #Lymphocytes 0.4 thou/uL (1.20-3.40); #Monocytes 0.5 thou/uL (0.11-0.59); #Neutrophils 5.3 thou/uL (1.40-6.50); %Eosinophils 0.7 % (0.0-10.0); %Lymphocytes 6.2 % (21.0-51.0); %Monocytes 8.4 % (0.0-10.0); %Neutrophils 84.7 % (42.0-75.0); Mean Corpuscular HGB CONC 31.4 g/dL (32.0-36.0); Mean Corpuscular Hemoglobin 32.7 pg (27.0-31.0); Mean Platelet Volume 9.6 fL (7.4-10.4); Platelet Count 92 thou/uL (130-400); Red Blood Cell (RBC) Count 3.37 mill/uL (4.70-6.10); White Blood Cell (WBC) Count 6.2 thou/uL (4.8-10.8)
[2017-07-26 06:09] LABS: Anion Gap 12 mmol/L (10-20); BUN (Urea Nitrogen) 72 mg/dL (8.4-25.7); Calc. Creatinine Clearance 44 mL/min (70-130); Calcium 8.4 mg/dL (7.8-10.44); Carbon Dioxide 30 mmol/L (23-31); Chloride 105 mmol/L (98-107); Estimated GFR-MDRD 39; Glucose 137 mg/dL (83-110); Magnesium 2.2 mg/dL (1.6-2.6); Potassium 4.2 mmol/L (3.5-5.1); Sodium 143 mmol/L (136-145)
[2017-07-26] MEDS: Dextrose 5 %-0.45 % NaCl 1,000 ML IV SCH (08:12)
[2017-07-26] MEDS: guaiFENesin ER 600 MG TAB PO SCH ×2 (08:13→22:25)
[2017-07-26] MEDS: Clopidogrel Bisulfate 75 MG TAB PO SCH (08:13)
[2017-07-26] MEDS: Aspirin 81 mg Enteric Coated Tablet PO SCH (08:13)
[2017-07-26] MEDS: Carvedilol 6.25 MG TAB PER TUBE SCH ×2 (08:13→22:20)
[2017-07-26] MEDS: Saccharomyces boulardii 250 MG CAP PER TUBE SCH (08:13)
[2017-07-26] MEDS: Sacubitril 49 MG/Valsartan 51 MG TABLET PO SCH ×2 (09:17→22:18)
--- NOTE | 2017-07-26 13:05 | PDOC.CTH ---
Cardiology Progress Note - Subjective he is doing better today. No new issues. - Objective Vital Signs Temp Pulse Resp BP BP Pulse Ox 07/26/17 10:57 96.9 F L 70 18 91 L 07/26/17 10:52 96.9 F L 70 18 116/60 91 L 07/26/17 09:20 95 07/26/17 08:13 129/58 L 07/26/17 08:00 97.4 F L 70 20 122/59 L 93 L 07/26/17 04:35 96.5 F L 70 18 120/61 93 L Admit Weight 197 lb Weight 204 lb 4 oz 07/25/17 07/26/17 07/27/17 06:59 06:59 06:59 Intake Total 160 2309 Output Total 400 745 Balance -240 1564 - Physical Examination General/Neuro: NAD Neck: no JVD present Lungs: CTA, unlabored respirations Heart: RRR Abdomen: NT/ND Extremities: + edema B (trace) - Telemetry Telemetry Rhythm: NSR - Labs Result Diagrams: 07/26/17 05:25 07/26/17 05:25 Troponin/CKMB CK-MB (CK-2) 7.4 ng/mL (0-6.6) H* 07/14/17 15:10 Troponin I 0.113 ng/mL (< 0.028) H 07/14/17 22:05 - Assessment/Plan 1. Acute on chronic systolic heart failure. 2. ASHLEY on CKD. 3. Enteroccoccus bacteremia 4. 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 Ischemic CM, EF at 20-25% 6. Presence of an AICD. PLAN: - Continue to hold lasix. - Gentle hydration given reduced EF but would restart PO lasix in the next 24 hrs once creatinine turns around. - Abx per pirmary team.
[2017-07-26] MEDS: cefTRIAXone\\ROCEPHIN 2 GM in Sodium Chloride 0.9% 100 ML IVPB SCH (16:05)
--- NOTE | 2017-07-26 18:23 | PRG ---
DATE OF SERVICE: 07/26/2017 SUBJECTIVE: Clement Alvarez is awake, responsive. He is better. He is stronger. OBJECTIVE: VITAL SIGNS: Sats are 93%, temperature 97, 122/59 blood pressure is noted. His I's and O's are 2309 in and 745 out. CHEST: Chest reveals bilateral rhonchi and crackles. CARDIAC: Normal S1, S2. LABORATORY DATA: White count is 6000, H and H 11 and 35, platelet count is 92. Creatinine is still 1.6. IMPRESSION: Azotemia, sepsis, renal failure, encephalopathy, marked weakness, pleural effusion. PLAN: Continue slow hydration. Continue PT. I will follow.
--- NOTE | 2017-07-26 18:36 | PDOC.PN ---
- Subjective Encounter Start Date: 07/26/17 Encounter Start Time: 18:00 Subjective: f/u for Enterococcus bacteremia and polymicrobial UTI on Ampicillin -: and Rocephin with plans for shelter IV abx until 09/03/17. - Objective Resuscitation Status: Resuscitation Status FULL:Full Resuscitation MAR Reviewed: Yes Vital Signs & Weight: Vital Signs (12 hours) Temp Pulse Resp BP BP Pulse Ox 07/26/17 16:19 97.9 F 69 20 123/61 100 07/26/17 10:57 96.9 F L 70 18 91 L 07/26/17 10:52 96.9 F L 70 18 116/60 91 L 07/26/17 09:20 95 07/26/17 08:13 129/58 L 07/26/17 08:00 97.4 F L 70 20 122/59 L 93 L Weight Admit Weight 197 lb Weight 204 lb 4 oz Most Recent Monitor Data Heart Rate from ECG 70 NIBP 130/58 NIBP BP-Mean 86 Respiration from ECG 21 SpO2 98 I&O: 07/25/17 07/26/17 07/27/17 06:59 06:59 06:59 Intake Total 160 2309 Output Total 400 745 Balance -240 1564 Result Diagrams: 07/26/17 05:25 07/26/17 05:25 Additional Labs: Accuchecks 07/26/17 07/25/17 05:27 23:44 POC Glucose 123 H 142 H Microbiology 07/21/17 10:20 Pleural fluid Body Fluid Culture - Final 07/21/17 10:20 Pleural fluid Acid Fast Bacilli Smear - Final Laboratory Tests 07/23/17 07/24/17 07/25/17 04:35 03:54 05:20 Creatinine 1.44 H 1.61 H 1.71 H Magnesium 07/26/17 05:25 Creatinine Magnesium 2.2 EKG Reviewed by me: Yes (Tele - SR) Phys Exam - Physical Examination Constitutional: NAD frail, ill-appearing HEENT: PERRLA, oral pharynx no lesions Neck: no JVD, supple diminished in bases Cardiovascular: RRR Gastrointestinal: soft, non-tender, no distention, positive bowel sounds mild LE edema Musculoskeletal: pulses present Neurological: normal sensation, moves all 4 limbs Skin: normal turgor, cap refill <2 seconds Dx/Plan (1) Acute and chronic respiratory failure Code(s): J96.20 - ACUTE AND CHR RESP FAILURE, UNSP W HYPOXIA OR HYPERCAPNIA Status: Acute Qualifiers: Respiratory failure complication: hypoxia Qualified Code(s): J96.21 - Acute and chronic respiratory failure with hypoxia Comment: Resolved with pulm support (2) Bacteremia due to Enterococcus Code(s): R78.81 - BACTEREMIA; B95.2 - ENTEROCOCCUS THE CAUSE OF DISEASES CLASSIFIED ELSEWHERE Status: Acute Comment: 2/2 sets positive. on rocephin - doesn't cover enterococcus, changed to Ampicillin. ? ALFONSO thursday. ID following, IV abx until 09/03/17. Cr continues up now due to overdiuresis. Aldactone and lasix on hold. Gentle fluid replacement (3) Chronic kidney disease, stage 3 Code(s): N18.3 - CHRONIC KIDNEY DISEASE, STAGE 3 (MODERATE) Status: Acute Comment: Creat 1.7, hold diuretics and nephrotoxic meds, continue IVF's (4) Pneumonia, community acquired Code(s): J18.9 - PNEUMONIA, UNSPECIFIED ORGANISM Status: Acute Qualifiers: Lung location: unspecified part of lung (5) Chronic systolic heart failure Code(s): I50.22 - CHRONIC SYSTOLIC (CONGESTIVE) HEART FAILURE Status: Chronic (6) Influenza Code(s): J11.1 - FLU DUE TO UNIDENTIFIED INFLUENZA VIRUS W OTH RESP MANIFEST Status: Resolved Comment: treated with tamiflu. on prophylaxis. completed course. 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
[2017-07-26] MEDS: Famotidine 20 MG TAB PO SCH (22:19)
[2017-07-27] MEDS ORDERED: Ziprasidone 20 MG VIAL IM SCH (02:45)
[2017-07-27] MEDS: Ampicillin 2 GM, Syringe 5.2 ML in Sterile Water 14.8 ML SLOW IVP SCH ×6 (03:02→22:13)
[2017-07-27] MEDS: Dextrose 5 %-0.45 % NaCl 1,000 ML IV SCH ×2 (05:37→22:10)
[2017-07-27 06:02] LABS: Anion Gap 14 mmol/L (10-20); BUN (Urea Nitrogen) 71 mg/dL (8.4-25.7); Calc. Creatinine Clearance 46 mL/min (70-130); Calcium 8.4 mg/dL (7.8-10.44); Carbon Dioxide 28 mmol/L (23-31); Chloride 104 mmol/L (98-107); Estimated GFR-MDRD 42; Glucose 132 mg/dL (83-110); Sodium 142 mmol/L (136-145)
[2017-07-27 06:06] LABS: #Eosinphils 0.1 thou/uL (0.0-0.7); #Lymphocytes 0.3 thou/uL (1.20-3.40); #Monocytes 0.5 thou/uL (0.11-0.59); #Neutrophils 5.7 thou/uL (1.40-6.50); %Basophils 0.2 % (0.0-1.0); %Eosinophils 0.8 % (0.0-10.0); %Lymphocytes 5.2 % (21.0-51.0); %Monocytes 6.9 % (0.0-10.0); %Neutrophils 86.9 % (42.0-75.0); Hemoglobin 11.1 g/dL (14.0-18.0); Mean Corpuscular HGB CONC 31.3 g/dL (32.0-36.0); Mean Corpuscular Hemoglobin 32.8 pg (27.0-31.0); Mean Platelet Volume 10.2 fL (7.4-10.4); Platelet Count 85 thou/uL (130-400); Red Blood Cell (RBC) Count 3.38 mill/uL (4.70-6.10); White Blood Cell (WBC) Count 6.6 thou/uL (4.8-10.8)
[2017-07-27] MEDS: Enoxaparin Sodium 30 MG/0.3 ML SYRINGE SC SCH (09:41)
[2017-07-27] MEDS: Clopidogrel Bisulfate 75 MG TAB PO SCH (09:42)
[2017-07-27] MEDS: Aspirin 81 mg Enteric Coated Tablet PO SCH (09:42)
[2017-07-27] MEDS: guaiFENesin ER 600 MG TAB PO SCH ×2 (09:42→22:13)
[2017-07-27] MEDS: Spironolactone 25 MG TAB PO SCH (09:42)
[2017-07-27] MEDS: Carvedilol 6.25 MG TAB PER TUBE SCH ×2 (09:42→22:12)
[2017-07-27] MEDS: Saccharomyces boulardii 250 MG CAP PER TUBE SCH (09:43)
[2017-07-27] MEDS: Sacubitril 49 MG/Valsartan 51 MG TABLET PO SCH ×2 (09:43→22:12)
--- NOTE | 2017-07-27 10:21 | PRG ---
DATE OF SERVICE: 07/27/2017 This morning he is weak. PHYSICAL EXAMINATION: VITAL SIGNS: Sats are 92 on room air, blood pressure 120/64, temperature 98. I's and O's are diffic ult to assess. CHEST: Chest revealed decreased breath sounds without any wheezing. CARDIAC: Normal S1, S2. No gallops. ABDOMEN: No masses. IMPRESSION: 1. Escherichia coli sepsis. 2. Urinary tract infection. 3. Renal failure. 4. Cardiomyopathy. 5. Congestive heart failure. 6. Severe deconditioning. PLAN: Ceftriaxone, ampicillin for presumed E. coli sepsis, presumed endocarditis. Continue PT and supportive care. Eventually placement.
--- NOTE | 2017-07-27 10:34 | PDOC.PN ---
- Subjective Encounter Start Date: 07/27/17 Encounter Start Time: 10:05 Subjective: f/u for Enterococcus bacteremia and polymicrobial UTI. Remains weak -: needing 2-3 person assist to get up in a chair. c/o leg and hip stiffness -: and notes some intermittent confusion. - Objective Resuscitation Status: Resuscitation Status FULL:Full Resuscitation MAR Reviewed: Yes Vital Signs & Weight: Vital Signs (12 hours) Temp Pulse Resp BP BP Pulse Ox 07/27/17 09:42 122/64 07/27/17 07:50 98.6 F 70 20 92 L 07/27/17 07:38 98.6 F 70 20 122/64 96 07/27/17 05:43 96.4 F L 69 20 123/68 91 L 07/27/17 02:00 70 116/61 Weight Admit Weight 197 lb Weight 200 lb 6 oz Most Recent Monitor Data Heart Rate from ECG 70 NIBP 130/58 NIBP BP-Mean 86 Respiration from ECG 21 SpO2 98 I&O: 07/26/17 07/27/17 07/28/17 06:59 06:59 06:59 Intake Total 2309 850 Output Total 745 750 Balance 1564 100 Result Diagrams: 07/27/17 04:49 07/27/17 04:49 Additional Labs: Accuchecks 07/27/17 05:41 POC Glucose 125 H Microbiology 07/21/17 10:20 Pleural fluid Body Fluid Culture - Final 07/21/17 10:20 Pleural fluid Acid Fast Bacilli Smear - Final Laboratory Tests 07/23/17 07/24/17 07/25/17 04:35 03:54 05:20 Creatinine 1.44 H 1.61 H 1.71 H Magnesium 07/26/17 05:25 Creatinine 1.70 H Magnesium 2.2 EKG Reviewed by me: Yes (Tele - SR) Phys Exam - Physical Examination frail, alert, responsive to questions HEENT: PERRLA, oral pharynx no lesions Neck: no JVD, supple scattered coarse sounds Respiratory: no wheezing Cardiovascular: RRR Gastrointestinal: soft, non-tender, no distention, positive bowel sounds ankle edema generalized muscle atrophy Musculoskeletal: pulses present Neurological: moves all 4 limbs A x O x 2 Skin: normal turgor, cap refill <2 seconds Dx/Plan (1) Endocarditis of mitral valve Code(s): I05.8 - OTHER RHEUMATIC MITRAL VALVE DISEASES Status: Acute Comment : Continue Ampicillin and Rocephin until 09/03/17 (2) Acute and chronic respiratory failure Code(s): J96.20 - ACUTE AND CHR RESP FAILURE, UNSP W HYPOXIA OR HYPERCAPNIA Status: Acute Qualifiers: Respiratory failure complication: hypoxia Qualified Code(s): J96.21 - Acute and chronic respiratory failure with hypoxia Comment: Resolved with pulm support (3) Bacteremia due to Enterococcus Code(s): R78.81 - BACTEREMIA; B95.2 - ENTEROCOCCUS THE CAUSE OF DISEASES CLASSIFIED ELSEWHERE Status: Acute Comment: 2/2 sets positive. on rocephin - doesn't cover enterococcus, changed to Ampicillin. ? ALFONSO thursday. ID following, IV abx until 09/03/17. Cr continues up now due to overdiuresis. Aldactone and lasix on hold. Gentle fluid replacement (4) Chronic kidney disease, stage 3 Code(s): N18.3 - CHRONIC KIDNEY DISEASE, STAGE 3 (MODERATE) Status: Acute Comment: Creat 1.59, hold diuretics and nephrotoxic meds, continue IVF's (5) Pneumonia, community acquired Code(s): J18.9 - PNEUMONIA, UNSPECIFIED ORGANISM Status: Acute Qualifiers: Lung location: unspecified part of lung Comment: Pulmonary support, Duonebs (6) Chronic systolic heart failure Code(s): I50.22 - CHRONIC SYSTOLIC (CONGESTIVE) HEART FAILURE Status: Chronic (7) Influenza Code(s): J11.1 - FLU DUE TO UNIDENTIFIED INFLUENZA VIRUS W OTH RESP MANIFEST Status: Resolved Comment: treated with tamiflu. on prophylaxis. completed course. 9 days post diagnosis, off isolation - Plan plan discussed w/ family, continue antibiotics, PT/OT, adoption social worker, respiratory therapy, out of bed/ambulate, DVT proph w/SCDs Stable overall -: Directed PT/OT for mobilization paramount -: Continue IV Ampicilllin and Rocephin until 09/03/17 -: Encourage increased po intake free H2O -: Likely can transition to [facility] anytime * AM lab: BMP, CBC
[2017-07-27 14:39] VITALS: BMI 28.7
[2017-07-27] MEDS: Acetaminophen 325 MG TAB PO PRN (14:59)
[2017-07-27] MEDS: cefTRIAXone\\ROCEPHIN 2 GM in Sodium Chloride 0.9% 100 ML IVPB SCH (14:59)
[2017-07-27] MEDS: Famotidine 20 MG TAB PO SCH (22:13)
[2017-07-28] MEDS: Ampicillin 2 GM, Syringe 5.2 ML in Sterile Water 14.8 ML SLOW IVP SCH ×6 (02:01→21:33)
[2017-07-28 06:04] LABS: Anion Gap 15 mmol/L (10-20); BUN (Urea Nitrogen) 67 mg/dL (8.4-25.7); Calc. Creatinine Clearance 46 mL/min (70-130); Calcium 8.4 mg/dL (7.8-10.44); Carbon Dioxide 26 mmol/L (23-31); Chloride 106 mmol/L (98-107); Estimated GFR-MDRD 41; Glucose 101 mg/dL (83-110); Potassium 4.2 mmol/L (3.5-5.1); Sodium 143 mmol/L (136-145)
[2017-07-28 06:44] LABS: Band 2 % (5-11); Hemoglobin 11.5 g/dL (14.0-18.0); Hypochromia SLIGHT = 6-15 cells (100X) (0-5/hpf); Lymphocytes 12 % (21-51); MDiff Complete? YES; Macrocytosis MODERATE=16-30 cells (100X) (0-5/hpf); Mean Corpuscular Hemoglobin 32.7 pg (27.0-31.0); Mean Platelet Volume 10.3 fL (7.4-10.4); Monocytes 4 % (0-10); Neutrophil 81 % (42-75); PLT Morphology Comment Appears Decreased; Platelet Count 79 thou/uL (130-400); RBC Distribution Width 16.6 % (11.5-14.5); Reactive Lymphocytes 1 % (0-10); Red Blood Cell (RBC) Count 3.51 mill/uL (4.70-6.10); White Blood Cell (WBC) Count 6.2 thou/uL (4.8-10.8)
[2017-07-28] MEDS ORDERED: Furosemide 40 MG/4 ML VIAL SLOW IVP SCH (08:45)
[2017-07-28] MEDS: Carvedilol 6.25 MG TAB PER TUBE SCH ×2 (09:07→21:34)
[2017-07-28] MEDS: Acetaminophen 325 MG TAB PO PRN (09:07)
[2017-07-28] MEDS: Sacubitril 49 MG/Valsartan 51 MG TABLET PO SCH ×2 (09:07→21:36)
[2017-07-28] MEDS: guaiFENesin ER 600 MG TAB PO SCH ×2 (09:07→21:34)
[2017-07-28] MEDS: Spironolactone 25 MG TAB PO SCH (09:07)
[2017-07-28] MEDS: Furosemide 40 MG TAB PO SCH (09:08)
[2017-07-28] MEDS: Enoxaparin Sodium 30 MG/0.3 ML SYRINGE SC SCH (09:08)
[2017-07-28] MEDS: Clopidogrel Bisulfate 75 MG TAB PO SCH (09:08)
[2017-07-28] MEDS: Aspirin 81 mg Enteric Coated Tablet PO SCH (09:08)
[2017-07-28] MEDS: Saccharomyces boulardii 250 MG CAP PER TUBE SCH (09:08)
--- NOTE | 2017-07-28 09:22 | PRG ---
DATE OF SERVICE: 07/28/2017 This morning he is weak, but he is better. PHYSICAL EXAMINATION: VITAL SIGNS: Sats are 100% on room air, respirations 20, temperature 98, pulse 75, blood pressure 10 9/65. CHEST: Bilateral crackles, no wheezing. CARDIAC: Normal S1-S2. No gallops. ABDOMEN: Soft, no masses. LABORATORY: White blood cell count is 6, H&H is 11 and 36, platelet count is low at 79, creatinine i s 1.6. Much improved. I's and O's have been 2302 in, 2500 out. IMPRESSION: 1. Respiratory failure. 2. Presumed endocarditis. 3. Sepsis. 4. Thrombocytopenia. 5. Fractured ribs. 6. Left hemothorax. 7. Azotemia, better. PLAN: We are trying to hold off his diuretics since his renal function is worsening. Cardiology has restarted the diuretics. We will closely observe his BUN and creatinine. Eventually placement.
[2017-07-28] MEDS: cefTRIAXone\\ROCEPHIN 2 GM in Sodium Chloride 0.9% 100 ML IVPB SCH (14:26)
[2017-07-28] MEDS: Dextrose 5 %-0.45 % NaCl 1,000 ML IV SCH (17:40)
--- NOTE | 2017-07-28 17:54 | PDOC.PN ---
- Subjective Encounter Start Date: 07/28/17 Encounter Start Time: 17:30 Subjective: f/u for MV endocarditis and Enterococcus bactermia on Ampicillin -: and Rocephin. Ambulated short distance with PT. Remains weak per -: family but working with PT. - Objective Resuscitation Status: Resuscitation Status FULL:Full Resuscitation MAR Reviewed: Yes Vital Signs & Weight: Vital Signs (12 hours) Temp Pulse Resp BP BP Pulse Ox 07/28/17 17:50 71 16 111/52 L 98 07/28/17 13:38 72 20 90 L 07/28/17 11:41 97.8 F 69 20 127/66 91 L 07/28/17 09:07 122/64 07/28/17 08:30 98 F 75 20 119/65 91 L 07/28/17 08:15 97.6 F 71 18 Weight Admit Weight 197 lb Weight 201 lb 14.4 oz Most Recent Monitor Data Heart Rate from ECG 70 NIBP 130/58 NIBP BP-Mean 86 Respiration from ECG 21 SpO2 98 I&O: 07/27/17 07/28/17 07/29/17 06:59 06:59 06:59 Intake Total 1450 Output Total 850 Balance 600 Result Diagrams: 07/28/17 05:02 07/28/17 05:02 Additional Labs: Accuchecks 07/28/17 07/28/17 07/28/17 17:15 11:22 06:08 POC Glucose 118 H 124 H 100 07/27/17 22:02 POC Glucose 154 H EKG Reviewed by me: Yes (Tele - Bi-V pacing) Phys Exam - Physical Examination sleeping, arouses briefly but falls back to sleep HEENT: oral pharynx no lesions Neck: no JVD, supple diminished in bases, few coarse sounds Cardiovascular: RRR Gastrointestinal: soft, non-tender, no distention, positive bowel sounds Deviation from normal: multiple areas of ecchymosis on extremities Skin: normal turgor, cap refill <2 seconds Dx/Plan (1) Endocarditis of mitral valve Code(s): I05.8 - OTHER RHEUMATIC MITRAL VALVE DISEASES Status: Acute Comment : Continue Ampicillin and Rocephin until 09/03/17 (2) Acute and chronic respiratory failure Code(s): J96.20 - ACUTE AND CHR RESP FAILURE, UNSP W HYPOXIA OR HYPERCAPNIA Status: Acute Qualifiers: Respiratory failure complication: hypoxia Qualified Code(s): J96.21 - Acute and chronic respiratory failure with hypoxia Comment: Resolved with pulm support (3) Bacteremia due to Enterococcus Code(s): R78.81 - BACTEREMIA; B95.2 - ENTEROCOCCUS THE CAUSE OF DISEASES CLASSIFIED ELSEWHERE Status: Acute Comment: 2/2 sets positive. on rocephin - doesn't cover enterococcus, changed to Ampicillin. ID following, IV abx until 09/03/17. Lasix 40mg po daily. (4) Chronic kidney disease, stage 3 Code(s): N18.3 - CHRONIC KIDNEY DISEASE, STAGE 3 (MODERATE) Status: Acute Comment: Baseline, saline lock IVF's (5) Pneumonia, community acquired Code(s): J18.9 - PNEUMONIA, UNSPECIFIED ORGANISM Status: Acute Qualifiers: Lung location: unspecified part of lung Comment: Pulmonary support, Duonebs (6) Chronic systolic heart failure Code(s): I50.22 - CHRONIC SYSTOLIC (CONGESTIVE) HEART FAILURE Status: Chronic (7) Influenza Code(s): J11.1 - FLU DUE TO UNIDENTIFIED INFLUENZA VIRUS W OTH RESP MANIFEST Status: Resolved Comment: treated with tamiflu. on prophylaxis. completed course. 9 days post diagnosis, off isolation - Plan plan discussed w/ family, continue antibiotics, PT/OT, social work nurse, respiratory therapy, out of bed/ambulate, DVT proph w/SCDs Stable overall -: Continue Ampicillin and Rocephin until 09/03/17 -: PT for mobilization and ambulation -: Continue Lasix 40mg po daily -: Likely will need outpt O2 on d/c * Plan for d/c 07.29.17
[2017-07-28] MEDS: Famotidine 20 MG TAB PO SCH (21:33)
[2017-07-29] MEDS: Acetaminophen/Codeine 30-300mg Tablet PO PRN (01:40)
[2017-07-29] MEDS: Ampicillin 2 GM, Syringe 5.2 ML in Sterile Water 14.8 ML SLOW IVP SCH ×4 (01:41→13:41)
[2017-07-29 08:05] LABS: #Basophils 0.1 thou/uL (0.0-0.2); #Eosinphils 0.1 thou/uL (0.0-0.7); #Lymphocytes 0.4 thou/uL (1.20-3.40); #Monocytes 0.4 thou/uL (0.11-0.59); #Neutrophils 4.6 thou/uL (1.40-6.50); %Basophils 1.4 % (0.0-1.0); %Lymphocytes 6.9 % (21.0-51.0); %Monocytes 7.8 % (0.0-10.0); %Neutrophils 82.8 % (42.0-75.0)
[2017-07-29 08:06] LABS: Hemoglobin 11.7 g/dL (14.0-18.0); Mean Corpuscular Hemoglobin 32.8 pg (27.0-31.0); Mean Platelet Volume 10.4 fL (7.4-10.4); Platelet Count 76 thou/uL (130-400); RBC Distribution Width 16.8 % (11.5-14.5); Red Blood Cell (RBC) Count 3.57 mill/uL (4.70-6.10); White Blood Cell (WBC) Count 5.5 thou/uL (4.8-10.8)
[2017-07-29 08:37] LABS: MDiff Complete? YES; Macrocytosis SLIGHT = 6-15 cells (100X) (0-5/hpf); PLT Morphology Comment Appears Decreased
--- NOTE | 2017-07-29 09:22 | PRG ---
DATE OF SERVICE: 07/29/2017 This morning he is doing better. He is weak. His appetite is somewhat better. PHYSICAL EXAMINATION: VITAL SIGNS: Sats are 100% on room air, pulse 60, temperature 97, blood pressure 150/52. CHEST: Chest reveals decreased breath sounds, no wheezing. CARDIAC: Normal S1, S2. ABDOMEN: Soft, no masses. LABORATORY DATA: White count 5000, H&H 11 and 38, platelet count is 76. Electrolytes are normal. IMPRESSION: 1. Severe deconditioning. 2. Flu. 3. Left hemothorax from a fall. 4. Multiple rib fractures. 5. Congestive heart failure. 6. Possibly endocarditis. 7. Sepsis. PLAN: He will be discharged to [place]. I suggest aggressive PT, neb treatments. He needs very close followup on his renal functions and try and avoid excessive diuretics. Continue neb treatments at least several times a day. He can be seen back in the office in a month i f he is walking stable.
[2017-07-29 09:26] LABS: Anion Gap 11 mmol/L (10-20); BUN (Urea Nitrogen) 66 mg/dL (8.4-25.7); Calc. Creatinine Clearance 42 mL/min (70-130); Calcium 8.6 mg/dL (7.8-10.44); Carbon Dioxide 32 mmol/L (23-31); Chloride 106 mmol/L (98-107); Estimated GFR-MDRD 38; Glucose 143 mg/dL (83-110); Sodium 145 mmol/L (136-145)
[2017-07-29] MEDS: guaiFENesin ER 600 MG TAB PO SCH (09:40)
[2017-07-29] MEDS: Spironolactone 25 MG TAB PO SCH (09:40)
[2017-07-29] MEDS: Carvedilol 6.25 MG TAB PER TUBE SCH (09:40)
[2017-07-29] MEDS: Aspirin 81 mg Enteric Coated Tablet PO SCH (09:41)
[2017-07-29] MEDS: Enoxaparin Sodium 30 MG/0.3 ML SYRINGE SC SCH (09:41)
[2017-07-29] MEDS: Saccharomyces boulardii 250 MG CAP PER TUBE SCH (09:41)
[2017-07-29] MEDS: Furosemide 40 MG TAB PO SCH ×3 (09:41→14:52)
[2017-07-29] MEDS: Clopidogrel Bisulfate 75 MG TAB PO SCH (09:41)
[2017-07-29] MEDS: Sacubitril 49 MG/Valsartan 51 MG TABLET PO SCH (09:44)
--- NOTE | 2017-07-29 12:44 | DIS ---
DATE OF ADMISSION: 07/14/2017 DATE OF DISCHARGE: 07/29/2017 DISCHARGE DIAGNOSES: 1. Acute on chronic hypoxemic hypercapnic respiratory failure, multifactorial, improved. 2. Suspected endocarditis of the mitral valve. 3. Bacteremia with Enterococcus. 4. Bilateral pneumonia, healthcare associated, likely streptococcal species, improved. 5. Status post influenza B. 6. Acute on chronic systolic congestive heart failure with ejection fraction of 20%-25%. 7. Severe deconditioning. 8. Acute kidney injury on chronic kidney disease stage 3. 9. Chronic myeloid leukemia. 10. History of atrial fibrillation, status post Watchman device placement. 11. Chronic venous stasis ulcerations of the lower extremities. 12. Chronic urinary retention with suprapubic catheter placement. CONSULTATIONS: Dr. Pelayo with Infectious Disease service. Dr. Owens with Pulmonology Service. Dr. Cara Guillen with Urology Service. Dr. Araujo with Cardiology Service. PERTINENT LABORATORY DATA AND X-RAY FINDINGS: Creatinine ranged between 1.20-1.93 with estimated GFR ranging between 38-58. BNP 8883. Albumin ranged between 2.5-3.2. TSH 1.13. Serum cortisol level 19. CBC showed a white blood cell count ranging between 5.5-10.5, hemoglobin ranging between 11.0-12 .9. Blood cultures x2 from 07/14/2017 showed Enterococcus faecalis. Urine culture dated 07/14/2017 showed pseudomonas putida greater than 100,000 colonies as well as Staphylococcus aureus greater than 100,000 colonies and Enterococcus species greater than 100,000 colonies. Influenza B positive, 06/17. Repeat blood cultures dated 07/18/2017 showed no growth at 5 days. Pleural fluid culture da lindsey 07/21/2017 showed no growth at 5 days. AFB smear dated 07/21/2017, negative, culture pending. P ortable chest x-ray dated 07/14/2017 showed pacer device in the left hemithorax. Consolidation and a telectasis in the left lung base with effusion. CT of the brain without contrast dated 07/14/2017 sh owed no acute intracranial process. A 2D transthoracic echocardiogram dated 07/15/2017 showed ejecti on fraction of 20%-25%. Left atrial moderate dilation. Probable small mobile vegetation on the mitr al valve. Moderate mitral valve regurgitation. Large pleural effusion noted. Transesophageal echoc ardiogram dated 07/20/2017 showed biatrial enlargement. Small masses in the anterior mitral valve le aflet suggestive of a ruptured chordae tendineae versus small vegetation. Moderate mitral valve regu rgitation. Watchman device well positioned noted. No vegetations noted on the pacemaker wires. Ple ural fluid cytology showed no malignant cells, 07/21/2017. HOSPITAL COURSE: Patient was admitted to the critical care unit after initially presenting with acut e hypoxic respiratory failure, placed on mechanical ventilation. The patient was noted with suspecte d healthcare-associated pneumonia as well as influenza B positive. The patient was given broad spect rum IV antibiotic coverage in addition to Tamiflu to complete a 5-day course. The patient was monito red and followed by the Critical Care Service given aggressive pulmonary supportive measures. The pa tient was slow to clinically improve; however, transitioned off mechanical ventilation to oxygen supp lementation by nasal cannula. The patient was noted with Enterococcus bacteremia and placed on appro priate IV antibiotic coverage after consultation with Infectious Disease service. The patient underw ent extensive evaluation to assess source of the Enterococcus species with questionable vegetations n oted on the anterior leaflet of the mitral valve. The patient underwent a right upper extremity PICC line placement with recommendations for ongoing ampicillin and Rocephin for suspected mitral valve e ndocarditis. The patient was also evaluated due to indwelling suprapubic catheter with polymicrobial urinary tract infection likely carrier state. The patient received general supportive measures thro ughout the hospital course and was noted with severe deconditioning needing maximal assistance with t ransfers and short distance ambulation with a rolling walker. Due to the patient's overall severe de conditioning and multiple comorbid status and high fall risk, the patient was deemed an appropriate c andidate for ongoing skilled care at [place]. The patient has been approved and will transition to [facility] on 07/29/2017. Overall, the patient's clinical condition is tenuous given multiple comorbid status and high likelihood for clinical decompensation. The patient clinically stable currently and ready to transfer on 07/29/2017. DISCHARGE MEDICATIONS: 1. Tylenol #3 300 mg/30 mg 1-2 tabs p.o. q.4-6 hours p.r.n. pain. 2. Ampicillin 2 grams IV q.4 hours until 09/03/2017. 3. Rocephin 2 grams IV daily until 09/03/2017. 4. Enteric coated aspirin 81 mg 1 tab p.o. daily. 5. Coreg 12.5 mg b.i.d. 6. Plavix 75 mg one tab p.o. daily. 7. Lasix 40 mg p.o. b.i.d. x3 days, followed by 40 mg p.o. daily. 8. Mucinex ER 1200 mg p.o. q.12 hours. 9. Humulin R sliding scale. 10. DuoNeb 3 mL nebulized q.6 hours p.r.n. 12. Florastor 250 mg p.o. daily. 13. Entresto 49/51 mg 1 tab p.o. b.i.d. 14. Aldactone 25 mg p.o. q.a.m. FOLLOWUP: Patient will follow up with Dr. Tico Flores, primary care provider after discharge from [facility]. The patient will follow up with Dr. Raygoza with Cardiology Ser vice. Patient will follow up with Dr. Gideon Guillen with Urology service. CONDITION ON DISCHARGE: Fair. ACTIVITY: Rolling walker with standby/contact guard assistance. General fall risk precautions. DIET: Heart healthy with nectar thick and pureed. CODE STATUS: FULL. DISPOSITION: Discharged to [facility], 07/29/2017. Total time preparing and coordinating discharge is 42 minutes.
[2017-07-29] MEDS: cefTRIAXone\\ROCEPHIN 2 GM in Sodium Chloride 0.9% 100 ML IVPB SCH (13:43)
[2017-07-29 16:05] VITALS: BP 109/62; TEMP 96.9
== END 2017-07-29 16:26 | disposition swing bed (61) | DRG 871 ==
LOC: ERS 14:40 → CCU 19:52 → IMCU/EMU 07-23 14:11 → 2SE 07-26 10:39
PROVIDERS: ADMIT Internal Medicine; ATTEND Internal Medicine
PROC: 5A1935Z Respiratory Ventilation, Less than 24 Consecutive Hours (ICD-10-PCS; principal; 2017-07-14)
PROC: 0BH17EZ Insertion of Endotracheal Airway into Trachea, Via Natural or Artificial Opening (ICD-10-PCS; 2017-07-14)
PROC: 02HV33Z Insertion of Infusion Device into Superior Vena Cava, Percutaneous Approach (ICD-10-PCS; 2017-07-14)
PROC: 0T2BX0Z Change Drainage Device in Bladder, External Approach (ICD-10-PCS; 2017-07-16)
PROC: B24BZZ4 Ultrasonography of Heart with Aorta, Transesophageal (ICD-10-PCS; 2017-07-20)
PROC: 0W9B3ZX Drainage of Left Pleural Cavity, Percutaneous Approach, Diagnostic (ICD-10-PCS; 2017-07-21)
PROC: 02HV33Z Insertion of Infusion Device into Superior Vena Cava, Percutaneous Approach (ICD-10-PCS; 2017-07-22)
DX: A41.81 Sepsis due to Enterococcus (principal); J96.02 Acute respiratory failure with hypercapnia; J10.08 Influenza due to other identified influenza virus with other specified pneumonia; G93.41 Metabolic encephalopathy; I50.23 Acute on chronic systolic (congestive) heart failure; J13 Pneumonia due to Streptococcus pneumoniae; N17.9 Acute kidney failure, unspecified; J90 Pleural effusion, not elsewhere classified; C92.10 Chronic myeloid leukemia, BCR/ABL-positive, not having achieved remission; J96.21 Acute and chronic respiratory failure with hypoxia; I13.0 Hypertensive heart and chronic kidney disease with heart failure and stage 1 through stage 4 chronic kidney disease, or unspecified chronic kidney disease; E44.1 Mild protein-calorie malnutrition; I24.8 Other forms of acute ischemic heart disease; L97.819 Non-pressure chronic ulcer of other part of right lower leg with unspecified severity; L97.829 Non-pressure chronic ulcer of other part of left lower leg with unspecified severity; T83.510A Infection and inflammatory reaction due to cystostomy catheter, initial encounter; N39.0 Urinary tract infection, site not specified; D69.6 Thrombocytopenia, unspecified; N18.3 Chronic kidney disease, stage 3 (moderate); R65.20 Severe sepsis without septic shock; E87.5 Hyperkalemia; Y95 Nosocomial condition; N40.1 Benign prostatic hyperplasia with lower urinary tract symptoms; R33.8 Other retention of urine; Z95.810 Presence of automatic (implantable) cardiac defibrillator; I83.018 Varicose veins of right lower extremity with ulcer other part of lower leg; I83.028 Varicose veins of left lower extremity with ulcer other part of lower leg; M17.12 Unilateral primary osteoarthritis, left knee; M16.12 Unilateral primary osteoarthritis, left hip; C61 Malignant neoplasm of prostate; I25.5 Ischemic cardiomyopathy; Y84.6 Urinary catheterization as the cause of abnormal reaction of the patient, or of later complication, without mention of misadventure at the time of the procedure; I08.1 Rheumatic disorders of both mitral and tricuspid valves; I48.2 Chronic atrial fibrillation; S27.1XXD Traumatic hemothorax, subsequent encounter; W19.XXXD Unspecified fall, subsequent encounter; S22.42XD Multiple fractures of ribs, left side, subsequent encounter for fracture with routine healing
CPT/HCPCS: 31500; 36415; 36416; 36556; 36569; 70450; 71045; 72170; 80048; 80053; 80162; 81003; 81015; 82140; 82150; 82533; 82553; 82805; 82945; 83605; 83615; 83690; 83735; 83880; 84100; 84157; 84443; 84478; 84484; 85025; 85610; 85730; 87040; 87070; 87077; 87086; 87116; 87149; 87186; 87205; 87206; 87804; 88112; 88305; 89051; 93005; 93306; 93312; 94002; 94003; 94640; 94660; 94760; 96361; 96365; 96368; 96375; A4216; C1751; G8978-GP-CL; G8979-GP-CJ; G8996-GN-CK; G8997-GN-CJ; J0290; J0696; J0744; J1642; J1644; J1650; J1815; J1940; J1956; J2001; J2060; J2185; J2270; J2704; J3010; J3370; J7050; J7620; S0028

== ENCOUNTER 2017-08-01 07:53 | Day surgery (SDC) | payer MEDICARE, BC ==
[2017-08-01] MEDS ORDERED: Ampicillin 2 GM, Syringe 5.2 ML in Sterile Water 14.8 ML SLOW IVP SCH (09:15)
--- NOTE | 2017-08-01 10:52 | OP ---
PREOPERATIVE DIAGNOSIS: Oropharyngeal dysphagia. PROCEDURE: After informed consent was obtained, the patient was placed in the left lateral decubitus position. Anesthesia was administered per the Anesthesia Department. Forward-viewing endoscope was inserted into the esophagus under direct visualization with ease and passed to the second portion of the duodenum with ease. No mucosal abnormalities were noted. The area was prepped and draped in us ual manner. Anesthesia was applied with 1% lidocaine without epinephrine. A needle was inserted thr ough the abdominal wall into the gastric lumen on the first pass, the wire was passed, snared, and br ought out of the mouth. The PEG tube was attached and brought through the abdominal wall after a sma ll incision was made. Reinsertion of the endoscope showed the peg bumper to be in good position. ASSESSMENT: Successful percutaneous endoscopic gastrostomy. RECOMMENDATIONS: Begin tube feedings in 8 hours.
[2017-08-01] MEDS ORDERED: Propofol 200 MG/20 ML VIAL ONE (13:45)
[2017-08-01] MEDS ORDERED: Lidocaine 1% PF 5 ML VIAL ONE (13:45)
== END 2017-08-01 11:30 | disposition home or self-care (01) ==
LOC: SDC 07:53
PROVIDERS: ATTEND Internal Medicine Gastroenterology
PROC: 0DH63UZ Insertion of Feeding Device into Stomach, Percutaneous Approach (ICD-10-PCS; principal; 2017-08-01)
DX: R13.12 Dysphagia, oropharyngeal phase (principal); I48.91 Unspecified atrial fibrillation; N18.9 Chronic kidney disease, unspecified; I50.9 Heart failure, unspecified; C61 Malignant neoplasm of prostate
CPT/HCPCS: A4216; J0290; J2001; J2704

== ENCOUNTER 2017-08-02 14:23 | Inpatient (IN) | payer MEDICARE, BC ==
[2017-08-02 15:40] LABS: Hemoglobin 12.1 g/dL (14.0-18.0); Mean Corpuscular HGB CONC 30.5 g/dL (32.0-36.0); Mean Platelet Volume 10.2 fL (7.4-10.4); Platelet Count 65 thou/uL (130-400); RBC Distribution Width 16.9 % (11.5-14.5); Red Blood Cell (RBC) Count 3.68 mill/uL (4.70-6.10); White Blood Cell (WBC) Count 5.8 thou/uL (4.8-10.8)
[2017-08-02 15:51] LABS: Lactic Acid 1.9 mmol/L (0.5-2.2)
[2017-08-02 15:54] LABS: ALT (SGPT) 17 U/L (8-55); AST (SGOT) 14 U/L (5-34); Albumin 2.6 g/dL (3.4-4.8); Alkaline Phosphatase 83 U/L (40-150); Anion Gap 13 mmol/L (10-20); BUN (Urea Nitrogen) 71 mg/dL (8.4-25.7); Calc. Creatinine Clearance 0 mL/min (70-130); Calcium 8.5 mg/dL (7.8-10.44); Carbon Dioxide 32 mmol/L (23-31); Chloride 108 mmol/L (98-107); Estimated GFR-MDRD 30; Globulin 3.1 g/dL (2.4-3.5); Glucose 150 mg/dL (83-110); Potassium 4.2 mmol/L (3.5-5.1); Protein, Total 5.7 g/dL (5.8-8.1); Sodium 149 mmol/L (136-145)
[2017-08-02 16:03] LABS: #Lymphocytes 0.3 thou/uL (1.20-3.40); #Monocytes 0.6 thou/uL (0.11-0.59); #Neutrophils 4.9 thou/uL (1.40-6.50); %Eosinophils 0.8 % (0.0-10.0); %Lymphocytes 5.9 % (21.0-51.0); %Monocytes 9.5 % (0.0-10.0); %Neutrophils 83.8 % (42.0-75.0); Anisocytosis SLIGHT = 6-15 cells (100X) (0-5/hpf); Hypochromia SLIGHT = 6-15 cells (100X) (0-5/hpf); MDiff Complete? YES; Macrocytosis SLIGHT = 6-15 cells (100X) (0-5/hpf); PLT Morphology Comment Appears Decreased
[2017-08-02 16:17] LABS: Bilirubin Negative (Negative); Blood, Urine Large (Negative); Clarity CLOUDY (Clear); Glucose, Urine (Dipstick) Negative (Negative); Leukocyte Large (Negative); Nitrite Negative (Negative); Protein, Urine (Dipstick) 100 mg/dL (Neg-Trace); Specific Gravity, Urine 1.026 (1.002-1.036)
[2017-08-02 16:19] LABS: Bacteria/HPF None Seen HPF (None Seen); Hyaline Casts/LPF 7-10 HYALINE CAST LPF (0-3 Hyaline); RBC/HPF GREATER THAN 50-TNTC HPF (0-3); Squamous Epithelial 0-3 HPF (0-3)
--- NOTE | 2017-08-02 17:05 | CT ---
CT HEAD NONCONTRAST: History: Altered mental status. Comparison: 07-14-17 FINDINGS: There is no evidence of acute intracranial hemorrhage or infarct. Diffuse cortical atrophy and chroni c ischemic small vessel disease are similar in appearance to the previous exam. There is no mass effe ct or shift of midline structures. IMPRESSION: No acute intracranial abnormalities are demonstrated on noncontrast CT head. POS: [facility]
[2017-08-02] MEDS ORDERED: HumaLOG 300 UNITS/3 ML VIAL SC PRN (18:30)
[2017-08-02] MEDS ORDERED: Dextrose 50% Abboject 50 ML SYRINGE SLOW IVP PRN (18:30)
[2017-08-02] MEDS ORDERED: Dextrose 5% in Water 1,000 ML IV PRN (18:30)
[2017-08-02] MEDS ORDERED: Ondansetron HCl/PF 4 MG/2 ML Vial IVP PRN (18:30)
[2017-08-02] MEDS ORDERED: Furosemide 40 MG/4 ML VIAL SLOW IVP SCH (18:45)
--- NOTE | 2017-08-02 19:25 | HP ---
PRIMARY CARE PHYSICIAN: Rebel Knapp M.D. SHIFT SUPERVISOR MELTING: Estrada Owens M.D. CHIEF COMPLAINT: Large pleural effusion and confusion. HISTORY OF PRESENT ILLNESS: The history of present illness is taken primarily from the patient's wif e who is at the bedside as the patient is more or less confused and unable to give me any history. T he patient's history is a bit complex. The patient was recently admitted to our facility with acute on chronic respiratory failure, which he developed as a consequence of influenza B as well as a healt hcare-associated pneumonia. He wound up needing to be intubated. Also, during that admission, he wa s found to have Enterococcus faecalis endocarditis, in which he is on ampicillin and Rocephin until 0 09/03/2017. It is also the source could have been from a urinary tract infection as he has urinary re tention and requires a suprapubic catheter and he needs to have the suprapubic catheter replaced ever y week. The patient was treated and was severely deconditioned and then transitioned to inpatient re habilitation. He had been having difficulty with swallowing and had a PEG tube placed yesterday. Hi s noted that he seemed a bit confused and not his usual self and she told this to the nursing st aff at the rehabilitation unit. They got a chest x-ray and noted that he had a large pleural effusio n on the left and he was transferred back to the emergency room here in order to have this "drained." Currently, the patient is very weak and confused. He says that he knows he is in [facility]. H e is unable to tell me the date or the month. He gets very tired and says that the only thing he wan ts is just to drink water. Otherwise, most of what he says is not following the current conversation . REVIEW OF SYSTEMS: Again unobtainable. PAST MEDICAL HISTORY: Significant for atrial fibrillation. He has had a Watchman's device. 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 FAMILY HISTORY: Significant for diabetes mellitus. ALLERGIES: No known drug allergies. SOCIAL HISTORY: He is a FULL CODE. He had been living at home with his . 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 He is a nonsmoker and nondrinker. CURRENT MEDICATIONS: Include Tylenol #3 p.r.n., ampicillin 2 grams IV q.4 hours until 09/03/2017, as pirin 81 mg daily, carvedilol 12.5 mg twice a day, Rocephin 2 grams daily until 09/03/2017, Plavix 75 mg every day, Pepcid 20 mg twice daily, Lasix 40 mg daily, Mucinex 1200 mg q.12 hours, DuoNeb p.r.n. , Florastor 250 mg daily, and Entresto 49/51 twice a day, and Aldactone 25 mg daily. PHYSICAL EXAMINATION: GENERAL: The patient is a bit lethargic, drowsy. VITAL SIGNS: Blood pressure is 109/63, heart rate is 71, respiratory rate of 18, and temperature is 96.3. HEENT: His pupils are equal, round, and reactive. Extraocular muscles are intact. Throat: His muc ous membranes are dry. NECK: He did have some increase in jugular venous distention. LUNGS: He has got rales bilaterally and decreased breath sounds on the left. CARDIOVASCULAR: He has a normal S1, S2. I did not appreciate an S3 or S4. No murmurs, clicks or ru bs. ABDOMEN: Obese, it is soft. He had some mild diffuse tenderness. There is no rebound or guarding. EXTREMITIES: He has got diffuse edema. NEUROLOGIC: The exam is nonfocal. LABORATORY DATA: His white blood cell count 5.8, hemoglobin 12.1, hematocrit 39.8, platelet count wa s 65. His sodium is 149, potassium is 4.2, chloride is 108, CO2 is 32, BUN is 71, and creatinine is 2.12. Urine was significant for too numerous to count wbc's and large blood. ASSESSMENT AND PLAN: This is an 82-year-old gentleman, who presents with confusion and a large left pleural effusion. It is unclear whether or not there is an underlying infiltrate. He also has a his tory of chronic systolic heart failure as well as atrial fibrillation. The patient will need to be a dmitted, preferably to the IMCU or possibly even ICU as the patient is a FULL CODE and his current st atus is fairly tenuous. Pulmonology has been consulted due to the large pleural effusion, it is poss ible that he may need a thoracentesis. 1. Acute on chronic systolic heart failure. It is possible that the pleural effusion is related to congestive heart failure. He does have a fairly low ejection fraction. We will get a BNP to help us to assess this and also consider giving him some IV Lasix in the interim. 2. History of Enterococcus endocarditis. We will continue ampicillin and Rocephin as he has been pr eviously obtaining. 3. The patient has an acute on chronic kidney disease with his creatinine being 2.12. It appears hi s baseline creatinine was approximately 1.3 on his previous admission. This could be mediated by eit her sepsis or could be cardiorenally mediated. Once we determine if he is in heart failure with the treatment of this, hopefully his renal function should improve and if not then Nephrology consultatio n would be warranted. 4. History of prostate cancer and chronic urinary retention. He is scheduled to have a replacement of the suprapubic catheter on tomorrow. This was to be done by Dr. Guillen. We will put in a consult for Urology and if he is clinically stable, hopefully this can be pursued. The patient's overall pro gnosis is very poor due to his multiple comorbidities as well as advanced age. This was communicated to the patient's at the bedside during the admission process.
[2017-08-02] MEDS: Sacubitril 49 MG/Valsartan 51 MG TABLET PER TUBE SCH (20:40)
[2017-08-02] MEDS: Ampicillin 2 GM, Syringe 5.2 ML in Sterile Water 14.8 ML SLOW IVP SCH (20:53)
[2017-08-02] MEDS ORDERED: Ampicillin 2 GM VIAL SLOW IVP SCH (21:00)
[2017-08-03] MEDS: Ampicillin 2 GM, Syringe 5.2 ML in Sterile Water 14.8 ML SLOW IVP SCH ×6 (01:22→21:19)
--- NOTE | 2017-08-03 05:43 | CON ---
DATE OF CONSULTATION: 08/02/2017 HISTORY OF PRESENT ILLNESS: Mr. Alvraez is a very pleasant 82-year-old gentleman. Unfortunately, he has been into slow slide for several weeks to several months. He has cardiomyopathy. He was recently thought to possibly have endocarditis. He had Enterococcus grew out of 2 blood cultures. He has a suprapubic catheter , so he had multiple organisms grew out of his urine as expected. He had an abnormal transesophageal echo. Because the physicians could not conclusively say he did not have endocarditis. He has been treated for this. The Enterococcus is pansensitive. He has been over at [facility] for several days. He recently underwent a thoracentesis by Dr. Owens. The pleural fluid had a protein of 1.9 and LDH of 120. There were 11,000 red cells (he had fallen on that side). He only had 4000 white cells. Pleural fluid cultures were negative. He has a known systolic cardiomyopathy. He was sent back over here because of an abnormal radiograph today. He was discharged here only 4 days ago. PAST MEDICAL HISTORY: 1. Remarkable for having a decortication in the past when he was a young man. 2. History of influenza recently. 3. History of an ejection fraction of 20-25%. 4. History of chronic kidney disease. 5. History of chronic myelocytic leukemia treated with Gleevec when it first came out. 6. History of atrial fibrillation. 7. Status post Watchman procedure. 8. History of chronic lower extremity edema. 9. History of prostate cancer who is because of his clinical condition not operable. He has a suprapubic catheter in place. 10. History of recurrent falls. 11. History of a decline in physical condition in spite of presence in the rehab and while he was here. 12. History of a thyroglossal duct surgery. 13. History of hemorrhoidectomy. 14. History of surgery of his uvula in the past. 15. History of defibrillator placement. He recently had a new defibrillator placed. 16. History of AV node ablation. He is paced now. SOCIAL HISTORY: He is a nonsmoker, nondrinker, but he has never used drugs. FAMILY HISTORY: Non contributory ALLERGIES: He has no drug allergies. MEDICATIONS: Have been reviewed. REVIEW OF SYSTEMS: 12 point system review otherwise negative remarkable only for some mild shortness of breath. PHYSICAL EXAMINATION: VITAL SIGNS: He is afebrile, heart rate 76, respiratory rate is 20, oximetry is 99 on 2 liters, blood pressure 111/55. GENERAL: He is extremely cachectic appearing. He has temporal muscle wasting. HEENT: He has no cervical lymphadenopathy. RESPIRATORY: He has absent breath sounds 2/[address] on the left. He has coarse rhonchi diffusely. He is clearing his throat. I suspect he is aspirating saliva. HEART: Regular rhythm. S1 and S2 are normal. He has grade 2/6 systolic murmur. ABDOMEN: Soft. He has PEG tube is in place. No drainage around this. He has a nontender abdomen. EXTREMITIES: Remarkable for edema with stasis changes and scattered ecchymoses. He actually has intercostal muscle wasting to such a degree that he is concave between his ribs. LABORATORY DATA: His white count 5.8, hemoglobin 12.1, platelets 65,000. Sodium 149, potassium 4.2, chloride 108, bicarbonate 32, BUN 71, creatinine 2.12. Chest radiograph shows large left effusion. IMPRESSION: 1. Large left effusion. Compared this to a film several days back, it is a poor quality rotated film. I will repeat an upright film in the morning. Change in the film could be explained by retained secretions and atelectasis in the left lung because of this. There is no urgent need for thoracentesis at that time. At this time, I will start with nebulizer treatments and actually put him on BiPAP tonight for some muscle rest. He has multiple medical problems with a biggest problem he faces is severe protein-calorie malnutrition and muscle wasting. I spent approximately 30 minutes with the sitting at the bedside discussing treatment options. I have recommended to her that he be a do not resuscitate patient and I recommend that she never intubate him, allowing him to be intubated or cardioverted. She actually is in favor of this decision, but wants to discuss it with3 boys. I really truly believe he has become too weak to recover, although as I have explained to her I hope I am wrong. BiPAP, nebulizer treatments and perhaps some IV Lasix and repeat radiograph in the morning. We will give this through the night. I just do not think he can rehab out of this degree of weakness. This is a 70- minute consult greater than 50% of the time was spent with the family taking additional history and coordinating the care on the unit. RANDA
[2017-08-03 06:16] LABS: #Eosinphils 0.1 thou/uL (0.0-0.7); #Lymphocytes 0.5 thou/uL (1.20-3.40); #Monocytes 0.6 thou/uL (0.11-0.59); #Neutrophils 5.8 thou/uL (1.40-6.50); %Eosinophils 0.9 % (0.0-10.0); %Lymphocytes 7.3 % (21.0-51.0); %Monocytes 8.5 % (0.0-10.0); %Neutrophils 83.3 % (42.0-75.0); Hemoglobin 11.8 g/dL (14.0-18.0); Mean Corpuscular HGB CONC 30.8 g/dL (32.0-36.0); Mean Corpuscular Hemoglobin 33.2 pg (27.0-31.0); Mean Platelet Volume 11.1 fL (7.4-10.4); Platelet Count 65 thou/uL (130-400); Red Blood Cell (RBC) Count 3.56 mill/uL (4.70-6.10)
[2017-08-03 06:26] LABS: Anion Gap 14 mmol/L (10-20); BUN (Urea Nitrogen) 71 mg/dL (8.4-25.7); Calc. Creatinine Clearance 38 mL/min (70-130); Calcium 8.7 mg/dL (7.8-10.44); Carbon Dioxide 32 mmol/L (23-31); Chloride 110 mmol/L (98-107); Estimated GFR-MDRD 31; Glucose 123 mg/dL (83-110); Sodium 151 mmol/L (136-145)
--- NOTE | 2017-08-03 08:00 | PDOC.PN ---
- Subjective Encounter Start Date: 08/03/17 Encounter Start Time: 07:59 Mr. Alvarez appears very Fatigued. He is able to answer a question or two, but is voice is very weak. - Objective Resuscitation Status: Resuscitation Status FULL:Full Resuscitation MAR Reviewed: Yes Vital Signs & Weight: Vital Signs (12 hours) Temp Pulse Resp BP Pulse Ox 08/03/17 07:50 97.9 F 70 22 H 113/58 L 100 08/03/17 07:18 99 08/03/17 07:16 70 19 99 08/03/17 04:05 97.3 F L 74 18 123/57 L 100 08/03/17 02:26 98 08/03/17 00:27 97.6 F 70 26 H 108/53 L 98 08/03/17 00:00 98 08/02/17 22:25 99 08/02/17 22:24 99 08/02/17 20:40 95.9 F L 70 28 H 100 08/02/17 20:36 95.9 F L 70 28 H 120/55 L 100 08/02/17 20:03 70 13 100 08/02/17 20:01 70 37 H 100 Weight Weight 210 lb 7 oz I&O: 08/02/17 08/03/17 08/04/17 06:59 06:59 06:59 Intake Total 0 Output Total 950 Balance -950 Result Diagrams: 08/03/17 05:30 08/03/17 05:30 Additional Labs: Accuchecks 08/03/17 08/03/17 08/02/17 05:38 00:04 19:16 POC Glucose 112 H 135 H 118 H Phys Exam - Physical Examination HEENT: PERRLA decreased breath sounds on the left side, and scattered rales Cardiovascular: RRR, no significant murmur, no rub Gastrointestinal: soft, positive bowel sounds Musculoskeletal: edema present gerenalized edema, and briusing, Dx/Plan (1) Recurrent pleural effusion on left Code(s): J90 - PLEURAL EFFUSION, NOT ELSEWHERE CLASSIFIED Status: Acute (2) Ijqwb-wr-fdytgri kidney injury Code(s): N17.9 - ACUTE KIDNEY FAILURE, UNSPECIFIED; N18.9 - CHRONIC KIDNEY DISEASE, UNSPECIFIED Status: Acute (3) Protein-calorie malnutrition, moderate Code(s): E44.0 - MODERATE PROTEIN-CALORIE MALNUTRITION Status: Acute (4) Acute and chronic respiratory failure Code(s): J96.20 - ACUTE AND CHR RESP FAILURE, UNSP W HYPOXIA OR HYPERCAPNIA Status: Acute Qualifiers: Respiratory failure complication: hypoxia Qualified Code(s): J96.21 - Acute and chronic respiratory failure with hypoxia Comment: Resolved with pulm support (5) Endocarditis of mitral valve Code(s): I05.8 - OTHER RHEUMATIC MITRAL VALVE DISEASES Status: Acute Comment : Continue Ampicillin and Rocephin until 09/03/17 (6) Acute on chronic systolic heart failure Code(s): I50.23 - ACUTE ON CHRONIC SYSTOLIC (CONGESTIVE) HEART FAILURE Status : Acute - Plan * Large Left Pleural Effusion, possibly due to an Exacerbation of Chronic systolic heart failure- He was given a dose of Lasix last night * Continue supplemental Oxygen * Hypernatremia- will add hypotonic saline * Acute renal failure- paige monitor- may need Nephrology consult * Enterococcus Endocarditis- Continue Ampicillin and Rocephin * History of Prostate cancer, with chronic suprapubic Catheter- he was scheduled to have this replaced today- will consult Dr. Guillen * His overall Prognosis is very poor due to his extreme deconditioning, protein calorie malnutrition, and multiple Co-morbid medical conditions, and advanced age. .
--- NOTE | 2017-08-03 08:37 | RAD ---
1 VIEW CHEST: Date: 08/03/17 HISTORY: Congestive heart failure. COMPARISON: 08/02/17. FINDINGS: Portable semiupright chest radiograph demonstrates persistent opacification of left hemithorax. Subop timal evaluation of the cardiac silhouette. Stable aeration of the right lung. No definite pneumothor ax. IMPRESSION: No significant interval change. POS: [facility]
[2017-08-03 09:28] LABS: Fluid, Triglycerides 20 mg/dL (Not Available); Pleural Fluid, Amylase Less than 30 U/L (Not Available); Pleural Fluid, Glucose 133 mg/dL; Pleural Fluid, LDH 113 U/L (Not Available); Pleural Fluid, Protein 1.5 g/dL
--- NOTE | 2017-08-03 09:53 | OP ---
DATE OF PROCEDURE: 08/03/2017 SURGEON: Dr. Estrada Owens PROCEDURE: Thoracentesis. INDICATION: Pleural effusion, left massive. Discussed with the family. After informed consent, the left posterior thorax was cleaned with chlorh exidine. 1% Xylocaine infiltrated in the left ninth intercostal space in the mid posterior axillary line. The pleural cavity was entered in and initially 20 mL of slightly turbid sanguineous fluid was removed. Thereafter, using an 8 Setswana catheter, a total of 2000 mL was removed without difficulty. Pleural effusion sent for appropriate studies including cytology and culture. Patient tolerated th e procedure well. I am going to get Palliative Care to see the patient. Continue IV fluids slowly. Further recommendations after above.
[2017-08-03] MEDS: Sodium Chloride 0.45% 1,000 ML IV SCH ×2 (10:16→20:00)
[2017-08-03] MEDS: Famotidine/PF 20 mg/2ml Vial SLOW IVP SCH (10:46)
[2017-08-03] MEDS: Enoxaparin Sodium 30 MG/0.3 ML SYRINGE SC SCH (10:47)
[2017-08-03] MEDS: Aspirin 81 mg Enteric Coated Tablet PER TUBE SCH (10:48)
[2017-08-03] MEDS: Saccharomyces boulardii 250 MG CAP PER TUBE SCH (10:48)
[2017-08-03] MEDS: Sacubitril 49 MG/Valsartan 51 MG TABLET PER TUBE SCH (10:48)
[2017-08-03] MEDS: Clopidogrel Bisulfate 75 MG TAB PER TUBE SCH (10:48)
--- NOTE | 2017-08-03 11:04 | RAD ---
ONE VIEW CHEST: HISTORY: Status post thoracentesis. COMPARISON: 08/03/17 at 5:13 a.m. FINDINGS: Portable upright chest radiograph demonstrates interval aspiration of a left-sided pleural effusion. There is a trace amount of left-sided pleural fluid still present. Definite pneumothorax is not tayler reciated. Stable aeration of the right lung. Stable configuration of the cardiac silhouette. Ather osclerosis is redemonstrated. Stable right-sided PICC line. IMPRESSION: 1. Interval left-sided thoracentesis. Residual small left-sided pleural effusion does remain. 2. Improved aeration of the left lung. 3. No pneumothorax. POS: [facility]
[2017-08-03 11:32] LABS: Body Fluid Source THORACENTESIS FLD
[2017-08-03 11:34] LABS: BF Color Yellow; BF WBC/Nonhematics Ct. - Manua 5 /cumm; Clarity Clear (Clear); Tube # EDTA
[2017-08-03 11:44] LABS: BF RBC Count - Manual 250 /cumm
[2017-08-03] MEDS ORDERED: ISOVUE-370 76%-LOCM 1 ML ONE (13:25)
[2017-08-03] MEDS ORDERED: cefTRIAXone\\ROCEPHIN 2 GM VIAL IVPB SCH (14:00)
[2017-08-03] MEDS: cefTRIAXone\\ROCEPHIN 2 GM in Sodium Chloride 0.9% 100 ML IVPB SCH (14:24)
--- NOTE | 2017-08-03 14:27 | PDOC.EVN ---
Event Note - Event Note Event Note: I spoke with the patient' over the phone. After she spoke with Dr. Owens, and the Palliative Care team, she has decided to change her husbands code status to DNR.
--- NOTE | 2017-08-03 15:40 | PRG ---
DATE OF SERVICE: 08/03/2017 Clement Alvarez this morning is slightly encephalopathic. OBJECTIVE: VITAL SIGNS: Blood pressure 130/58, sats are on 2 liters, temperature 97. CHEST: Decreased breath sounds. LUNGS: Left lung unremarkable. CARDIAC: Normal S1, S2. No gallops. ABDOMEN: Soft. No masses. LABORATORY DATA: White count 7000, H and H 9 and 38, platelet count is 65. His creatinine is 2, BUN 71. Sodium 151. He is prerenal. X-ray shows new left pleural effusion, large, shift of the mediastinum. This is more than likely hem othorax. IMPRESSION: 1. Previous urinary tract infection sepsis. 2. Thrombocytopenia. 3. Congestive heart failure. PLAN: Hold Lasix. He is clearly prerenal. He is dry. He has had a PEG placed in. Continue nutrit ion, PT, and supportive care. I am going to do a repeat thoracentesis. If it is bloody, may conside r insertion of a small bore chest tube. Family states he is still a FULL CODE.
--- NOTE | 2017-08-03 16:27 | RAD ---
SINGLE VIEW OF THE ABDOMEN: Indication: NG tube placement. IMPRESSION: The tip of the NG tube is seen within the gastric fundus. POS: [facility]
--- NOTE | 2017-08-03 17:23 | CON ---
DATE OF CONSULTATION: 08/03/2017 REASONS FOR CONSULTATION: 1. Indwelling suprapubic tube. 2. Abnormal urinalysis from suprapubic tube. 3. Altered mental status. HISTORY OF PRESENT ILLNESS: Mr. 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 This is the patient's usual presentation when he has a sepsis episode , but the pleural effusion is a new feature. The patient does have an indwelling suprapubic tube, wh ich I changed on the last visit I had with him well in an intensive care unit here at [facility] on his last admission on 07/23/2017. Urinalysis and culture has been obtained fro m that and urinalysis has typical findings for an indwelling suprapubic tube, but also same type of f indings as one would see with an infection. The tube was not changed prior to obtaining the culture from the report that I have received and appe ars to be the same 20 Amharic catheter that I placed a little over a week ago. PHYSICAL EXAMINATION: VITAL SIGNS: Temperature is 97.6, pulse is 72, respirations 21, O2 saturation is 99% on 2 liters by nasal cannula and blood pressure is 108/54. 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 Overall, he appears to be very tired and is evaluated in the supine position in the [facility] care unit bed. His skin has multiple petechiae consistent with his use of Plavix. A quick exa m finds the patient's recently placed PEG tube missing. The patient's indwelling suprapubic tube rem ains in position. HEENT: The patient is not able to participate in formal exam. Sclerae, what I can see of them did n ot have any theory of icterus. The patient is not able to follow exam for extraocular movements. NECK: Supple. LUNGS: Notable for coarse breath sounds and gurgling heard bilaterally. CARDIOVASCULAR: The patient has a regular rhythm. ABDOMEN: Soft, obese and nontender. A former PEG tube site is seen in the left upper quadrant. The re are no gross peritoneal signs on examination. There is no oozing or bleeding at the former PEG tu be site. A suprapubic tube is present slightly to the right side of the midline in a typical suprapu bic location. A silicone catheter is present and this appears to be the one that I placed about a we ek ago. GENITOURINARY: Phallus is without lesion. Scrotum is benign. RECTAL: Digital rectal examination was not repeated. The patient is known to have prostate cancer a nd he is not a candidate for formal therapy at this point. EXTREMITIES: The patient has edema, which is at least 1+ in the bilateral lower extremities. SKIN: The patient has sacral decubitus, which is appropriately dressed. PAST MEDICAL HISTORY: 1. Cardiomyopathy with reduced ejection fraction. 2. AICD in place. 3. Watchman device placed. 4. Hypertension. 5. Renal insufficiency, at least stage 3. 6. History of chronic myelogenous leukemia. 7. Prostate cancer, currently untreated. 8. 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 9. Chronic atrial fibrillation. 10. 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 PAST SURGICAL HISTORY: 1. Thyroglossal duct excision. 2. Uvula surgery. 3. Right chest decortication. 4. AICD placement. 5. AV hiren ablation. 6. Watchman procedure. 7. Prostate needle biopsy. 8. Suprapubic tube placement. 9. Multiple changes of indwelling suprapubic tube. ALLERGIES: No known drug allergies. CURRENT MEDICATION LIST: Please see the patient's in-hospital chart. 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 He is a lifelong nonsmoker and is . He has a very attentive who remains at bedside. They ordinarily reside in [place]. He has recently been living in the [facility] for extended care purposes. LABORATORY STUDIES: The patient's urinalysis from 08/02/2017 from an old indwelling SP tube showed a urine gravity of 1.026, indicating dehydration. He had 100 mg/dL protein. There was a large amount of blood noted. Leukocyte esterase is noted at high. Microscopic urinalysis shows too numerous to count red cells and white cells and 7-10 hyaline casts. Urine culture remains pending at the time of this evaluation. Hematologic profile shows no outward signs of sepsis. The patient has a current white cell count of 7000 up from 5.8 thousand at admission. There is a left shift with 83% neutrophils. The patient's blood urea nitrogen is 71 with a creatinine of 2. Estimated GFR is 31. ASSESSMENT AND PLAN: 1. Concerns for urinary tract infection. The patient may well have microorganisms in his bladder; h owever, frequent changes of the SP tube will be the best way to fend of this. Normal colonization wi th non-illness producing bacteria are the norm. It is desirable to have non-multidrug resistant orga nisms in his SP tube. Essentially, this is a drained abscess, which should not be causing any of his problems. He did have microorganisms in his urine and blood on previous admissions. They were arturo elated in this case and infections can be related to the indwelling SP tube. I would discount any cu lture drawn from an indwelling SP tube as any hardware over a day or so is well colonized with natura l skin organisms. 2. Acute decompensation apparently secondary to the patient's left pleural effusion and his some apolonia oing multiorgan dysfunction. He had a lengthy talk with Mrs. Alvarez regarding her decision to place Mr. Alvarez on DNR status, which I fully support. 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 He is no longer cognitive to any major degree and is barely able to ma intain normal bodily functions. At some point, we discussed doing too much from a medical standpoint is actually harmful, I mean. 3. Prostate cancer. No need for intervention at the present time. 4. Indwelling suprapubic tube. I did go ahead and change this on visit today, which included the co mplete sterile prep and replacement of the existing SP tube. This is best means for maintaining adeq uate hygiene in this patient. At the present time, I think it would be appropriate to change the cat heter every 2 weeks or so. If he is developing problems, the frequency can be increased weekly. If he is not having problems with the 2-week changes, then that could be stretched out for upto 30 days. Over 70 minutes consultation time was spend in the evaluation and assessment of this patient while on this initial evaluation in hospital.
--- NOTE | 2017-08-03 19:46 | CT ---
CT ABDOMEN AND PELVIS: Date: 08-03-17 Comparison: None. History: Peritonitis, due to removal. Technique: Serial axial CT imaging obtained at 5 mm intervals from the lung bases through the pubic s ymphysis with IV and oral contrast. Coronal reformatted imaging obtained. FINDINGS: Small incompletely imaged pleural effusions are present. The heart appears enlarged with a multi-lead partially imaged transvenous pacing device present. There is atherosclerotic calcification of the co ronary arteries. There is partial consolidation/collapse of the left lower lobe and there are reticular nodular densit ies noted within the right lower lobe. Findings suggest infectious pneumonitis. No free intraperitoneal air is evident. A percutaneous cystostomy tube is in place.. Arterial phase i maging limits detailed assessment of the viscera. A nasogastric tube extends into the gastric body. T here is small volume high density material within the gallbladder lumen suggesting sludge and/or smal l stones. The liver and spleen are grossly unremarkable. Nonspecific small volume free fluid is seen in the perisplenic and perihepatic regions. Adrenal glands and kidneys demonstrate no acute findings. There is small volume nonspecific free fluid in the pelvis, including the presacral space. There is a degree of anasarca noted, with diffuse stranding of the subcutaneous fat throughout the abdomen/pelv is. No evidence for obstruction of the large or small bowel noted. Scattered atherosclerotic calcification of the abdominal aorta and its branches noted. No evidence for an abdominal or pelvic abscess. No lymphadenopathy in the abdomen or pelvis noted. Os seous structures appear demineralized and demonstrate osseous fusion at the level of the sacroiliac j oints and degenerative changes of bilateral hips in the pubic symphysis. Multilevel degenerative mckeon ge is seen within the spine with bilateral lower lumbar spine facet hypertrophic changes and multilev el disc space narrowing. IMPRESSION: 1. No free intraperitoneal air, evidence of small bowel obstruction, or intraabdominal/intrapelvic ab scess. 2. Pleural and parenchymal opacity within both lung bases, left greater than right, which may signify infectious pneumonitis/aspiration and/or pulmonary edema. 3. Evidence of anasarca. 4. Nonspecific small volume free fluid within the abdomen/pelvis. POS: [facility]
--- NOTE | 2017-08-03 20:02 | CON ---
DATE OF CONSULTATION: 08/03/2017 CONSULTING PHYSICIAN: Dr. Zane Sanderson. REASON FOR CONSULTATION: Patient removed PEG tube, possible gastric perforation. HISTORY OF PRESENT ILLNESS: Patient is an 82-year-old white male. He is currently resting in the in [facility] care unit, appears to be very frail. He has rattled breathing and has difficulty coughing , well enough to clear his own airway. He was recently hospitalized with complications of flu and pneumonia. Two days ago (on Thursday), a PEG tube was placed by Dr. Hatch secondary to findings, the patient was aspirating his oral contents. He returned to the intermediate that day and PEG tube utilization was initiated. On Thursday, yesterd ay, he was brought back to the hospital as he appeared to be confused and a chest x-ray had revealed a large pleural effusion. He is placed in the Intermediate Care Unit. I am told that last night, he was somewhat agitated and perhaps confused and he apparently pulled off his PEG tube out, it is an unwitnessed event sometime around between 9:00 and 10:00 last night. Hieu enriquez, the hospitalist whom he was admitted requested a routine consult Gastroenterology regarding this. In some fashion, the consult was advanced to Dr. Sanderson, who notified me of this patient. I pr esented to see him at about 5:30 p.m. today. Currently, the patient is very weak and somewhat confused. He denies any particular pain. His is present at bedside and is very articulate and knowledgeable. Patient currently does have a nasoga stric tube down. As I arrived, contrast has been administered for the purposes of a CT scan of his a bdomen. PAST MEDICAL HISTORY: 1. Atrial fibrillation. 2. Congestive heart failure with low ejection fraction of 20% to 25%. 3. Chronic kidney disease with a creatinine this morning of 2.0. 4. History of endocarditis and prostate cancer. PAST SURGICAL HISTORY: 1. Had a watchman procedure performed. 2. Biventricular defibrillator. 3. Lung decortication due to empyema. 4. PEG tube placement on Thursday, the . ALLERGIES: No known drug allergies. MEDICATIONS: As indicated in his electronic medical record. PHYSICAL EXAMINATION: VITAL SIGNS: He is currently afebrile, pulse is 70, blood pressure is 108/50, his oxygen saturation is 99% on 2 liters nasal cannula. LUNGS: Have a rattle sound. He has difficulty clearing his upper airway by coughing. ABDOMEN: Mildly to moderately tender and it is difficult to have him localized. He has got a wound healing in his left upper abdomen, where his PEG tube was removed. Bowel sounds are present and norm oactive. LABORATORY DATA: His CBC is stable with a white blood cell count of 7, hemoglobin 11.8, platelet cou nt is 65. His chemistry shows abnormal electrolytes with elevated sodium and chloride. As mentioned , his creatinine is elevated at 2.0. X-RAYS: CT scan this evening reveals significant left lower lobe pneumonia and some mild residual pl eural effusion. He has some ascites within his abdomen. There is no evidence of extraluminal contra st that I can discern indicating that there is likely no acute gastric leak from his PEG tube. The d efect is left abdominal wall from his PEG tube is visible. ASSESSMENT: Patient who removed his own PEG tube last night. For now, most reasonable course will l ikely be to continue his IV antibiotics and observe him. Nasogastric tube is in and this will be to suction. He is certainly a candidate for placing another PEG tube. It is also at risk for pulling t hat out as well. He currently has DNR status. I spoke with his regarding options and explained laparoscopy could be performed to wash out his abdomen to make sure that there is no evidence of any peritonitis perhaps resulting from his PEG tube removal. That being said, I am not certain that he would tolerate general anesthesia and would survive being intubated. His strongly agrees and wa nts to avoid surgery and agrees with observation at this time. I have also discussed this case with Dr. Sanderson. Consideration of PEG tube will be per the hospitalist and government affairs manager.
--- NOTE | 2017-08-04 00:33 | CON ---
DATE OF CONSULTATION: 08/03/2017 REASON FOR CONSULTATION: Dysphagia, removal of PEG tube. CONSULTING PHYSICIAN: Caleb Rand MD HISTORY OF PRESENT ILLNESS: The patient is an 82-year-old male with past medical history of atrial f ibrillation, CHF with an ejection fraction of 20-25%, chronic kidney disease, CML, status post Gleeve c in remission, E. faecalis endocarditis, prostate cancer and dysphagia with recent PEG tube placed o n 08/01/2018 initially presenting with altered mental status and removal of PEG tube. 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 After being sent back to a [facility] ([facility]), he was noted by his to be not at his baseline worrisome for recurrent d isease. He was subsequently taken back to the [facility] where he was noted to have a large left pleural effusion, which was felt to be contributing to his change in mental status. However, on the night of 08/02/2017, he inadvertently removed his PEG tube. No attempts were made to replace the PEG tube with the Gastroenterology service notified at approximately 2:00 p.m. on 08/03/2017. At the cu rrent time, the patient appears very frail and somewhat confused as to his surroundings. He is unabl e to contribute to any meaningful conversation at this time; however, the majority of the history was obtained by his at bedside. REVIEW OF SYSTEMS: Could not be obtained at this time due to the patient's altered mental status. PAST MEDICAL HISTORY: As above. PAST SURGICAL HISTORY: Watchman procedure, biventricular defibrillator, lung decortication due to em pyema, PEG tube placement. FAMILY HISTORY: Denies any GI malignancies. OUTPATIENT MEDICATIONS: Reviewed. ALLERGIES: No known drug allergies. PHYSICAL EXAMINATION: VITAL SIGNS: Temperature of 97.3, pulse 70, blood pressure 116/63, respiratory rate 20, satting 98% on 2 liters nasal cannula. GENERAL: Patient is lying in bed in no acute distress, but unable to respond to verbal stimuli. NECK: Supple. No JVD noted. CARDIOVASCULAR: Regular rate and rhythm with no discernible murmurs, gallops or rubs. LUNGS: Diminished breath sounds bilaterally, but most especially within the left lower lung base wit h significant reduction in breath sounds as well as crackles heard in this particular region. ABDOMEN: Hyperactive bowel sounds, soft, nondistended. Tenderness to palpation in the midepigastric region, especially around the site of the prior PEG tube placement. LABORATORY DATA: White blood cell count of 7.0, hemoglobin 11.8, hematocrit 38.3, platelets 65. Evangelina sb with a sodium of 151, potassium 5, chloride 110, CO2 of 32, BUN 71, creatinine 2.05, glucose 1 23, AST 14, ALT 17, alkaline phosphatase 83, total bilirubin 1.0. Urinalysis is consistent with a ur inary tract infection. Abdominal CT obtained on 08/03/2017 showed enlarged heart with multi-lead, pa rtially imaged transvenous pacing device present. There is a partial consolidation/collapse of the l eft lower lobe with reticular nodular densities suggesting infectious pneumonitis. No free intraperi toneal air was evident. There was a small volume of nonspecific free fluid within the pelvis includi ng the presacral space as well as a degree of anasarca noted within the subcutaneous fat; however, th ere was no evidence of an abdominal or pelvic abscess, nor evidence of peritonitis. ASSESSMENT AND PLAN: The patient is an 82-year-old male with past medical history of atrial fibrilla tion, congestive heart failure with an ejection fraction of 20-25%, chronic kidney disease, chronic m yelogenous leukemia, Enterococcus faecalis endocarditis, prostate cancer and dysphagia presenting wit h acutely altered mental status and removal of the PEG tube. PEG tube removal: The patient presenting with recent diagnosis of dysphagia that ultimately required the placement of a PEG tube on 08/01/2017, however, with increasing altered mental status at [facility], he was ultimately transferred back to [facility] for evaluation. While here in the [facility], he inadvertently removed his PEG tube. Given the short duration of the PEG tube being placed (approximately 2 days), the maturation of the tract between the skin and the anterior gastric wall h ad not been adequate to prevent a barrier of gastric secretions flowing into the peritoneum. It woul d be considered a surgical emergency. However, the patient currently does not have a white blood mariama l count and a stat CT of the abdomen and pelvis did not show any evidence of peritonitis indicating t hat with removal of the PEG tube, it is currently contained. General Surgery Service was consulted u sofy to evaluate the patient with recommendations at this time to continue clinical observation as well as continue IV antibiotics. They also feel that he is a possible candidate for PEG tube replac ement; however, given his worsening clinical status and tenuous respiratory status with the removal o f 2 liters of pleural fluid via a left thoracentesis, I am uncertain as to how he would tolerate a fu rther procedure at this time. At this time, he does have an NG tube in place which could be potentia lly used to feed the patient; however, given that there is a possible perforation within the stomach itself, I would continue the patient on n.p.o. status at this time. RECOMMENDATIONS: 1. Would continue patient on n.p.o. status at this time with NG tube placed to low intermittent wall suction. 2. Would continue IV antibiotics as recommended by the General Surgery Service. 3. Would continue to monitor the patient clinically for signs of a new acute decompensation or impro vement in status that might be amenable towards a repeat procedure with PEG tube placement. 4. We will confer with the patient's medical power of demolition worker () about her undergoing a second procedure for PEG tube placement and the risks and benefits associated with such placement. We will continue to follow. Please call with any questions.
[2017-08-04] MEDS: Ampicillin 2 GM, Syringe 5.2 ML in Sterile Water 14.8 ML SLOW IVP SCH ×6 (01:38→21:18)
[2017-08-04] MEDS: Famotidine/PF 20 mg/2ml Vial SLOW IVP SCH (08:03)
[2017-08-04] MEDS: Clopidogrel Bisulfate 75 MG TAB PER TUBE SCH (08:03)
[2017-08-04] MEDS: Aspirin 81 mg Enteric Coated Tablet PER TUBE SCH (08:03)
[2017-08-04] MEDS: Saccharomyces boulardii 250 MG CAP PER TUBE SCH (08:03)
--- NOTE | 2017-08-04 08:17 | PRG ---
DATE OF SERVICE: 08/04/2017 This morning he is sleepy, but arousable. PHYSICAL EXAMINATION: VITAL SIGNS: His sats are 98 on 2 liters, temperature is 97, blood pressure 107/51. CHEST: Chest reveals decreased breath sounds, no wheezing. CARDIAC: Normal S1, S2. ABDOMEN: Soft, no masses. IMPRESSION: 1. Respiratory failure. 2. Encephalopathy. 3. Severe deconditioning. 4. Atrial fibrillation. 5. Sepsis. PLAN: Slow hydration, reinsert PEG. Avoid excessive sedation. Antibiotics per Infectious Disease. I will follow.
[2017-08-04 08:55] LABS: Anion Gap 14 mmol/L (10-20); BUN (Urea Nitrogen) 62 mg/dL (8.4-25.7); Calc. Creatinine Clearance 44 mL/min (70-130); Calcium 8.2 mg/dL (7.8-10.44); Carbon Dioxide 27 mmol/L (23-31); Chloride 109 mmol/L (98-107); Estimated GFR-MDRD 37; Glucose 99 mg/dL (83-110); Potassium 3.8 mmol/L (3.5-5.1); Sodium 146 mmol/L (136-145)
--- NOTE | 2017-08-04 09:13 | PDOC.PN ---
- Subjective Encounter Start Date: 08/04/17 Encounter Start Time: 09:12 Mr. Alvarez was seen today in follow-up. He is still a bit lethargic. - Objective Resuscitation Status: Resuscitation Status DNR:Do Not Resuscitate MAR Reviewed: Yes Vital Signs & Weight: Vital Signs (12 hours) Temp Pulse Resp BP Pulse Ox 08/04/17 07:58 70 18 100 08/04/17 07:20 97.8 F 70 18 107/51 L 99 08/04/17 04:00 96.8 F L 70 20 112/53 L 100 08/04/17 02:07 70 20 100 08/04/17 00:00 96.8 F L 70 20 119/69 100 08/03/17 22:43 70 20 100 Weight Admit Weight 213 lb 9.6 oz Weight 211 lb 14.4 oz I&O: 08/03/17 08/04/17 08/05/17 06:59 06:59 06:59 Intake Total 0 1575 Output Total 950 1200 Balance -950 375 Result Diagrams: 08/03/17 05:30 08/04/17 07:55 Additional Labs: Accuchecks 08/04/17 08/03/17 08/03/17 05:56 23:46 17:10 POC Glucose 83 68 L 93 08/03/17 11:15 POC Glucose 96 Phys Exam - Physical Examination HEENT: PERRLA Respiratory: no rales, wheezing present + rhonchi, and rales at the bases Cardiovascular: RRR, no significant murmur, no rub Gastrointestinal: soft, non-tender, positive bowel sounds Musculoskeletal: edema present + pedal edema Dx/Plan (1) Recurrent pleural effusion on left Code(s): J90 - PLEURAL EFFUSION, NOT ELSEWHERE CLASSIFIED Status: Acute (2) Jhske-ez-fnnqydh kidney injury Code(s): N17.9 - ACUTE KIDNEY FAILURE, UNSPECIFIED; N18.9 - CHRONIC KIDNEY DISEASE, UNSPECIFIED Status: Acute (3) Protein-calorie malnutrition, moderate Code(s): E44.0 - MODERATE PROTEIN-CALORIE MALNUTRITION Status: Acute (4) Acute and chronic respiratory failure Code(s): J96.20 - ACUTE AND CHR RESP FAILURE, UNSP W HYPOXIA OR HYPERCAPNIA Status: Acute Qualifiers: Respiratory failure complication: hypoxia Qualified Code(s): J96.21 - Acute and chronic respiratory failure with hypoxia Comment: Resolved with pulm support (5) Endocarditis of mitral valve Code(s): I05.8 - OTHER RHEUMATIC MITRAL VALVE DISEASES Status: Acute Comment : Continue Ampicillin and Rocephin until 09/03/17 (6) Acute on chronic systolic heart failure Code(s): I50.23 - ACUTE ON CHRONIC SYSTOLIC (CONGESTIVE) HEART FAILURE Status : Acute - Plan * Pleural Effusion- Patient respiratory status has improved after thorocentesis * Enterococcus Endocarditis- continue Ampicillin and Rocephin * Hypernatremia- improved * PEG Tube- Patient had inadvertently removed his PEG Tube- CT scan was obtained which did not demonstrate peritonitis- Will add Flagyl to cover anerobic organisms. Replacement of PEG Tube will be as per General Surgery and Gastroenterology decision * Acute on chronic systolic heart failure- stable * Suprapubic Catheter has bee replaced
[2017-08-04] MEDS: Enoxaparin Sodium 30 MG/0.3 ML SYRINGE SC SCH (09:52)
[2017-08-04] MEDS: Sodium Chloride 0.45% 1,000 ML IV SCH (11:50)
--- NOTE | 2017-08-04 12:31 | PRG ---
DATE OF SERVICE: 08/04/2017 SUBJECTIVE: The patient's mumbling is difficult to understand. He has no specific complaints. OBJECTIVE: VITAL SIGNS: Temperature is 97.5, pulse 70, respiratory rate 20, and blood pressure 121/47. HEENT: Unremarkable. CHEST: Clear. CARDIOVASCULAR: Regular rate and rhythm. ABDOMEN: Soft. PEG site seems to be okay. Bowel sounds are present and normoactive. EXTREMITIES: Normal. ASSESSMENT: 1. PEG removal without subsequent evidence for peritonitis or pneumoperitoneum. 2. Enterococcus endocarditis. 3. Oropharyngeal dysphagia. 4. Congestive heart failure. RECOMMENDATIONS: EGD and PEG tomorrow.
[2017-08-04] MEDS: cefTRIAXone\\ROCEPHIN 2 GM in Sodium Chloride 0.9% 100 ML IVPB SCH (15:02)
[2017-08-04] MEDS: metroNIDAZOLE 250 MG in Admixture Fee 2 EACH IVPB SCH ×2 (15:03→22:22)
--- NOTE | 2017-08-04 15:54 | PRG ---
DATE OF SERVICE: 08/04/2017 Mr. Alvarez is seen one day after consultation yesterday evening. He had pulled out his own PEG tube about 36 hours after it was placed. CT scan from yesterday showed some peritoneal fluid, but no evid ence of contrast leak. After speaking with his , I have recommended no further treatment for now other than continued antibiotics. I had recommended that he maintain gastric decompression to allow this to close appropriately until another PEG tube is placed. From my understanding, plan is to andrew ce another PEG tube tomorrow. The patient is lethargic, but arouses and answers questions. He denies abdominal pain. PHYSICAL EXAMINATION: VITAL SIGNS: He is afebrile. Vital signs are normal. ABDOMEN: Soft. Bowel sounds are present and normoactive. PEG tube removal site appears to be heali ng appropriately, though without evidence of infection. ASSESSMENT AND PLAN: The patient appears to be doing well following premature PEG tube removal. Alt josie this had the potential to lead to a significant intra-abdominal leak or peritonitis, this does not seem to have happened. We have therefore avoided surgery on him, which is certainly to his benef it at this juncture. As there are no further surgical indications currently, I will see him in the uture on a p.r.n. basis. If there is any fashion which I may be of assistance, please do not hesitat e to notify me.
[2017-08-04] MEDS: Dextrose 5% in Water 1,000 ML IV SCH (19:30)
[2017-08-05] MEDS: Ampicillin 2 GM, Syringe 5.2 ML in Sterile Water 14.8 ML SLOW IVP SCH ×6 (01:12→21:19)
[2017-08-05] MEDS: Dextrose 5% in Water 1,000 ML IV SCH ×2 (03:15→22:41)
[2017-08-05] MEDS: metroNIDAZOLE 250 MG in Admixture Fee 2 EACH IVPB SCH ×3 (06:02→22:40)
--- NOTE | 2017-08-05 06:16 | PRG ---
DATE OF SERVICE: 08/05/2017 This morning he is awake, responsive and looks better. PHYSICAL EXAMINATION: VITAL SIGNS: His sats are 95% on room air, temperature is 98, blood pressure 100/54. GENERAL: He is having dysphagia, PEG needs to be inserted again. CHEST: Chest reveals decreased breath sounds, no wheezing. CARDIAC: Normal S1, S2, no gallops. . IMPRESSION: 1. Massive left pleural effusion, status post thoracentesis, appears to be a transudate. 2. Congestive heart failure. 3. Presumed endocarditis. 4. Renal failure. 5. Severe deconditioning. PLAN: He is a DNR, but a PEG is appropriate. Continue antibiotics as per Infectious Disease. Event ually placement.
[2017-08-05] MEDS: Saccharomyces boulardii 250 MG CAP PER TUBE SCH (08:07)
[2017-08-05] MEDS: Aspirin 81 mg Enteric Coated Tablet PER TUBE SCH (08:07)
[2017-08-05] MEDS: Clopidogrel Bisulfate 75 MG TAB PER TUBE SCH (08:07)
[2017-08-05] MEDS: Famotidine/PF 20 mg/2ml Vial SLOW IVP SCH (08:07)
[2017-08-05] MEDS: Enoxaparin Sodium 30 MG/0.3 ML SYRINGE SC SCH (10:25)
--- NOTE | 2017-08-05 13:44 | PQF ---
/zion 'DATE: 08-05-17 ATTN : JOSELIN FARRIS Please exercise your independent, professional judgment in responding to the clarification form. Clinical indicators are provided on the bottom of this form for your review Please check appropriate box(s): Conflicting documentation was noted in the Medical Record, please clarify if patient is being treated/monitored for: [X ] SEVERE PROTEIN CALORIE MALNUTRITION (diagnosis #1) [ ] MODERATE PROTEIN CALORIE MALNUTRITION (diagnosis #2) [ ] Other diagnosis [ ] Unable to determine In addition, please specify: Present on Admission (POA): [ X ] Yes [ ] No [ ] Unable to determine For continuity of documentation, please document condition throughout progress notes and discharge summary. Thank You. CLINICAL INDICATORS - SIGNS / SYMPTOMS/ LABS CONSULT DR. MONSALVE 08-02-17: HE HAS MULTIPLE MEDICAL PROBLEMS WITH A BIGGEST PROBLEM HE FACES IS SEVERE PROTEIN CALORIE MALNUTRITION AND MUSCLE WASTING. HE IS EXTREMELY CACHECTIC APPEARING. HE HAS TEMPORAL MUSCLE WASTING. HE ACTUALLY HAS INTERCOSTAL MUSCLE WASTING TO SUCH A DEGREE OWEN HE IS CONCAVE BETWEEN HIS RIBS. PN 08-03-17: ACUTE MODERATE PROTEIN CALORIE MALNUTRITION ALBUMIN: 08-02-17: 2.6 RISK FACTORS: H&P: HX OF CHF, CKD, CML, SACRAL DECUB, A FIB, SEVERE DECONDITIONED, HX OF SEPSIS, PNA TREATMENT: PN 08-04-17: PEG TUBE REINSERTED (This form is maintained as a part of the permanent medical record) 2014 [employer] All Rights Reserved [email or web address] [email or web address] Office: [phone] [facility]
[2017-08-05] MEDS: cefTRIAXone\\ROCEPHIN 2 GM in Sodium Chloride 0.9% 100 ML IVPB SCH (15:22)
[2017-08-05] MEDS ORDERED: Lidocaine 1% PF 5 ML VIAL ONE (16:04)
[2017-08-05] MEDS ORDERED: Propofol 200 MG/20 ML VIAL ONE (16:04)
--- NOTE | 2017-08-05 16:05 | CT ---
ABDOMEN AND PELVIC CT NONCONTRAST 08/06/16 CLINICAL HISTORY: Recent PEG tube placement status post procedural attempt, imaging evaluation. Reference made to CT exam two days prior. FINDINGS: There is a linear tract traversing the left upper quadrant with overlying subcutaneous air. Linear or iented density approximates adjacent small bowel and is located anterior and lateral to the distal ga stric body. There is extensive intra-abdominal free air which results in posterior displacement of th e anterior abdominal structures. There is moderate volume of ascites overlying the right hepatic mary in and surrounding portions of the spleen. Bibasilar consolidation and adjacent pleural fluid present . There is prominence of the imaged cardiac chambers. An enteric catheter is in place terminating within the gastric lumen. No overt hydronephrosis involvi ng either kidney. There is atrophy of the pancreas. Vicarious excretion of contrast seen within the g allbladder lumen. There is diffuse vascular disease. Moderate free pelvic fluid is present. There is colonic diverticulosis. The bowel is incompletely evaluated without enteric contrast. Diffuse soft ti ssue edema of the body wall present. Scattered osseous degenerative change is present. There is promi nent gas density of the L4-5 disc space. There is an indwelling Dailey catheter with decompressed uri nary bladder. There is dissection of air density into the right inguinal canal. Stable mild wall prom inence of the unopacified stool filled rectosigmoid colon. IMPRESSION: Linear density from recent gastrostotomy placement which resides anterior and lateral to the gastric body and abuts ventral aspect of the traversing small bowel. There is a large volume of free intra-ab dominal with associated posterior displacement of the anterior abdominal contents. Scattered abdominal and pelvic ascites. Prominent bibasilar consolidation with adjacent pleural fluid. Telephone call of findings placed to patient's ordering physician, Gerald Fisher at 1520 hour s, 08/05/17. Code CR POS: PAUL
--- NOTE | 2017-08-05 17:28 | PDOC.PN ---
- Subjective Encounter Start Date: 08/05/17 Encounter Start Time: 17:26 Subjective: discussed care w . -: PEG could not be placed. - Objective Resuscitation Status: Resuscitation Status DNR:Do Not Resuscitate MAR Reviewed: Yes Vital Signs & Weight: Vital Signs (12 hours) Temp Pulse Resp BP Pulse Ox 08/05/17 16:04 96.6 F L 70 22 H 96/51 L 93 L 08/05/17 11:12 70 18 100 08/05/17 11:00 96.8 F L 73 30 H 103/48 L 100 08/05/17 08:00 96.3 F L 70 20 100 08/05/17 07:50 70 18 97 08/05/17 07:41 96.3 F L 70 20 108/58 L 100 Weight Admit Weight 213 lb 9.6 oz Weight 212 lb 8 oz I&O: 08/04/17 08/05/17 08/06/17 06:59 06:59 06:59 Intake Total 1575 1080 Output Total 1200 400 Balance 375 680 Result Diagrams: 08/06/17 03:38 08/06/17 03:38 Additional Labs: Accuchecks 08/05/17 08/05/17 08/04/17 12:24 06:17 20:33 POC Glucose 139 H 135 H 117 H Microbiology 08/03/17 08:30 Pleural fluid Acid Fast Bacilli Smear - Final 08/02/17 16:10 Urine Suprapubic catheter Urine Culture - Final Yeast species 08/03/17 08:30 Pleural fluid Body Fluid Culture - Preliminary Phys Exam - Physical Examination Constitutional: NAD sleepy ,trying to pull out NGT dry mucosa Neck: no JVD Respiratory: no wheezing, no rales, no rhonchi, clear to auscultation bilateral Cardiovascular: RRR, no significant murmur Gastrointestinal: soft Bleeding for peg site,distended Musculoskeletal: no edema, pulses present multiple healing skin abrasion on feet Neurological: moves all 4 limbs Psychiatric: A&O x 3 Deviation from normal: agitated Skin: no rash Dx/Plan (1) PEG tube malfunction Code(s): K94.23 - GASTROSTOMY MALFUNCTION Status: Acute Comment: Empiric Flagyl for possible peritonitis (2) Recurrent pleural effusion on left Code(s): J90 - PLEURAL EFFUSION, NOT ELSEWHERE CLASSIFIED Status: Acute Comment: s/p Thoracentesis.Transudative with Cx negative so far (3) Jughq-qe-cuegdmc kidney injury Code(s): N17.9 - ACUTE KIDNEY FAILURE, UNSPECIFIED; N18.9 - CHRONIC KIDNEY DISEASE, UNSPECIFIED Status: Acute (4) Bacteremia due to Enterococcus Code(s): R78.81 - BACTEREMIA; B95.2 - ENTEROCOCCUS THE CAUSE OF DISEASES CLASSIFIED ELSEWHERE Status: Acute Comment: Ampicillin. IV abx until . Lasix 40mg po daily. (5) Chronic kidney disease, stage 3 Code(s): N18.3 - CHRONIC KIDNEY DISEASE, STAGE 3 (MODERATE) Status: Acute (6) Endocarditis of mitral valve Code(s): I05.8 - OTHER RHEUMATIC MITRAL VALVE DISEASES Status: Acute Comment : Continue Ampicillin and Rocephin until 09/03/17 (7) Chronic systolic heart failure Code(s): I50.22 - CHRONIC SYSTOLIC (CONGESTIVE) HEART FAILURE Status: Chronic (8) Thrombocytopenia Code(s): D69.6 - THROMBOCYTOPENIA, UNSPECIFIED Status: Acute (9) Severe protein-calorie malnutrition Code(s): E43 - UNSPECIFIED SEVERE PROTEIN-CALORIE MALNUTRITION Status: Chronic (10) Paroxysmal atrial fibrillation Code(s): I48.0 - PAROXYSMAL ATRIAL FIBRILLATION Status: Chronic Comment: s/ p watchman device (11) H/O prostate cancer Code(s): Z85.46 - PERSONAL HISTORY OF MALIGNANT NEOPLASM OF PROSTATE Status: Chronic Comment: Suprapubic cathter (12) H/O: CML (chronic myeloid leukemia) Code(s): Z85.6 - PERSONAL HISTORY OF LEUKEMIA Status: Chronic Comment: In remission.s/p Gleevac (13) Indwelling suprapubic catheter Status: Chronic (14) Recent Influenza Status: Acute (15) Cardiomyopathy Code(s): I42.9 - CARDIOMYOPATHY, UNSPECIFIED Status: Chronic Comment: AICD in place (16) Acute and chronic respiratory failure Code(s): J96.20 - ACUTE AND CHR RESP FAILURE, UNSP W HYPOXIA OR HYPERCAPNIA Status: Acute Qualifiers: Respiratory failure complication: hypoxia Qualified Code(s): J96.21 - Acute and chronic respiratory failure with hypoxia Comment: Resolved with pulm support - Plan plan discussed w/ family, DVT proph w/SCDs Start TPN Via PICC.GI to adress PEG later. -: hold Lovenox & plavix as bleeding at PEG w Low platelets -: cont empiric ABx. Pleural fluid Cx negative so far.PCCM following. -: NGT w IMWS.hold all PO meds per GI -: daily labs & supportive care.guarded prognosis * .Pt very sick w prolonged illness.DNR * will follow Review of Systems - Review of Systems Other: can not be obtained aspt is somnolent - Medications/Allergies Allergies/Adverse Reactions: Allergies Allergy/AdvReac Type Severity Reaction Status Date / Time No Known Allergies Allergy Verified 07/29/17 18:07 Medications: Current Medications Albuterol/Ipratropium (Duoneb) 3 ml NEB Q6H PRN PRN Reason: SOB &/or Wheezing Last Admin: 08/02/17 20:01 Dose: 3 ml Albuterol/Ipratropium (Duoneb) 3 ml NEB [id number] [facility] Last Admin: 08/05/17 14:16 Dose: Not Given Dextrose/Water (Dextrose 50%) 25 gm SLOW IVP PRN PRN PRN Reason: Hypoglycemia Enoxaparin Sodium (Lovenox) 30 mg SC 0900 [facility] Last Admin: 08/05/17 10:25 Dose: Not Given Famotidine (Pepcid) 20 mg SLOW IVP DAILY [facility] Last Admin: 08/05/17 08:07 Dose: Not Given Glucagon (Glucagon) 1 mg IM PRN PRN PRN Reason: Hypoglycemia Dextrose/Water (D5w) 1,000 mls @ 0 mls/hr IV .Q0M PRN; As Directed PRN Reason: Hypoglycemia Last Admin: 08/04/17 00:24 Dose: 1,000 mls Ceftriaxone Sodium 2 gm/ (Sodium Chloride) 100 mls @ 200 mls/hr IVPB 1400 [facility] Last Admin: 08/05/17 15:22 Dose: 100 mls Ampicillin Sodium 2 gm/ (Syringe 5.2 ml/ Sterile Water) 20 mls @ 60 mls/hr SLOW IVP Q4HR [facility] Last Admin: 08/05/17 13:05 Dose: 20 mls Metronidazole 250 mg/ (Miscellaneous Medication) 50 mls @ 100 mls/hr IVPB Q8HR [facility] Last Admin: 08/05/17 15:23 Dose: 50 mls Dextrose/Water (D5w) 1,000 mls @ 75 mls/hr IV .[id number] [facility] Last Admin: 08/05/17 03:15 Dose: 1,000 mls Multivitamins 10 ml/ TRACE ELEMENT CONCENTRATE 1 ml/Amino Acids/Electrolytes 2, 011 mls @ 75 mls/hr IV 2200 [facility] Insulin Human Lispro (Humalog) 0 units SC .MILD SLIDING SCALE PRN PRN Reason: Mild Correctional Scale Ondansetron HCl (Zofran) 4 mg IVP Q6H PRN PRN Reason: Nausea/Vomiting
[2017-08-05] MEDS ORDERED: Multivitamins, Adult 10 ML, TRACE ELEMENT CONCENTRATE 1 ML in D30W-AA 10% with Lytes 2,... IV SCH ×3 (22:00)
--- NOTE | 2017-08-05 23:58 | OP ---
PREPROCEDURE DIAGNOSES: 1. Oropharyngeal dysphagia. 2. The patient had a PEG tube placed 08/01/2017, but it was ultimately removed inadvertently by the patient. Recent CAT scan on the showed no signs of peritonitis or pneumoperitoneum. She will h ave repeat PEG placement today. ANTIBIOTICS: None. This patient is already receiving antibiotics. POSTPROCEDURE DIAGNOSIS: Unsuccessful PEG tube placement. PLAN: We will get a CAT scan. His abdomen is fairly distended, make sure there is no pneumoperitone um or distended colon or small bowel, making the placement of the PEG tube difficult. PROCEDURE IN DETAIL: After the patient's was informed of the risks, benefits, possible complica tions of endoscopy including perforation, bleeding, reactions to medication and aspiration, informed consent was obtained. The patient brought to endoscopy suite where he was sedated carefully by Josefina white. They anesthetized his throat as well topically and it is very fragile from an anesthetic risk standpoint. The endoscope was advanced through the esophagus, stomach and second and third portion of the duodenum. The attention was then turned to the stomach. There was good finger indentation an d transillumination of the anterior abdominal wall not far from the previous PEG tube site. Despite we cleaned and prepped and draped the abdomen in sterile fashion. A 22-gauge finder needle was used to anesthetize the skin and then it was advanced into the stomach easily. In the same spot, we made a small kay in the skin to place the PEG tube. We tried to introduce the trocar into the stoma ch. The stomach was not found, we did not push further and then once again tried to locate the stoma ch lumen. The finger indentation and transillumination, which we thought we had a good spot. We use d the finder needle again, but could not advance the needle into the stomach. At this point in time, the decision was made wth the patient's distended abdomen to suspend the procedure as we could not a chieve good finger indentation on the anterior gastric wall and were concerned that these were eithe r some pneumoperitoneum or there was distension of other bowel loops between the stomach and the abdo olya wall. The patient had NG tube replaced and was brought back to the ICU in stable condition. W e will repeat the CAT scan today.
--- NOTE | 2017-08-06 00:16 | PRG ---
DATE O SERVICE: 08/05/2017 SUBJECTIVE: Mr. Alvarez is resting comfortably in bed. NG tube is in place for suction. OBJECTIVE: VITAL SIGNS: Temperature 96, pulse 70, blood pressures 96/51-103/48, respirations 22-18. GENERAL: He is resting, he is little bit somnolent, but arousable and his notes he has been lit tle confused, which has been his baseline on and off. His CAT scan after the attempted PEG tube shows a copious amount of free air in the upper abdomen. N o bleeding or blood. LUNGS: Otherwise clear with diminished breath sounds, but no rales or wheezing. ABDOMEN: Quiescent, it is distended, but not tense. There is tympany. Bowel sounds are quiescent. There is no rebound, there is no guarding. PEG site has a dressing in place, minimal blood, but no ongoing bleeding. LABORATORY STUDIES: None from today. CAT scan reviewed with Radiology, there was copious amount of free air in the upper abdomen. There is a change in the abdominal wall with some clot and mild infla mmation, but no abscess or infection, likely at the old PEG tube site. ASSESSMENT: Status post thoracentesis for large pleural effusions, it is transudative; congestive he art failure; presumed endocarditis; renal failure; severe deconditioning. The patient inadvertently removed his PEG tube that had been placed on 08/01/2017 when he was brought back to [facility]. PEG tube inadvertently removed it about 2 days after it had been placed. A CAT scan, which did not show any overt evidence of peritonitis, little bit of free fluid in the pelvis. There was no evidence of free air at that time. Surgery evaluated the patient and felt continue the IV antibiotics and observation NG tube decompression with plan on trying to replace the PEG tube tod ay. We attempted to do that and although procedure by transillumination, I was able to place t he PEG tube right adjacent to the previous tract. The finder needle did find the stomach very easily after making a small incision to the abdomen to place a larger trocar into the stomach and then trie d to advance the larger needle and wire to the stomach. We were not able to access the stomach. The patient became distended and the procedure was discontinued. A followup CAT scan shows free air and it is my impression that the previous PEG tube tract from the stomach site opened up and allow the a ir to release into the peritoneal cavity. There was no a gastric content or food in the stomach. He has not been fed by Dobbhoff tube in the intervening time with low risk for contamination other than air and a gastric acid. I talked with the patient's surgeon Dr. Brown and the patient's deanna mcdanieling options of exploration now with surgical closure of the previous gastric PEG tube site and then a surgical placement of PEG at the same time versus observation, empiric antibiotics and NG decompre ssion with strict n.p.o. and no medicines or feeding per the NG tube. With this, we would have to pl kaitlin him on TPN, which may be an issue with regard to his heart failure, but the surgeon is concerned that although he probably would do okay with surgery that it would be very high risk for getting off of ventilator. Previous procedures, he had been made DNR with no plans for intubation. The patient' s at this time states that he defers to our judgment and talking with General Surgery, felt he i s high risk for not getting off the ventilator, we would like to proceed in a conservative fashion at this time, we will do that. I ask General Surgery to stop back by for evaluation as well.
[2017-08-06] MEDS: Ampicillin 2 GM, Syringe 5.2 ML in Sterile Water 14.8 ML SLOW IVP SCH ×6 (00:38→20:38)
[2017-08-06 04:34] LABS: #Basophils 0.1 thou/uL (0.0-0.2); #Lymphocytes 0.3 thou/uL (1.20-3.40); #Monocytes 0.4 thou/uL (0.11-0.59); #Neutrophils 10.9 thou/uL (1.40-6.50); %Basophils 0.5 % (0.0-1.0); %Eosinophils 0.2 % (0.0-10.0); %Lymphocytes 2.9 % (21.0-51.0); %Neutrophils 93.3 % (42.0-75.0); Hemoglobin 12.3 g/dL (14.0-18.0); Mean Corpuscular HGB CONC 30.3 g/dL (32.0-36.0); Mean Platelet Volume 11.3 fL (7.4-10.4); Platelet Count 55 thou/uL (130-400); RBC Distribution Width 16.9 % (11.5-14.5); Red Blood Cell (RBC) Count 3.74 mill/uL (4.70-6.10); White Blood Cell (WBC) Count 11.7 thou/uL (4.8-10.8)
[2017-08-06 04:43] LABS: ALT (SGPT) 14 U/L (8-55); AST (SGOT) 10 U/L (5-34); Albumin 2.3 g/dL (3.4-4.8); Alkaline Phosphatase 84 U/L (40-150); Anion Gap 14 mmol/L (10-20); BUN (Urea Nitrogen) 60 mg/dL (8.4-25.7); Bilirubin, Total 1.3 mg/dL (0.2-1.2); Calc. Creatinine Clearance 44 mL/min (70-130); Calcium 8.4 mg/dL (7.8-10.44); Carbon Dioxide 28 mmol/L (23-31); Chloride 107 mmol/L (98-107); Estimated GFR-MDRD 37; Globulin 2.9 g/dL (2.4-3.5); Glucose 145 mg/dL (83-110); Magnesium 2.1 mg/dL (1.6-2.6); Potassium 3.9 mmol/L (3.5-5.1); Protein, Total 5.2 g/dL (5.8-8.1); Sodium 145 mmol/L (136-145)
[2017-08-06] MEDS: metroNIDAZOLE 250 MG in Admixture Fee 2 EACH IVPB SCH ×3 (06:02→22:39)
[2017-08-06] MEDS: Famotidine/PF 20 mg/2ml Vial SLOW IVP SCH (10:01)
[2017-08-06 11:43] VITALS: BMI 30.7
--- NOTE | 2017-08-06 14:11 | PDOC.PN ---
- Subjective Encounter Start Date: 08/06/17 Encounter Start Time: 14:09 Subjective: Pt remains confused .care discussed w -: pulled out PICC yesterday.new picc to be done today -: gurgling sounds intermittently - Objective Resuscitation Status: Resuscitation Status DNR:Do Not Resuscitate MAR Reviewed: Yes Vital Signs & Weight: Vital Signs (12 hours) Temp Pulse Pulse Pulse Resp BP BP 08/06/17 12:00 97.5 F L 70 18 08/06/17 11:50 70 24 H 08/06/17 08:50 60 64 90/51 L 98/49 L 08/06/17 08:00 97.3 F L 69 20 08/06/17 07:36 97.3 F L 69 20 08/06/17 07:13 08/06/17 07:12 70 20 08/06/17 04:00 97.0 F L 73 22 H 08/06/17 02:16 71 20 BP Pulse Ox Pulse Ox Pulse Ox 08/06/17 12:00 99/52 L 99 08/06/17 11:50 96 08/06/17 08:50 97 99 08/06/17 08:00 96 08/06/17 07:36 97/50 L 96 08/06/17 07:13 97 08/06/17 07:12 97 08/06/17 04:00 98/50 L 93 L 08/06/17 02:16 97 Weight Admit Weight 213 lb 9.6 oz Weight 214 lb I&O: 08/05/17 08/06/17 08/07/17 06:59 06:59 06:59 Intake Total 1080 1820 Output Total 400 830 Balance 680 990 Result Diagrams: 08/06/17 03:38 08/06/17 03:38 Additional Labs: Accuchecks 08/06/17 08/06/17 08/06/17 11:39 05:59 00:10 POC Glucose 168 H 259 H 145 H 08/05/17 18:08 POC Glucose 118 H Microbiology 08/03/17 08:30 Pleural fluid Acid Fast Bacilli Smear - Final 08/02/17 16:10 Urine Suprapubic catheter Urine Culture - Final Yeast species 08/03/17 08:30 Pleural fluid Body Fluid Culture - Preliminary 08/03/17 08:30 Pleural fluid Body Fluid Culture - Preliminary Laboratory Tests 08/02/17 08/03/17 08/04/17 15:24 05:30 07:55 Creatinine 2.12 H 2.05 H 1.76 H 08/06/17 03:38 Creatinine 1.76 H Phys Exam - Physical Examination Constitutional: NAD very weak looking,marginaly orineted HEENT: PERRLA, sclera anicteric, oral pharynx no lesions Dry mucosa Neck: no JVD Respiratory: no wheezing, no rales, no rhonchi, clear to auscultation bilateral coarse breath sounds at base. Cardiovascular: RRR, no significant murmur Gastrointestinal: soft, non-tender, no distention, positive bowel sounds Musculoskeletal: no edema, pulses present Neurological: non-focal, normal sensation, moves all 4 limbs Dx/Plan (1) PEG tube malfunction Code(s): K94.23 - GASTROSTOMY MALFUNCTION Status: Acute Comment: Empiric Flagyl for possible peritonitis (2) Recurrent pleural effusion on left Code(s): J90 - PLEURAL EFFUSION, NOT ELSEWHERE CLASSIFIED Status: Acute Comment: s/p Thoracentesis.Transudative with Cx negative so far (3) Dxhrn-qa-amkussi kidney injury Code(s): N17.9 - ACUTE KIDNEY FAILURE, UNSPECIFIED; N18.9 - CHRONIC KIDNEY DISEASE, UNSPECIFIED Status: Acute (4) Bacteremia due to Enterococcus Code(s): R78.81 - BACTEREMIA; B95.2 - ENTEROCOCCUS THE CAUSE OF DISEASES CLASSIFIED ELSEWHERE Status: Acute Comment: Ampicillin. IV abx until . Lasix 40mg po daily. (5) Chronic kidney disease, stage 3 Code(s): N18.3 - CHRONIC KIDNEY DISEASE, STAGE 3 (MODERATE) Status: Acute (6) Endocarditis of mitral valve Code(s): I05.8 - OTHER RHEUMATIC MITRAL VALVE DISEASES Status: Acute Comment : Continue Ampicillin and Rocephin until 09/03/17 (7) Chronic systolic heart failure Code(s): I50.22 - CHRONIC SYSTOLIC (CONGESTIVE) HEART FAILURE Status: Chronic (8) Thrombocytopenia Code(s): D69.6 - THROMBOCYTOPENIA, UNSPECIFIED Status: Acute (9) Severe protein-calorie malnutrition Code(s): E43 - UNSPECIFIED SEVERE PROTEIN-CALORIE MALNUTRITION Status: Chronic (10) Paroxysmal atrial fibrillation Code(s): I48.0 - PAROXYSMAL ATRIAL FIBRILLATION Status: Chronic Comment: s/ p watchman device (11) H/O prostate cancer Code(s): Z85.46 - PERSONAL HISTORY OF MALIGNANT NEOPLASM OF PROSTATE Status: Chronic Comment: Suprapubic cathter (12) H/O: CML (chronic myeloid leukemia) Code(s): Z85.6 - PERSONAL HISTORY OF LEUKEMIA Status: Chronic Comment: In remission.s/p Gleevac (13) Indwelling suprapubic catheter Status: Chronic (14) Recent Influenza Status: Acute (15) Cardiomyopathy Code(s): I42.9 - CARDIOMYOPATHY, UNSPECIFIED Status: Chronic Comment: AICD in place (16) Acute and chronic respiratory failure Code(s): J96.20 - ACUTE AND CHR RESP FAILURE, UNSP W HYPOXIA OR HYPERCAPNIA Status: Acute Qualifiers: Respiratory failure complication: hypoxia Qualified Code(s): J96.21 - Acute and chronic respiratory failure with hypoxia Comment: Resolved with pulm support - Plan plan discussed w/ family, continue antibiotics, PT/OT, long term care social worker, respiratory therapy, incentive spirometry, out of bed/ambulate, DVT proph w/SCDs replace PICC today & resume TPN.Pt too frail.poor prognosis -: cont Ampicillin,Rocephin & Flagyl.? peritonitis.GS on board -: not a surgical candiadte d/t multiple acute illnesses. -: Platelets still low. Cont to hold Lovenox,plavix. -: NGT in place.NPO.appreciate Gi input * .H/H stable. PEG site bleeding has stopped. * am labs * BP lower side. not on any meds. monitor. * PCCM following for Pleural effusion.s/p thoracentesis Review of Systems - Review of Systems Other: not obtainable due to encephalopathy - Medications/Allergies Allergies/Adverse Reactions: Allergies Allergy/AdvReac Type Severity Reaction Status Date / Time No Known Allergies Allergy Verified 07/29/17 18:07 Medications: Current Medications Albuterol/Ipratropium (Duoneb) 3 ml NEB Q6H PRN PRN Reason: SOB &/or Wheezing Last Admin: 08/02/17 20:01 Dose: 3 ml Albuterol/Ipratropium (Duoneb) 3 ml NEB [id number] [facility] Last Admin: 02/22/18 11:50 Dose: 3 ml Dextrose/Water (Dextrose 50%) 25 gm SLOW IVP PRN PRN PRN Reason: Hypoglycemia Famotidine (Pepcid) 20 mg SLOW IVP DAILY [facility] Last Admin: 08/06/17 10:01 Dose: 20 mg Glucagon (Glucagon) 1 mg IM PRN PRN PRN Reason: Hypoglycemia Dextrose/Water (D5w) 1,000 mls @ 0 mls/hr IV .Q0M PRN; As Directed PRN Reason: Hypoglycemia Last Admin: 08/04/17 00:24 Dose: 1,000 mls Ceftriaxone Sodium 2 gm/ (Sodium Chloride) 100 mls @ 200 mls/hr IVPB 1400 [facility] Last Admin: 08/05/17 15:22 Dose: 100 mls Ampicillin Sodium 2 gm/ (Syringe 5.2 ml/ Sterile Water) 20 mls @ 60 mls/hr SLOW IVP Q4HR [facility] Last Admin: 08/06/17 10:00 Dose: 20 mls Metronidazole 250 mg/ (Miscellaneous Medication) 50 mls @ 100 mls/hr IVPB Q8HR [facility] Last Admin: 08/06/17 06:02 Dose: 50 mls Dextrose/Water (D5w) 1,000 mls @ 75 mls/hr IV .[id number] [facility] Last Admin: 08/05/17 22:41 Dose: Not Given Multivitamins 10 ml/ TRACE ELEMENT CONCENTRATE 1 ml/Amino Acids/Electrolytes 2, 011 mls @ 75 mls/hr IV 2200 [facility] Last Admin: 08/05/17 22:40 Dose: 2,011 mls Insulin Human Lispro (Humalog) 0 units SC .MILD SLIDING SCALE PRN PRN Reason: Mild Correctional Scale Ondansetron HCl (Zofran) 4 mg IVP Q6H PRN PRN Reason: Nausea/Vomiting
--- NOTE | 2017-08-06 14:58 | PRG ---
DATE OF SERVICE: 08/06/2017 HISTORY OF PRESENT ILLNESS: Mr. Alvarez has been relatively stable since PEG tube removal 3 days ago. He never seemed to develop peritonitis in spite of lack of surgical treatment. He was taken back t o the endoscopy suite yesterday for attempt at placing of the PEG tube. He apparently developed an a ir leak from his old PEG tube opening on his stomach when it was insufflated and this led to a signif icant pneumoperitoneum. PEG tube thereafter not be placed. The patient seemed to remain stable. He denies significant pain. I had again discussed this case wi th his and told her that I thought he had roughly the same chances of recovery and survival with or without surgery. Still fearful that with surgery and the general anesthetic that he will end up on the ventilator for a prolonged period of time and may be able to come off. Since the stomach was essentially empty and there should be limited chance of him developing true peritonitis, I have recom mended continued observation with nasogastric suction and intravenous antibiotics. A PICC line has b een placed with the intention of using this for parenteral nutrition. He denies significant discomfo rt at this point. PHYSICAL EXAMINATION: VITAL SIGNS: He is afebrile. Pulse 70, blood pressure is 99/52. LUNGS: Clear to auscultation. ABDOMEN: Mildly to moderately distended with normal bowel sounds and no focal tenderness. ASSESSMENT AND PLAN: The patient with pneumoperitoneum secondary to prior PEG tube placement. Xin nue conservative management for now. I would hope that he would be able to have a PEG tube placed in the near future that would allow tube feeds.
[2017-08-06] MEDS: Dextrose 5% in Water 1,000 ML IV SCH (15:45)
--- NOTE | 2017-08-06 15:47 | SPC ---
ULTRASOUND AND FLUOROSCOPIC-GUIDED RIGHT UPPER EXTREMITY PICC LINE PLACEMENT: INDICATION: Need for long-term IV antibiotics. TECHNIQUE: Informed consent was obtained. Preprocedure ultrasound demonstrated patent right basilic vein. A si te overlying the right basilic vein was prepped and draped in the usual sterile fashion. Buffered 1% Lidocaine was administered to overlying subcutaneous tissues. Under ultrasound guidance, a Avatrip cture access kit was utilized to gain access to the right basilic vein. The guidewire was advanced t o the level of the IVC. A 5 [place] catheter sheath was then placed. A single-lumen PICC line trimme d to 44 cm was guided over the wire and into the sheath. The sheath and wire were removed. The tota l fluoroscopic time was 1 minute. Total exposure was 3,292 mGy*^cm2. IMPRESSION: Successful ultrasound and fluoroscopic guided right upper extremity PICC line placement. POS: PAUL
[2017-08-06] MEDS: cefTRIAXone\\ROCEPHIN 2 GM in Sodium Chloride 0.9% 100 ML IVPB SCH (16:43)
[2017-08-06] MEDS ORDERED: Heparin 1,000 UNITS/ML VIAL ONE (18:21)
--- NOTE | 2017-08-06 20:11 | PRG ---
DATE OF SERVICE: 08/06/2017 SUBJECTIVE: Mr. Alvarez is about the same as yesterday. PHYSICAL EXAMINATION: VITAL SIGNS: Temperature 97, pulse 70, respirations 24. Apparently pulled out his PICC line out yes terday and we replaced today. Blood pressure 125/63. ABDOMEN: Soft and nontender. There is an abdominal binder on. There was some slight bleeding from that, but at this time there is no active bleeding. LABORATORY STUDIES: White count 11.7, hemoglobin 12.3, platelet count 55,000. BUN and creatinine ar e 60 and 1.67. Electrolytes are otherwise normal. Bilirubin is 1.3. AST and ALT are 10 and 14. ASSESSMENT: 1. Endocarditis. 2. Congestive heart failure. 3. Pleural effusions, likely related to heart failure. 4. 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 5. Inadvertent removal PEG tube in part of the patient with pneumoperitoneum on attempts to replace, which had to be aborted. 6. Chronic renal insufficiency. PLAN: At this time, we would continue TPN, watch fluid status. Continue NG tube suction with n.p.o. , otherwise including medicines need to be given IV. We would consider repeating imaging of the abdo men next week. His lungs remained stable and if pneumoperitoneum resolve maybe consider repeat attem pt to PEG tube placement at that time. If he has any signs of deterioration, he would need repeat CA T scan.
[2017-08-06] MEDS ORDERED: FAT EMULSION IV SCH ×6 (22:00)
[2017-08-06] MEDS ORDERED: MULTIVITAMINS IV SCH ×6 (22:00)
[2017-08-06] MEDS ORDERED: TRACE ELEMENT IV SCH ×6 (22:00)
[2017-08-06] MEDS ORDERED: [UNRECOGNIZED DRUG - OTHER] IV SCH ×6 (22:00)
[2017-08-07] MEDS: Dextrose 5% in Water 1,000 ML IV SCH (00:35)
[2017-08-07 01:27] VITALS: TEMP 96.3
[2017-08-07] MEDS: Ampicillin 2 GM, Syringe 5.2 ML in Sterile Water 14.8 ML SLOW IVP SCH (01:29)
[2017-08-07] MEDS ORDERED: Sodium Chloride 0.9% 500 ML IVPB SCH (02:15)
[2017-08-07] MEDS ORDERED: Norepinephrine 8 MG/0.9% NS 250 ML ONE (03:06)
--- NOTE | 2017-08-07 03:31 | PDOC.EVN ---
Event Note - Event Note Event Note: Called to see patient due to hypotension and agonal breathing. Patient was given a 500ml bolus of NS about 30 minutes prior without improvement in his blood pressure. He was moved to the ICU, and being prepared to start Levophed, however he stopped breathing prior to initiating Levophed. He is DNR, as No cpr was started. He was pronounced at 4:05AM. His is at the bedside, and all questions were addressed.
[2017-08-07 04:08] VITALS: BP 91/48
--- NOTE | 2017-08-07 06:55 | DS ---
DATE OF ADMISSION: 08/02/2017 DATE OF : 08/07/2017 TIME OF : 04:05 a.m. DIAGNOSES: Include, 1. Acute on chronic systolic heart failure with an ejection fraction of 20%-25%. 2. Enterococcus faecalis sepsis. 3. Atrial fibrillation. 4. Acute on chronic kidney disease. 5. Severe protein calorie malnutrition. 6. History of CML. 7. History of prostate cancer. 8. Large pleural effusion. PROCEDURES DONE DURING ADMISSION: The patient had a CT scan of the brain in which there was no acute intracranial abnormalities. The patient had a CT scan of the abdomen and pelvis on 08/03/2017 showi ng no free intraperitoneal air. There was evidence of a small-bowel obstruction or intraabdominal or intrapelvic abscesses. There was no evidence of that. No evidence of small-bowel obstruction or in tra-abdominal pelvic abscess. There was some parenchymal opacity in both lungs, which could represen t an infectious pneumonitis or pulmonary edema. There was evidence of anasarca and there was a small amount of free fluid within the abdomen and pelvis. The patient had a thoracentesis with the remova l of approximately 2 liters of fluid. The patient had a repeat CT scan of the abdomen and pelvis rosaura wing a linear density from a recent gastrostomy placement, which resides in the anterior and lateral aspect of the gastric body and abuts the ventral aspect of the traversing small bowel. There was a l arge volume of free air in the intra-abdominal area. There were some scattered abdominal pelvic asci colton. The patient also had an attempt at a gastrostomy tube placement and this was an unsuccessful PE G tube placement attempt. The code status at the time of was DNR. ALLERGIES: No known drug allergies. HOSPITAL COURSE: Mr. Alvarez is a pleasant 82-year-old gentleman who was admitted to [facility] after a short stay in inpatient rehabilitation. He was found to have a recurrent large pleural effusion o n the left side. He was referred to the emergency room for admission. It was unclear the etiology o f the pleural effusions, but likely could have been due to acute on chronic systolic heart failure ex acerbation. An underlying pneumonia could not be ruled out. He was seen by Pulmonology and had a th oracentesis performed with removal of 2 liters of fluid; however, his symptoms recurred with signific ant dyspnea. Also, during the course of his admission, he inadvertently pulled out his PEG tube, whi ch had only recently been placed. Gastroenterology as well as General Surgery was consulted. A CT s can of the abdomen was done. Following the removal of the PEG tube, there was no radiographic eviden ce of peritonitis at that time, there was no evidence of any increase in white count or fever. There fore, two days later, an attempt was made at replacing the PEG tube. However, during the procedure, it was difficult to locate the stomach and the patient's abdomen was extremely distended and there wa s concern that there was significant pneumoperitoneum and it was felt not aviles to proceed. Conservat rachael treatment with regards to dealing with the PEG tube was pursued and the patient had a PICC line p laced with the intentions of starting parenteral nutrition. However, the patient was severely decond itioned, had significant malnutrition due to his previous prolonged hospitalization. He was also destiny ng treated for Enterococcus sepsis during this time as well. It was originally thought that he may h ave endocarditis; however, this was ruled out by transesophageal echo; however, he was being treated empirically for endocarditis. During this time, the patient's made the decision of changing his code status to DNR giving his overwhelming medical conditions and extremely poor prognosis. On 07/17, the patient became hypotensive and began to exhibit agonal respirations. An attempt was made to move him to the ICU and start Levophed for his blood pressure support; however, prior to being ab le to start the Levophed, the patient stopped breathing and he was pronounced at 4:05 a.m.
--- NOTE | 2017-08-11 13:15 | PQF ---
KISHA LO TONI MD [id number] [facility]- B11 [id number] CLINICAL DOCUMENTATION CLARIFICATION FORM: POST DISCHARGE Addendum to original discharge summary date: ____ Late entry note date: __ DATE: 08/11/2017 ATTN: DR. HARLEY Please exercise your independent, professional judgment in responding to the clarification form. Clinical indicators are provided on the bottom of this form for your review Please check appropriate box(es): [X ] Sepsis due to: (Pna, UTI, gangrenous gall bladder, etc.) __UTI- Due to: [ ] Device (please specify) [ ] Implant [ ] Graft [ ] Infusion [ ] SIRS due to non-infectious process (please specify etiology) [ X ] with organ dysfunction [ ] without organ dysfunction [ ] Severe sepsis with acute organ dysfunction of: (Examples: respiratory failure, encephalopathy, acute kidney failure, other) [ ] Septic Shock [ ] Localized infection without sepsis [ ] Other diagnosis [ ] Unable to determine In addition, please specify: Present on Admission (POA): [ X ] Yes [ ] No [ ] Unable to determine For continuity of documentation, please document condition throughout progress notes and discharge summary. Thank You. CLINICAL INDICATORS - SIGNS / SYMPTOMS / LABS: ER: VITALS - BP 109/63, PULSE 71, RESP 18, TEMP 96.3 H&P: SEPSIS, PATIENT HAS SUPRAPUBIC CATH Altered mental status WBC count 5.8 Positive blood cultures 08/03 PN: SEPSIS DS: ENTEROCOCCUS FAECALIS SEPSIS RISK FACTORS: SUPRAPUBIC CATH - REPLACED EVERY WEEK Cancer ENCEPHALOPATHY ARF TREATMENTS: Initiation Sepsis Protocol Daily CBC Blood/cultures antibiotics - broad spectrum (This form is maintained as a part of the permanent medical record) 2014 [employer] All Rights Reserved Ruth Ferrell, [facility], [email or web address]-H [email or web address] [phone] MTDD
--- NOTE | 2017-08-11 13:19 | PQF ---
KISHA LO TONI MD [id number] [place] [id number] CLINICAL DOCUMENTATION CLARIFICATION FORM: POST DISCHARGE Addendum to original discharge summary date: ____ Late entry note date: __ DATE: 08/11/2017 ATTN: DR. HARLEY Please exercise your independent, professional judgment in responding to the clarification form. Clinical indicators are provided on the bottom of this form for your review Please check appropriate box(s): X__ I (concur) with the Wound Care findings as stated below. [ ] Pressure Ulcer: (Stage I: Erythema; Stage II: Partial thickness; Stage III : Full thickness; Stage IV: Necrosis to muscle/bone) [ ] Location: POA: [ ] Yes [ ] No[ ] Unable to determine Stage (I to IV): (Left Right Bilateral N/A ) [ ] Location: POA: [ ] Yes [ ] No[ ] Unable to determine Stage (I to IV): (Left Right Bilateral N/A ) [ ] Location: POA: [ ] Yes [ ] No[ ] Unable to determine Stage (I to IV): (Left Right Bilateral N/A ) [ ] Gangrene present [ ] Yes [ ] ischemic gangrene [ ] gas gangrene [ ] No [ ] No pressure ulcer diagnosis [ ] Deep tissue injury [ ] Other diagnosis [ ] Unable to determine In addition, please specify: Present on Admission (POA): [ X ] Yes [ ] No [ ] Unable to determine For continuity of documentation, please document condition throughout progress notes and discharge summary. Thank You. CLINICAL INDICATORS - SIGNS / SYMPTOMS / LABS: 08/03 CONSULT: SACRAL DECUBITUS ULCER RISK FACTORS: Immobility/ debility Malnutrition TREATMENTS: Wound care (This form is maintained as a part of the permanent medical record) 2014 [employer]. All Rights Reserved Ruth Ferrell CCS, [employer]-H [email or web address] [phone] MTDD
== END 2017-08-07 03:05 | disposition expired | DRG 871 ==
LOC: ERS 14:23 → IMCU/EMU 17:46 → CCU 08-07 04:00
PROVIDERS: ADMIT Internal Medicine; ATTEND Internal Medicine
PROC: 0W9B3ZX Drainage of Left Pleural Cavity, Percutaneous Approach, Diagnostic (ICD-10-PCS; 2017-08-03)
PROC: 0T2BX0Z Change Drainage Device in Bladder, External Approach (ICD-10-PCS; 2017-08-03)
PROC: 0DJ08ZZ Inspection of Upper Intestinal Tract, Via Natural or Artificial Opening Endoscopic (ICD-10-PCS; principal; 2017-08-05)
PROC: 3E0436Z Introduction of Nutritional Substance into Central Vein, Percutaneous Approach (ICD-10-PCS; 2017-08-06)
PROC: 06H033Z Insertion of Infusion Device into Inferior Vena Cava, Percutaneous Approach (ICD-10-PCS; 2017-08-06)
DX: A41.81 Sepsis due to Enterococcus (principal); I50.23 Acute on chronic systolic (congestive) heart failure; J96.21 Acute and chronic respiratory failure with hypoxia; E43 Unspecified severe protein-calorie malnutrition; N17.9 Acute kidney failure, unspecified; G93.41 Metabolic encephalopathy; J91.8 Pleural effusion in other conditions classified elsewhere; D69.6 Thrombocytopenia, unspecified; I13.0 Hypertensive heart and chronic kidney disease with heart failure and stage 1 through stage 4 chronic kidney disease, or unspecified chronic kidney disease; E87.0 Hyperosmolality and hypernatremia; I42.9 Cardiomyopathy, unspecified; Z43.1 Encounter for attention to gastrostomy; R18.8 Other ascites; R65.20 Severe sepsis without septic shock; R13.12 Dysphagia, oropharyngeal phase; I48.0 Paroxysmal atrial fibrillation; N18.3 Chronic kidney disease, stage 3 (moderate); Z95.810 Presence of automatic (implantable) cardiac defibrillator; Z85.46 Personal history of malignant neoplasm of prostate; R33.9 Retention of urine, unspecified; Z85.6 Personal history of leukemia; Z66 Do not resuscitate; Z68.30 Body mass index [BMI] 30.0-30.9, adult; Z93.50 Unspecified cystostomy status; I87.8 Other specified disorders of veins; Z53.09 Procedure and treatment not carried out because of other contraindication
CPT/HCPCS: 32554; 36415; 36416; 36569; 70450; 71045; 74018; 74176; 74177; 80048; 80053; 81003; 81015; 82150; 82945; 83605; 83615; 83735; 83880; 84100; 84157; 84478; 85025; 87070; 87086; 87116; 87205; 87206; 88112; 88305; 89051; 94640; 94660; A4216; A4217; C1751; G8978-GP-CL; G8979-GP-CJ; J0290; J0696; J1644; J2001; J2704; J7050; J7620